=== PATIENT | female | born 1980 | race Caucasian/White ===

== ENCOUNTER → 2018-05-26 13:06 | Outpatient (CLI) | payer BC, SELFPAY ==
[2018-05-26 14:38] LABS: Absolute Eosinophil Count 0.23 k/cumm (0.0-0.7); Absolute Lymphocyte Count 2.21 k/cumm (1.2-3.4); Absolute Monocyte Count 0.41 k/cumm (0.11-0.7); Absolute Neutrophil Count 3.01 k/cumm (1.2-6.7); Basophils % 1.7; Eosinophils % 3.9; HCT 41.2 % (36.0-46.0); HGB 14.2 g/dL (12.0-15.5); Lymphocytes % 37.1; Mean Corp. HGB Concentration 34.5 g/dL (32.0-36.0); Mean Corpuscular Hemoglobin 29.5 pg (27.0-33.0); Mean Corpuscular Volume 85.5 fL (80-95); Mean Platelet Volume 9.7 fL (8.0-11.0); Monocytes % 6.9; Neutrophils % 50.4; Platelet Count 253 x1000/uL (130-400); RBC 4.82 m/cumm (4.00-5.20); RBC Distribution Width 12.6 % (11.7-14.6); White Blood Cell Count 5.96 k/cumm (4.4-10.8)
[2018-05-26 15:40] LABS: ALT 16 U/L (12-78); AST 17 U/L (15-37); Alkaline Phosphatase 56 U/L (46-116); Anion Gap 7.1 mmol/L (3-11); BUN 13 mg/dL (7-18); Bilirubin, Total 0.6 mg/dL (0.2-1.0); C-Reactive Protein 0.22 mg/dL (0.0-0.3); CO2 29.9 mmol/L (21.0-32.0); Calcium 8.9 mg/dL (8.5-10.1); Chloride 102 mmol/L (98-107); Glucose 82 mg/dL (70-100); Potassium 4.5 mmol/L (3.5-5.1); Sodium 139 mmol/L (136-145); TSH (W/Ref FT4) 1.66 uIU/mL (0.358-3.74); Total Protein 7.4 g/dL (6.4-8.2)
[2018-05-26 18:24] LABS: ESR 12 MM/HR (0-20)
[2018-05-26 21:01] LABS: T3,Free 2.9 pg/ml (2.8-5.3)
[2018-05-27 09:50] LABS: Rheumatoid Factor 10 IU/mL (<12.5)
[2018-05-27 14:01] LABS: ANA Interpretation Negative (NEGAT)
[2018-05-27 15:22] LABS: Lyme Ab w Rflx to Lyme Confirm Negative
[2018-05-28 14:54] LABS: Anaplasma phagocytophilum Negative (Negative); B. miyamotoi PCR Negative (Negative); Babesia divergens/MO-1 Negative (Negative); Babesia duncani Negative (Negative); Babesia microti Negative (Negative); Ehrlichia chaffeensis Negative (Negative); Ehrlichia ewingii/canis Negative (Negative); Ehrlichia muris eauclairensis Negative (Negative)
== END ==
PROVIDERS: PCP Nurse Practitioner; Visit Provider Nurse Practitioner
DX: E03.9 Hypothyroidism, unspecified (principal); R53.83 Other fatigue; M25.571 Pain in right ankle and joints of right foot; M25.572 Pain in left ankle and joints of left foot; M79.641 Pain in right hand; M79.642 Pain in left hand; R63.8 Other symptoms and signs concerning food and fluid intake; R22.0 Localized swelling, mass and lump, head
CPT/HCPCS: 36415; 80053; 85652; 84443; 84481; 85025; 86038; 86140; 86431; 86618; 87798

== ENCOUNTER 2019-01-03 09:04 | Outpatient (REF) | payer BC, SELFPAY ==
--- NOTE | 2019-01-03 09:00 | PAPFT_PTH ---
PATIENT: Sherry Skelton LOC: E[facility] U#:[id number] AGE/SX: 38/F ROOM: RE01/03/[address]: Pat Ceron APRN : 1980 BED: DIS: 01/03/2019 SPEC #: [id number] RECD: 01/03/19 13:18 STATUS: MAI RESuzie #: [id number] BOONE: 01/03/19 09:[address]: Pat Ceron DEPT: [facility] Cytology RECD BY: Desirae Ann Tissues: 1 - CX/ENDOCX FOR PAP SMEARS Procedures: PAP THIN PREP/UVM Screening HPV DNA PROBE Comments: [id number]
== END 2019-01-03 09:24 ==
LOC: LBN 09:04
PROVIDERS: PCP Nurse Practitioner; Visit Provider Nurse Practitioner
DX: Z12.4 Encounter for screening for malignant neoplasm of cervix (principal); Z11.51 Encounter for screening for human papillomavirus (HPV)
CPT/HCPCS: 88142; 87624

== ENCOUNTER → 2019-03-16 15:53 | Outpatient (CLI) | payer BC, SELFPAY ==
[2019-03-16 14:01] LABS: TSH (W/Ref FT4) 1.75 uIU/mL (0.358-3.74)
== END ==
PROVIDERS: PCP Nurse Practitioner; Visit Provider Nurse Practitioner
DX: E03.9 Hypothyroidism, unspecified (principal)
CPT/HCPCS: 36415; 84443

== ENCOUNTER 2019-08-30 11:42 | Outpatient (CLI) | payer BC, SELFPAY ==
[2019-08-30 12:30] LABS: HCT 37.6 % (36.0-46.0); HGB 12.5 g/dL (12.0-15.5); Mean Corp. HGB Concentration 33.2 g/dL (32.0-36.0); Mean Corpuscular Hemoglobin 28.9 pg (27.0-33.0); Mean Corpuscular Volume 86.8 fL (80-95); Mean Platelet Volume 9.5 fL (8.0-11.0); Platelet Count 166 x1000/uL (130-400); RBC 4.33 m/cumm (4.00-5.20); RBC Distribution Width 14.3 % (11.7-14.6); White Blood Cell Count 8.14 k/cumm (4.4-10.8)
[2019-08-30 14:53] LABS: ALT 612 U/L (14-59); AST 562 U/L (15-37); Albumin 3.2 g/dL (3.4-5.0); Alkaline Phosphatase 358 U/L (46-116); Anion Gap 10.7 mmol/L (3-11); BUN 8 mg/dL (7-18); Bilirubin, Total 0.5 mg/dL (0.2-1.0); CO2 26.3 mmol/L (21.0-32.0); CREATININE 0.91 mg/dL (0.55-1.02); Calcium 8.6 mg/dL (8.5-10.1); Chloride 104 mmol/L (98-107); Glucose 104 mg/dL (74-106); Potassium 3.9 mmol/L (3.5-5.1); Sodium 141 mmol/L (136-145); TSH (W/Ref FT4) 2.76 uIU/mL (0.36-3.74); Vitamin B12 1670 pg/mL (193-986)
[2019-08-30 14:57] LABS: Ferritin > 1000 ng/mL (8-252)
== END 2019-08-30 12:02 ==
PROVIDERS: PCP Nurse Practitioner; Visit Provider Nurse Practitioner
DX: E03.9 Hypothyroidism, unspecified (principal); R53.83 Other fatigue; R60.9 Edema, unspecified; R11.0 Nausea; I10 Essential (primary) hypertension
CPT/HCPCS: 36415; 80053; 85027; 82607; 82728; 84443

== ENCOUNTER 2019-08-31 11:29 | Outpatient (CLI) | payer BC, SELFPAY ==
[2019-08-31 12:47] LABS: Iron 54 ug/dL (50-170); Total Iron Binding Capacity 271 ug/dL (250-450); Transferrin Sat 20 % (15-50)
[2019-08-31 13:10] LABS: Mono Screening POSITIVE (Negative)
[2019-09-01 10:43] LABS: Hepatitis B Surface Ag Negative (Negative); Hepatitis C Ab w Rflx HCV PCR Negative (Negative)
[2019-09-01 13:35] LABS: Hep B Surface Ab Positive (See Note); Hepatitis B Core Antibody Negative (Negative); Hepatitis B Surface Antigen Negative (Negative)
[2019-09-01 13:48] LABS: HBs Antibody, Quant 226.8 mIU/mL
[2019-09-01 15:49] LABS: ANA Interpretation Negative (Negative)
== END 2019-08-31 11:49 ==
PROVIDERS: PCP Nurse Practitioner; Visit Provider Nurse Practitioner
DX: R94.5 Abnormal results of liver function studies (principal); Z11.59 Encounter for screening for other viral diseases
CPT/HCPCS: 36415; 86704; 86706; 86803; 87340; 83540; 83550; 86038; 86308

== ENCOUNTER 2020-06-22 02:15 | Outpatient (CLI) | payer BC, SELFPAY ==
[2020-06-22 12:54] LABS: ALT 29 U/L (14-59); AST 24 U/L (15-37); Albumin 3.6 g/dL (3.4-5.0); Alkaline Phosphatase 49 U/L (46-116); Anion Gap 7.1 mmol/L (3-11); BUN 12 mg/dL (7-18); Bilirubin, Total 0.6 mg/dL (0.2-1.0); CO2 26.9 mmol/L (21.0-32.0); CREATININE 1.06 mg/dL (0.55-1.02); Calcium 8.9 mg/dL (8.5-10.1); Chloride 104 mmol/L (98-107); Estimated GFR 58.33 (mL/min/1.73m2); Glucose 84 mg/dL (74-106); Potassium 4.7 mmol/L (3.5-5.1); Sodium 138 mmol/L (136-145); TSH (W/Ref FT4) 2.74 uIU/mL (0.36-3.74); Total Protein 6.5 g/dL (6.4-8.2)
== END 2020-06-22 02:35 ==
PROVIDERS: PCP Nurse Practitioner; Visit Provider Nurse Practitioner
DX: E03.9 Hypothyroidism, unspecified (principal); I10 Essential (primary) hypertension
CPT/HCPCS: 36415; 80053; 84443

== ENCOUNTER 2021-07-15 13:45 | Outpatient (CLI) | payer BC, SELFPAY ==
[2021-07-15 14:34] LABS: FREE T4 1.17 ng/dL (0.76-1.46); TSH 2.71 uIU/mL (0.36-3.74)
[2021-07-15 16:07] LABS: Anion Gap 6.8 mmol/L (3-11); BUN 11 mg/dL (7-18); CO2 28.2 mmol/L (21.0-32.0); CREATININE 0.9 mg/dL (0.55-1.02); Calcium 8.9 mg/dL (8.5-10.1); Chloride 104 mmol/L (98-107); Glucose 79 mg/dL (74-106); Potassium 4.4 mmol/L (3.5-5.1); Sodium 139 mmol/L (136-145)
== END 2021-07-15 13:46 | disposition home or self-care (01) ==
LOC: LBO 13:45
PROVIDERS: PCP Nurse Practitioner; Visit Provider Nurse Practitioner Family
DX: E03.9 Hypothyroidism, unspecified; I45.6 Pre-excitation syndrome
CPT/HCPCS: 36415; 80048; 84439; 84443

== ENCOUNTER 2021-12-13 04:02 | Outpatient (CLI) | payer OTHER, BC, SELFPAY ==
[2021-12-13 16:29] LABS: HCG Quant, Pregnancy 10 mIU/mL (1-3); TSH 1.69 uIU/mL (0.36-3.74)
[2021-12-13 22:39] LABS: Estradiol 46 pg/mL (See Note)
[2021-12-14 13:24] LABS: Antimullerian Hormone 3.6 ng/mL (0.15-7.5)
[2021-12-15 17:33] LABS: Testosterone, Total 27 ng/dL (8-60)
[2021-12-16 10:53] LABS: FSH 3.3 mIU/mL (See Note); Prolactin 17.6 ng/mL (See Table)
== END 2021-12-13 04:03 | disposition home or self-care (01) ==
PROVIDERS: Obstetrics & Gynecology; PCP Nurse Practitioner; Visit Provider Obstetrics & Gynecology
DX: N91.4 Secondary oligomenorrhea (principal); O26.851 Spotting complicating pregnancy, first trimester
CPT/HCPCS: 36415; 84403; 82670; 83001; 83520; 84146; 84443; 84702

== ENCOUNTER 2022-03-07 16:39 | Emergency (ER) | payer OTHER, SELFPAY ==
[2022-03-07 16:45] VITALS: BP 134/81; PULSE 106; RESP 18; TEMP 36.5; O2SAT 100
--- NOTE | 2022-03-07 17:08 | W.ED.GENAD ---
Discharge Plan Discharge Details Chief Complaint: GenMedical Primary Care Provider: Pat Ceron ED Provider: Hayden Short Home Meds and New Rx's Prescriptions: No Action prenat.vits,rajinder,[id number]-zbynr Tablet 1 tab PO DAILY propranolol 60 mg capsule,extended release 24 hr 60 mg PO DAILY Qty: 90 3RF levothyroxine 50 mcg tablet 50 mcg PO DAILY Qty: 90 1RF mirtazapine 30 mg tablet 30 mg PO HS Qty: 90 3RF triamcinolone acetonide 0.1 % cream 1 applic topical BID Qty: 30 3RF multivitamin [Daily Vitamin] 1 EACH tablet 1 tab PO DAILY glucosamine sulfate 2KCl 1,000 MG tablet 1 tab PO DAILY Medical Decision Making 51-year-old for trimester . Positive COVID x1 day. Case discussed Dr. Palmer from [employer]. The plan is for the patient to bepaxlovid if her renal function is adequate HPI General Date/Time Provider Initiated Documentation: 03/07/22 16:43. HPI Narrative: 41-year-old presents to the emergency room for evaluation of myalgias arthralgias intermittent headaches mild cough, sore throat as well as low-grade fevers at home. She just returned from a trip to [place] and is concerned that she may have contracted some viral infection. She did take some Tylenol 9 AM this morning and did feel better. She felt a bit nauseous earlier today but no vomiting. She thought she was going to have diarrhea but she did not. She is vaccinated. Related Data Home Medications Medication Instructions Recorded Confirmed glucosamine sulfate 2KCl 1,000 mg 1 tab PO DAILY 04/06/13 02/17/22 tablet multivitamin (Daily Vitamin tablet) 1 tab PO DAILY 04/06/13 02/17/22 prenat.vits,rajinder,fmw-huye-ltdjw 1 tab PO DAILY 08/02/21 02/17/22 levothyroxine 50 mcg tablet 50 mcg PO DAILY #90 tab-caps 02/17/22 02/17/22 mirtazapine 30 mg tablet 30 mg PO HS #90 tabs 02/17/22 02/17/22 propranolol 60 mg capsule,24 60 mg PO DAILY #90 tabs 02/17/22 02/17/22 hr,extended release triamcinolone acetonide 0.1 % 1 applic topical BID #30 grams 02/17/22 02/17/22 topical cream Previous Rx's Medication Instructions Recorded levothyroxine 50 mcg tablet 50 mcg PO DAILY #90 tab-caps 02/17/22 mirtazapine 30 mg tablet 30 mg PO HS #90 tabs 02/17/22 propranolol 60 mg capsule,24 60 mg PO DAILY #90 tabs 02/17/22 hr,extended release triamcinolone acetonide 0.1 % 1 applic topical BID #30 grams 02/17/22 topical cream Allergies Allergy/AdvReac Type Severity Reaction Status Date / Time bupropion Allergy Intermediate Hives Verified 03/07/22 16:49 Sulfa (Sulfonamide Allergy Intermediate hives Verified 03/07/22 16:49 Antibiotics) General Stated Complaint: GenMedical KIM: 3 Review of Systems Narrative: Constitutional see HPI HPI HEENT see HPI Cardiovascular no palpitations Respiratory no shortness of breath GI see HPI diagnosed with yesterday. MSK see HPI Skin no rashes Neuro see HPI Endo negative Hematological negative PFSH All Active Problems Secondary oligomenorrhea (Acute) Anxiety (Acute) Depressive disorder (Chronic) Exercise-induced asthma (Acute 03/16/18) Hypothyroidism (Acute 12/07/13) Obsessive compulsive disorder (Acute) Vhnsi-Tbvgibrmc-Mptkp pattern (Acute) Medical History Bilateral wrist pain IC (interstitial cystitis) (12/01/16) Lumbar back pain Polycystic ovaries Right leg numbness Temporomandibular joint disorder Family History Mother Essential hypertension Heart disease Hyperlipidemia Mental disorder Thyroid disorder Father Personal history of malignant neoplasm LUNG Heart disease Mental disorder Grandfather Heart disease Mental disorder Grandfather Heart disease Mental disorder Grandmother Personal history of malignant neoplasm LUNG Heart disease Mental disorder Grandmother Heart disease Mental disorder Maternal Uncle Diabetes Heart disease Mental disorder Maternal Aunt Diabetes Heart disease Mental disorder Thyroid disorder 03/16/18-reports 3 aunts great aunt Arthritis Social History Smoking/Tobacco Use Status: Never Second Hand Exposure: No Smoking risk assessment performed?: Yes Alcohol Intake: never Drug use: Occasionally Substance use type: marijuana Adopted: No Caregiver/Support person: No Foster care: No Household members: spouse 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 Pets and animals: No Sexually active: Yes Do you think of yourself as: straight/heterosexual Current gender identity: female What is your relationship status?: How often do you talk on the phone with friends or family?: twice per week How often do you get together with friends or relatives?: once per week Do you belong to any clubs or organized social groups?: no Panel score (0-1 are the most socially isolated patients): 2 What type of physical activity do you participate in: bicycling, regular exercise and other Duration: 45-60 minutes/day Frequency: 3-4 times per week Special mukesh needs: No Seatbelt use: always Helmet use: Yes Helmet use: always Drive intox or ride w/intox class b truck driver: No Working smoke detector in home: Yes Fire extinguisher in home: Yes Carbon monox detector in home: Yes Do you feel safe at home: Yes Do you feel safe in your relationship?: Yes Victim of physical abuse: No Victim of emotional abuse: No Victim of sexual abuse: No History History 1 Para 0 Hx # Term Pregnancies 0 Multiple births 0 Hx # Pregnancies 0 Ectopic pregnancies 0 AB induced 0 Hx Number of Living Children 0 AB spontaneous 1 Exam Narrative Exam Narrative: Awake alert [place] x3 calm no acute distress. Cooperative and pleasant PERRLA EOMI MMM oropharynx normal Neck supple. No lymphadenopathy Regular rhythm and rate no murmurs Chest is clear to auscultation bilaterally Abdominal soft not distended not tender Skin no rashes normal cap refill Neuro grossly intact Extremities normal cap refill no edema Psych normal mood and affect Course Vital Signs Vital signs: Vital Signs Temperature 36.5 C 03/07/22 16:45 Pulse 106 H 03/07/22 16:45 Respiratory Rate 18 03/07/22 16:45 Blood Pressure 134/81 03/07/22 16:45 Pulse Oximetry 100 03/07/22 16:45 Temperature 36.5 C 03/07/22 16:45 Temperature Source Temporal Artery Scan 03/07/22 16:45 Pulse 106 H 03/07/22 16:45 Respiratory Rate 18 03/07/22 16:45 Respiratory Effort Non-Labored 03/07/22 16:49 Blood Pressure 134/81 03/07/22 16:45 Blood Pressure Position Sitting 03/07/22 16:45 Pulse Oximetry 100 03/07/22 16:45 Oxygen Delivery Method Room Air 03/07/22 16:45 Oxygen Flow Rate 0 03/07/22 16:45
[2022-03-07 17:37] LABS: Influenza A PCR Negative (Negative); Influenza B PCR Negative (Negative); RSV PCR Negative (Negative)
[2022-03-07 17:43] LABS: COVID-19 PCR Positive (Negative)
[2022-03-07 17:44] LABS: Source Nasopharynx
[2022-03-07 18:17] LABS: Bilirubin Negative (Negative); Blood Negative (Negative); Clarity Clear (Clear); Glucose Negative (Negative); Ketones Negative (Negative); Leukocyte Esterase Negative (Negative); Nitrite Negative (Negative); Specific Gravity 1.025 (1.005-1.025); Urobilinogen 0.2 EU/dL (Up TO 0.2); pH 5.5 (5-8)
[2022-03-07 19:14] LABS: Anion Gap 8.2 mmol/L (3-11); BUN 11 mg/dL (7-18); CO2 25.8 mmol/L (21.0-32.0); CREATININE 0.9 mg/dL (0.55-1.02); Calcium 9.1 mg/dL (8.5-10.1); Chloride 99 mmol/L (98-107); Glucose 91 mg/dL (74-106); Potassium 3.9 mmol/L (3.5-5.1); Sodium 133 mmol/L (136-145)
== END 2022-03-07 20:18 | disposition home or self-care (01) ==
PROVIDERS: Emergency Provider Emergency Medicine; PCP Nurse Practitioner
DX: O98.511 Other viral diseases complicating pregnancy, first trimester (principal); U07.1 COVID-19; Z3A.00 Weeks of gestation of pregnancy not specified
CPT/HCPCS: 80048; 87637; 99283; 81003

== ENCOUNTER 2022-03-25 06:20 | Day surgery (SDC) | payer OTHER, SELFPAY ==
[2022-03-25] VITALS (8 sets, daily range): BP systolic 88–121; BP diastolic 34–74; PULSE 73–88; RESP 15–22; TEMP 36–36.7; O2SAT 97–100; BMI 30.2
--- NOTE | 2022-03-25 06:55 | ANES.PREOP_ITS ---
General Info Date of Service Date Performed: 03/25/22 Height: 5 ft 6 in Weight: 84.9 kg Body Mass Index (BMI): 30.2 Surgical Procedure: Operation Date: 03/25/22 07:40 Proposed Procedure Side Surgeon p Suction Completion, D&C Beverly Coyle DO Meds Allergies and Home Medications Allergies Allergy/AdvReac Type Severity Reaction Status Date / Time bupropion Allergy Intermediate Hives Verified 03/21/22 14:03 Sulfa (Sulfonamide Allergy Intermediate hives Verified 03/21/22 14:03 Antibiotics) Home Medication Medication Instructions Recorded glucosamine sulfate 2KCl 1,000 mg 1 tab PO DAILY 04/06/13 tablet multivitamin (Daily Vitamin tablet) 1 tab PO DAILY 04/06/13 prenat.vits,rajinder,ubj-yios-qqnlo 1 tab PO DAILY 08/02/21 levothyroxine 50 mcg tablet 50 mcg PO DAILY #90 tab-caps 02/17/22 mirtazapine 30 mg tablet 30 mg PO HS #90 tabs 02/17/22 propranolol 60 mg capsule,24 60 mg PO DAILY #90 tabs 02/17/22 hr,extended release triamcinolone acetonide 0.1 % 1 applic topical BID #30 grams 02/17/22 topical cream Current Visit Medications: Current Medications Generic Name Dose Route Start Last Admin Trade Name Freq PRN Reason Stop Dose Admin Ringer's Solution 1,000 mls @ 125 mls/hr 03/25/22 06:00 IV 04/23/22 23:59 INFUSION RAJWINDER Doxycycline Hyclate 100 mg/ 100 mls @ 100 mls/hr 03/25/22 06:00 Sodium Chloride IVPB 03/25/22 16:00 PREOP RAJWINDER IV Miscellaneous Supplies 1 each 03/25/22 06:00 Iv Access IV 04/23/22 23:59 DIRECTED RAJWINDER Sodium Chloride 0 ml 03/25/22 06:00 Normal Saline Flush 10 Ml Syr IV 04/23/22 23:59 PRN PRN Sodium Chloride 0 ml 03/25/22 06:00 Normal Saline 10 Ml Vial IJ 04/23/22 23:59 DIRECTED PRN Sterile Water 0 ml 03/25/22 06:00 Water,Injection,Sterile 10 Ml Vial IJ 04/23/22 23:59 DIRECTED PRN PFSH Active Problems Active Problems: Problem Status Onset Code COVID-19 affecting in first trimester O98.511, U07.1 Secondary oligomenorrhea N91.4 Anxiety F41.9 Depressive disorder F32.9 Exercise-induced asthma 03/16/18 J45.990 Hypothyroidism 12/07/13 E03.9 Obsessive compulsive disorder F42.9 Bmavx-Sosfkndqu-Qekff pattern I45.6 Medical History Medical History Bilateral wrist pain IC (interstitial cystitis) (12/01/16) Lumbar back pain Polycystic ovaries Right leg numbness Temporomandibular joint disorder Tobacco Smoking/Tobacco Use Status: Never Passive smoking exposure: No Second hand exposure: No Alcohol Alcohol Intake: never Substance Use Substance use: Occasionally Substance use type: marijuana Details: Alcohol and marijuna use have stopped since + test. Prental History History 1 Para 0 Hx # Term Pregnancies 0 Multiple births 0 Hx # Pregnancies 0 Ectopic pregnancies 0 AB induced 0 Hx Number of Living Children 0 AB spontaneous 1 Past Pregnancies Del. Date GA/Weeks # Outcome Route Wgt Sex Labor Lgth Anesthes ia Loc ation Prov Complic 08/26/21 8 No Unsuccessful Vital Signs and Lab Results Lab Results Blood Type / Crossmatch: No Data to Display Complete Blood Count: No Data to Display Complete Metabolic Panel: Sodium Level 133 mmol/L (136-145) L 03/07/22 18:05 Potassium Level 3.9 mmol/L (3.5-5.1) 03/07/22 18:05 Chloride Level 99 mmol/L (98-107) 03/07/22 18:05 Carbon Dioxide Level 25.8 mmol/L (21.0-32.0) 03/07/22 18:05 Blood Urea Nitrogen 11 mg/dL (7-18) 03/07/22 18:05 Creatinine 0.9 mg/dL (0.55-1.02) 03/07/22 18:05 Estimated GFR/1.73 m2 >= 60.00 (mL/min/1.73m2) 03/07/22 18:05 Calcium Level 9.1 mg/dL (8.5-10.1) 03/07/22 18:05 Glucose Level 91 mg/dL (74-106) 03/07/22 18:05 Liver Function Panel: No Data to Display Coagulation Panel: No Data to Display Cardiac Panel: No Data to Display Arterial Blood Gas: No Data to Display Venous Blood Gas: No Data to Display Pancreas Panel: No Data to Display Thyroid Panel: No Data to Display Infectious Disease: Coronavirus (COVID-19)(PCR) Positive (Negative) A 03/07/22 16: 53 Coronavirus 2019 Source Nasopharynx 03/07/22 16:53 Influenza Virus Type A (PCR) Negative (Negative) 03/07/22 16:5 3 Influenza Virus Type B (PCR) Negative (Negative) 03/07/22 16:5 3 Respiratory Syncytial Virus (PCR) Negative (Negative) 03/07/22 16:53 Blood Cultures: No Data to Display Toxicology Panel: No Data to Display Panel: Urine HCG, Qualitative Positive 03/06/22 14:40 Anesthesia Assessment and Plan Anesthesia History Personal History: No History of Anesthesia Complications Family History: No Family History of Anesthesia Complications Exercise Tolerance Exercise Tolerance: Metabolic Equivalents>4 Pertinent Negatives Pertinent Negatives: No Symptoms of GERD, No Major Cardiovascular Symptoms or Complaints, No Major Pulmonary Symptoms or Complaints and No History of CVA/TIA Cardiac & Pulmonary Exam Cardiac Exam: Normal S1/S2 Heart Sounds Pulmonary Exam: Clear Bilateral Breath Sounds Implantable Cardiac Device Does patient have a Pacemaker or an ICD?: No Airway Exam Known Difficult Airway: No Mallampati Class: 1 Mouth Opening: Normal (> 3cm) Thyromental Distance: Greater than 3 cm Neck Range of Motion: Full ROM Neck Circumference: Normal Teeth Condition: Normal Dentition ASA Classification ASA Score: ASA 2 Emergency Case?: No NPO Status NPO Status: NPO Clears >2 hours, Solids >8 hours Status Status: Other (Suction completion ) Anesthesia Plan Resuscitation Status: Full Code Anesthesia Technique: General Anesthesia Airway Planned: LMA Monitors Used: Standard Monitors
[2022-03-25] MEDS: Lactated Ringers 1,000 ML 125 ML IV (07:00)
[2022-03-25] MEDS: DOXYCYCLINE 100 MG in Normal Saline 100 ML IVPB (07:01)
[2022-03-25 07:11] LABS: Abs Immature Grans 0.07 10^3/uL (0.0-0.06); Absolute Basophil Count 0.07 10^3/uL (0.0-0.2); Absolute Lymphocyte Count 1.43 10^3/uL (1.2-3.4); Basophils % 0.6; Eosinophils % 0.8; HCT 35.8 % (36.0-46.0); HGB 12.7 g/dL (11.2-15.7); Immature Grans % 0.6; Lymphocytes % 11.5; MCH 29.6 pg (27.0-33.0); MCHC 35.5 % (32.0-36.0); MCV 83 fL (80-95); MPV 9.4 fL (8.0-11.0); Monocytes % 6.3; Neutrophils % 80.2; Platelet Count 233 10^3/uL (130-400); RBC 4.29 10^6/uL (3.93-5.22); RDW 11.8 % (11.7-14.6); RDW-SD 35.6 fL; WBC 12.45 10^3/uL (4.4-10.8)
[2022-03-25 07:12] LABS: Absolute Monocyte Count 0.78 10^3/uL (0.1-0.8); Absolute Neutrophil Count 9.98 10^3/uL (1.2-6.7)
--- NOTE | 2022-03-25 07:39 | NUR.NOTE ---
About 1min after starting Doxycycline IV infusion pre-op, pt c/o of feeling pain like fire at the IV site. IV abx immediately stopped, LR resumed at 125ml/hr, pt noted relief after about 30-60 seconds of stopping the abx and starting the IV flush. Prachi Lemons CRNA made aware and indicated that we would not resume the abx until patient was asleep in the OR. The patient's reaction to the abx and instruction from Prachi Lemons CRNA was relayed to Maegan Silverio, circulating nurse, and Dr. Coyle who both verbalized understanding. Pt verbalized understanding and comfort with this plan as well.
--- NOTE | 2022-03-25 07:55 | POCSPONT_PTH ---
PATIENT: Sherry Skelton LOC: [facility] U#:[id number] AGE/SX: 41/F ROOM: RE03/25/[address]: Beverly Coyle DO : 1980 BED: DIS: 03/25/2022 SPEC #: [id number] RECD: 03/25/22 12:02 STATUS: MAI RE #: [id number] BOONE: 03/25/22 07:[address]: Beverly Coyle DEPT: Surgical Specimen RECD BY: Desirae Ann ENTERED: 03/25/22 12:04 SP TYPE: BRENNON BAUTISTA DR: Pat Ceron APRN Tissues: 1 - ,SPONTANEOUS CHROMOSOME ANALYSIS PROFILE Procedures: GROSS AND MICRO LEVEL 4 CHROMOSOME ANALYSIS 15-20 CELLS CHROMOSOME ANALYSIS TISSUE CULTURE Comments: [id number] (SUBMITTED IN [facility], [employer] - [id number])
--- NOTE | 2022-03-25 08:46 | ROE_ITS ---
Date of service: 03/25/22 Time of Service: 08:46 Operative Note Operative Note DATE OF PROCEDURE: 03/25/22 PRE-OP DIAGNOSIS: Missed POST-OP DIAGNOSIS: same PROCEDURE: Dilation curettage with suction SURGEON: Beverly Coyle ANESTHESIA TYPE: General LMA/ETT Refer to Anesthesia Record ESTIMATED BLOOD LOSS: 75 PATHOLOGY: other (1. Products of conception 2. Products of conception for karyotype) COMPLICATIONS: None Patient was transported to: same day Patient's condition: stable Indications: Missed Findings: Moderate products of conception Procedure Description: After full informed consent was obtained, and patient received 100 mg of doxycycline IV, she was transported to the operating suite where she is placed in dorsal supine position. General anesthesia administered via LMA without difficulty. She is placed in the modified dorsolithotomy position in yellowfin stirrups and prepped and draped in the usual sterile fashion. Exam under anesthesia revealed a uterus that was midline and mobile approximately 6 to 8 weeks size. At this point speculum was inserted and an Allis clamp was used to grasp the anterior lip of the cervix. Cervical os was gently dilated to the point that a 7 Swedish suction curette could be passed without difficulty. With gentle suction curettage the uterine cavity was emptied of contents. A second sharp curettage was performed and the coarse cry of the uterus could be felt in all 4 quadrants. A repeat suction curettage was performed for scant tissue. Uterus was firm and involuted post procedure. Allis clamp and speculum were removed. Patient was returned to the dorsal supine position and awoke from anesthesia with ease. She was taken the recovery room in stable condition. Pathology: 1. Products of conception 2. Products of conception for karyotype EBL: 100 mL Complications: None apparent Fluids: Crystalloid per anesthesia
--- NOTE | 2022-03-25 09:51 | W.ANESPOSTOP ---
Postoperative Evaluation Date, Time and Location Date Performed: 03/25/22 Time Performed: 09:51 Patient Location: Day Surgery Unit Vital Signs Most Recent Imported Vital Signs: Most Recent Vital Signs Temp Pulse Resp BP Pulse Ox 36.3 C L 73 16 115/73 99 03/25/22 09:05 03/25/22 09:05 03/25/22 09:05 03/25/22 09:05 03/25/22 09:05 Pain Score Most Recent Pain Score: Most Recent Pain Score Pain Level 0 03/25/22 09:05 Assessment Mental Status: Awake (Alert & Oriented to Patient Baseline) Airway and Respiratory Function: Patent airway with normal (patient baseline) respiratory exam Cardiovascular Function: Hemodynamically Stable Hydration Status: Adequately Hydrated Nausea & Vomiting: No Nausea or Vomiting Pain: Pain is tolerable per patient Peripheral Nerve Block: Patient did not receive a nerve block
== END 2022-03-25 09:57 | disposition home or self-care (01) ==
PROVIDERS: PCP Nurse Practitioner; Visit Provider Obstetrics & Gynecology
PROC: (CPT 59841; principal; 2022-03-25 07:30)
DX: O02.1 Missed abortion (principal); O98.511 Other viral diseases complicating pregnancy, first trimester; U07.1 COVID-19; F32.A Depression, unspecified; F41.9 Anxiety disorder, unspecified; E03.9 Hypothyroidism, unspecified; O99.281 Endocrine, nutritional and metabolic diseases complicating pregnancy, first trimester; Z3A.00 Weeks of gestation of pregnancy not specified; I45.6 Pre-excitation syndrome; J45.990 Exercise induced bronchospasm; O99.511 Diseases of the respiratory system complicating pregnancy, first trimester; O99.411 Diseases of the circulatory system complicating pregnancy, first trimester; O99.341 Other mental disorders complicating pregnancy, first trimester
CPT/HCPCS: 59820; 36415; 86850; 86900; 86901; 88305; 85025; 88233; 88262; J0131; J1100; J1200; J1885; J2250; J2405

== ENCOUNTER 2022-04-07 19:51 | Outpatient (REF) | payer OTHER, SELFPAY | END 2022-04-07 19:52 | disposition home or self-care (01) | LOC: LBN 19:51 | PROVIDERS: PCP Nurse Practitioner; Visit Provider Nurse Practitioner Family | DX: J02.9 Acute pharyngitis, unspecified (principal) | CPT/HCPCS: 87070 ==

== ENCOUNTER 2022-05-09 01:59 | Outpatient (CLI) | payer OTHER, SELFPAY ==
--- OUTSIDE RECORDS SUMMARY | 2022-05-09 02:11 | XMS_ITS | Encounter Summary ---
:1980 Author Organization [facility] Address [address] [place] [address] Care Team Providers Name Role Phone Cindi Espinoza MD Primary Care Provider Reason for Visit Reason Comments Infertility Miscarriage Encounter Details Date Type Department Care Team Description 04/25/2022 Telemedicine [facility] Sheryl Noriega Miscarriage (Primary Reproductive Medicine MD Tyra Dx) [facility] - [address] [place] [address] [address] [place] [address] [address], [place] [address] (Wo rk) Social History Tobacco Use Types Packs/Day Years Used Date Never Smoker Smokeless Tobacco: Never Used Alcohol Use Standard Drinks/Week Comments Yes 0 (1 standard drink = 0.6 oz pure alcoho l) occassional ~4 drinks per year Alcohol Habits Answer Date Recorded How often do you have a drink containing Not asked alcohol? How many drinks containing alcohol do Not asked you have on a typical day when you are drinking? How often do you have six or more drinks Not asked on one occasion? Comment: occassional ~4 drinks per year Sex Assigned at Date Recorded Not on file documented as of this encounter Last Filed Vital Signs Vital Sign Reading Time Taken Comments Blood Pressure - - Pulse - - Temperature - - Respiratory Rate - - Oxygen Saturation - - Inhaled Oxygen Concentration - - Weight 79.8 kg (176 lb) 04/25/2022 1026 EDT Height 167.6 cm (5' 6) 04/25/2022 1026 EDT Body Mass Index 28.41 04/25/2022 1026 EDT documented in this encounter Progress Notes Sheryl Noriega MD - 04/25/2022 1000 EDT Images from the original note were not included. [facility] REGINALD Telehealth visit - Follow up Chief Complaint Patient presents with ??? Infertility ??? Miscarriage Sherry, 41 y.o. is contacted for an (audio-visual) Telehealth visit. Today's visit was provided through telemedicine conferencing: Using [employer] platform. Consent: The concept of telemedicine?? has been described to the patient. Patient has been informed of the anticipated benefits and possible risks. Patient understands the information provided regarding telemedicine, has had the opportunity to ask questions about this information, and all questions have been answered to patient's satisfaction. Patient consents for the use of telemedicine in his/her medical care and authorizes the transmission of any relevant medical information to providers and their staffinvolved in patient's medical or mental health care. The location of the patient : Home The location of the provider: Office The following staff and their role did participate in today's encounter visit: Sheryl Noriega MD ROSAURA Talbert is a 41 yo with hypothyroidism, here for follow up to review results of fertility testing and discuss management options. Had initial consult on 01/10/22: IUD placed in 2017 due to very irregular periods (about 2 per year). IUD taken out in March of 2021 in order to attempt conception. She conceived in May and had a miscarriage in July 2021 that wastreated with misoprostol. She was 12 weeks at the time but she states the was 8 weeks in size. The misoprostol was a horrible experience with very painful contractions. She has been trying to conceive since this time without success. She notes very irregular and long periods about every 37-42 days with a lot of intermenstrual spotting and ovulation pain. Conceived the same cycle as had HyCoSy, but miscarried. Saw embryo with heartbeat, then follow up scan at 8 weeks no more heartbeat. Had D&C 03/25/22; chromosome testing of POC still in process. First menses after miscarriage in July of last year was 6 weeks later after took Miso. Component Latest Ref Rng & Units 12/13/2021 01/24/2022 Estradiol See Note pg/mL 46 Prolactin See Table ng/mL 17.6 FSH See Note mIU/mL 3.3 Antimullerian Hormone (AMH) Result 3.74 (92%ile) 25OH Vitamin D Tot 30 - 100 ng/mL 38 HyCoSy 01/24/22 LMP on 01/18/2022. Day of cycle: 7. Uterus ======= Uterus: Appears normal Uterus position: Anteverted Uterine malformations: None Myometrium: Appears normal Endometrium: Trilaminar endometrium Cervix details: Normal appearance Uterus long 10.3 cm Uterus ap 4.1 cm Uterus tr 5.0 cm Endometrial thickness, total 7.3 mm Fibroids: No fibroids identified Polyps: No polyps identified Procedure SIS procedure: risks,benefits and procedure reviewed with the patient. Consent signed. Speculum exam,cervix washed X 3 with betadine. Catheter placed and saline instilled under US observation. Patient tolerated procedure. HyCoSy shows normal cavity with no epithelial or intracavitary lesions and bilateral flow of air bubbles out the tubal ostia and free fluid in cul de sac afterward consistent with bilateral tubal patency. Right Ovary Rt ovary: Visualized, normal appearance Rt ovary morphology: Normal physiologic changes Rt ovary D1 3.0 cm Rt ovary D2 1.5 cm Rt ovary D3 1.8 cm Rt ovary mean 2.1 cm Rt ovary vol 4.1 cm cubed Rt ovary other findings: AFC = 7 Left Ovary Lt ovary: Visualized, normal appearance Lt ovary morphology: normal physiologic changes Lt ovary D1 2.6 cm Lt ovary D2 2.5 cm Lt ovary D3 2.0 cm Lt ovary mean 2.3 cm Lt ovary vol 6.5 cm cubed Lt ovary other findings: AFC = 9 Cul de Sac Appears normal. No free fluid visualized. ======== Impression Normal uterus, trilaminar endometrium. SHG: Coronal rendered image of the uterus shows a normal uterine cavity. HyCoSy showed preferential flow out the left tube; able to see a small flash on the right with righthip raised, then free fluid next to the right ovary. Normal ovaries with combined AFC of 16. Semen analysis for Yovany Ceja Latest Ref Rng & Units 01/31/2022 Partner Sherry Sanon Referring Provider Arsen Time Received 1,115 Received by Examined at 1,135 Viscosity Norm/Viscous normal pH 7.2 - 9 8.4 Specimen Volume >=1.5 ml 2.6 Sperm Count >=15 M/ml 55 Total Sperm Count >=39 Million 143 Motility >=40% 56 Motility, Speed of Progression(graded),POC 3+UndulatingRapidProg Total Motile Sperm <=10mill do IUI scrn million 80.1 Round Cells per 200X per 200X 1 Normal Forms >=4 % 3 (L) PAST MEDICAL HX: Past Medical History: Diagnosis Date ??? Anxiety and depression ??? Hypothyroidism ??? OCD (obsessive compulsive disorder) ??? Atlam-Efexcabwx-Hzrpe (WPW) syndrome ablation in 1994 PAST SURGICAL HX: Past Surgical History: Procedure Laterality Date ??? ATRIAL ABLATION SURGERY 1994 ??? TEMPOROMANDIBULAR JOINT SURGERY Bilateral 2011 ??? WISDOM TOOTH EXTRACTION FAMILY HX: family history includes Heart Disease in her paternal grandfather; Thyroid Cancer/Nodule in her maternal aunt; Thyroid Disease in her mother. SOCIAL HX: reports that she has never smoked. She has never used smokeless tobacco. She reports current alcohol use. She reports current drug use. Drug: Marijuana. MEDICATIONS: Current Outpatient Medications Medication Sig Dispense Refill ??? Xwxzxpwcuvq-Vdzcpedjl-Lfz C-Mn (GLUCOSAMINE-CHONDROITIN COMPLX) Cap Take by mouth daily. ??? levothyroxine (SYNTHROID) 50 mcg tablet Take 50 mcg by mouth daily. ??? MIRTAZAPINE ORAL Take 30 mg by mouth. ??? Multivitamins with Minerals Tab Take 1 Tab by mouth daily. ??? propranolol HCl (PROPRANOLOL ORAL) Take 60 mg by mouth. No current facility-administered medications for this visit. ALLERGIES: Allergies Allergen Reactions ??? Aspirin GI upset If taken 2-3 days in a row ??? Other - See Comments Rash Fragrance/perfumes-itchy nose, burning skin ??? Sulfa (Sulfonamide Antibiotics) rash ??? Wellbutrin [Bupropion Hcl] Hives 10 Point ROS :Systems reviewed found to be negative except as above. OBJECTIVE: Vitals: 04/25/22 1026 Weight: 79.8 kg (176 lb) Height: 167.6 cm (66) Body mass index is 28.41 kg/m??. General: NAD alert and oriented ??3, answers questions appropriately Assessment/Plan: 41 yo with oligo-ovulation after miscarriages, hypothyroidism well controlled on synthroid. Next TSH check due in June. For 2 miscarriages, recommend to wait and see if POC show aneuploid embryo in which case no additional testing is indicated. If euploid, could test for APLS since other endocrine testing has been done within past year and all normal (Vit D, prolactin, TSH). Offered diabetes screen, declined for now. Discussed that thrombophilias have not been shown to be significantly associated with recurrent loss so these tests are no longer recommended for this scenario. We reviewed the results of their fertility testing as detailed above, and discussed the impact of female age on fertility: She can expect ~8% chance of per ovulatory cycle with one egg released. Can increase chance of conception with superovulation with clomid, plan to start with 50 mg CD 5-9 then OPK/ timed intercourse. Reviewed 5-7% risk of twins and ~1:500 risk of triplets with clomid (likely lower than this given her age). 1/3 of women experience side effects such as hot flashes, moodiness, headaches, or breast tenderness She will call with next menses to get clomid Rx. The alternative is IVF; we reviewed this process briefly today. Discussed 8 month wait list; they have completed workup and would like to be on the list. I spent a total of 25 minutes on the date of this encounter meeting with the patient and reviewing documentation/coordinating care as described in the above note. No procedures were performed at the time of the visit. Sheryl Noriega MD documented in this encounter Plan of Treatment Not on filedocumented as of this encounter Visit Diagnoses Diagnosis Miscarriage - Primary Unspecified spontaneous without mention of complication documented in this encounter Historical Medications This list may reflect changes made after this encounter. Medication Sig Dispensed Refills Start Date End Date levothyroxine (SYNTHROID) 50 Take 50 mcg by 0 mcg tablet mouth daily. added in this encounter Care Teams Marketing Services Specialist Relationship Specialty Start Date End Date Cindi Espinoza MD PCP - General 01/20/12 [address] [place] [address] documented as of this encounter
--- OUTSIDE RECORDS SUMMARY | 2022-05-09 02:11 | XMS_ITS | Encounter Summary ---
:1980 Author Organization [facility] Address [address] [place] [address] Care Team Providers Name Role Phone Cindi Espinoza MD Primary Care Provider Reason for Visit Reason Onset Date Comments Appointment Related 04/28/2022 Encounter Details Date Type Department Care Team Description 04/28/2022 Telephone [facility] Sheryl Noriega, Appointment Related Women's Services - [address] [address] [address], [place] [id number] (Wo rk) Social History Tobacco Use Types [...] on file documented as of this encounter Ordered Prescriptions Prescription Sig Dispensed Refills Start Date End Date clomiPHENE (CLOMID) 50 mg Take 1 Tablet by 5 Tablet 0 04/11 tablet mouth daily. documented in this encounter Miscellaneous Notes Telephone Encounter - Trista Samayoa RN - 04/28/2022 1519 EDT OPK and Timed [place] Cycle Cycle number: 1 Plan: Clomid 50 mg/OPK/TI 1.) Call from patient- Date: 04/28/2022 Time: 15:19 2.) Last Menstrual Period: 04/26/22 WNL?: yes Does pt need HCG/P4 drawn prior to starting medication: no UPT prior to medication: yes If pt is using home UPT to r/o : Pt will call to notify us of +UPT; ok to start medicationif -UPT. Pt verbalized understanding. Labs ordered: no Faxed to outside lab: no Faxed to: Mid-Luteal Progesterone needed this cycle: no Date needed: 3.) OK to proceed? yes Is pt using Ovulation Induction medication: yes A.) Ovulation Induction Medication: Clomid Dose: 50 mg Cycle days: 5-9 Pharmacy: [facility] Refills:0 Pt to call clinic if no +OPK by CD21. Pt verbalized understanding of when to start using OPK (CD#10, and daily until positive) and timing of timed intercourse (every other day starting the day of +OPK x1 week). Pt to call with next menses or UPT result two weeks after +OPK. TRISTA SAMAYOA RN 04/28/2022 15:19 Left pt VM to inform of RX sent, advised to call with questions or send [employer] message (activation link sent) elephone Encounter - Hodan Marinelli - 04/28/2022 1237 EDT Are you calling for gynecological, obstetric, or reproductive care? Fertility Have you been seen here before? Yes If yes, who do you see (Refer to if cant remember)? REGINALD Reason for Call as described by patient: Discussed going on chlomid with Dr Noriega on Thursday and wastold to call in with next cycle - cycle began on Thursday 04/26. Preferred Pharmacy is located in the [facility] ([facility]) What is the best phone number for us to reach you back at? [phone] Does this number have a voicemail, is it ok to leave a detailed message? Yes Hodan Marinelli 04/28/2022 12:37 documented in this encounter Plan of Treatment Not on filedocumented as of this encounter Visit Diagnoses Not on filedocumented in this encounter Care Teams Electrogalvanizing Machine Operator Relationship Specialty Start Date End Date Cindi Espinoza MD PCP - General 01/20/[address] [place] [id number] documented as of this encounter
--- OUTSIDE RECORDS SUMMARY | 2022-05-09 02:12 | XMS_ITS | Encounter Summary ---
:1980 Author Organization [facility] Address [address] [place] [address] Care Team Providers Name Role Phone Cindi Espinoza MD Primary Care Provider Encounter Details Date Type Department Care Team Description 03/26/2022 Lab Requisition [facility] Beverly Coyle Encounter for other Pathology & [address] [facility] general examination Laboratory Medicine [facility] [id number] [address] [facility] [phone] [place] [address] (Work) [phone] Social History Tobacco Use Types Packs/Day Years [...] on file documented as of this encounter Plan of Treatment Pending Results Name Type Priority Associated Diagnoses Date/Ti me CHROMOSOME ANALYSIS Pathology Today Encounter for other 0 03/25/2022 7:55 EDT general examination documented as of this encounter Visit Diagnoses Diagnosis Encounter for other general examination documented in this encounter Care Teams Pipe Stem Aligner Relationship Specialty Start Date End Date Cindi Espinoza MD PCP - General 01/20/12 [address] [place] [address] documented as of this encounter
--- OUTSIDE RECORDS SUMMARY | 2022-05-09 02:12 | XMS_ITS | Encounter Summary ---
:1980 Author Organization [facility] Address [address] [place] [address] Care Team Providers Name Role Phone Cindi Espinoza MD Primary Care Provider Reason for Visit Reason Onset Date Comments Referral Request 01/27/2022 Encounter Details Date Type Department Care Team Description 01/27/2022 Telephone [facility] Sheryl Noriega, Referral Request Women's Services - [address] [address] [address], [place] [address] (Wo rk) Social History Tobacco [...] on file documented as of this encounter Miscellaneous Notes Telephone Encounter - Marija Choi - 01/27/2022 1121 EDT This patients partner called saying he needs a semen analysis but there is no request in his chart. Name is Yovany Skelton [birth year]. I told him someone could call back to give clarity on this yovany small reached at: [phone] documented in this encounter Plan of Treatment Not on filedocumented as of this encounter Visit Diagnoses Not on filedocumented in this encounter Care Teams Blood Tester Relationship Specialty Start Date End Date Cindi Espinoza MD PCP - General 01/20/[address] [place] [id number] documented as of this encounter
--- OUTSIDE RECORDS SUMMARY | 2022-05-09 02:12 | XMS_ITS | Encounter Summary ---
:1980 Author Organization [facility] Address [address] [place] [address] Care Team Providers Name Role Phone Cidni Espinoza MD Primary Care Provider Encounter Details Date Type Department Care Team Description 01/21/2012 Hospital Encounter [facility] Crow Hernandez, Perioperative Services- DMD [facility] [address] [facility] [address] [place] [address] [place], [place] [phone] (Wo rk) Social History Tobacco Use Types Packs/Day Years Used Date Never Assessed Sex Assigned at Date Recorded Not on file documented as of this encounter Last Filed Vital Signs Vital Sign Reading Time Taken Comments Blood Pressure 128/74 01/21/2012 1015 EDT Pulse - - Temperature 36.2 ??C (97.2 ??F) 01/21/2012 1015 EDT Respiratory Rate 19 01/21/2012 1015 EDT Oxygen Saturation 98% 01/21/2012 1015 EDT Inhaled Oxygen Concentration - - Weight 68 kg (150 lb) 01/07/2012 0853 EDT Height 167.6 cm (5' 6) 01/07/2012 0853 EDT Body Mass Index 24.21 01/07/2012 0853 EDT documented in this encounter Discharge Instructions Darci Mitchell - 01/21/2012 Diet: Soft Activity Restrictions: No activity that could result in blow to head or face, No driving while on pain medication and Resumption of work as tolerated Treatments: Apply ice to face as needed. Bathing: Okay to get wound wet, but pat dry. Do NOT rub the wound area. Pending Results: Not applicable Symptoms to Call Your Doctor About: Increased or new pain Pain unrelieved by medication Appointments: See Crow Carlson, DMD. Please call for an appointment. Follow-up Services Contacted at Discharge: none Health Risk and Disease Information: Not applicable documented in this encounter Medications at Time of Discharge Medication Sig Dispensed Refills Start Date End Date Kwqkmqdovuv-Icyuqahyn-Hfl Take by mouth 0 C-Mn daily. (GLUCOSAMINE-CHONDROITIN COMPLX) Cap Multivitamins with Minerals Take 1 Tab by 0 Tab mouth daily. DESOGESTREL-ETHINYL Take by mouth 0 ESTRADIOL (ORTHO-CEPT, 28, daily. ORAL) hydrocodone-acetaminophen Take 1 Tab by 50 Tab 0 012 01/10/2022 (LORTAB;VICODIN) 5-500 mg mouth every 4 per tablet hours. documented as of this encounter Ordered Prescriptions Prescription Sig Dispensed Refills Start Date End Date hydrocodone-acetaminophen Take 1 Tab by mouth 50 Tab 0 0 01/21/2012 01/10/2022 (LORTAB;VICODIN) 5-500 mg every 4 hours. per tablet documented in this encounter Discharge Disposition Disposition Code Departure Means Destination Home or Self Care documented in this encounter Progress Notes Praveen Fernandes - 01/07/2012 0852 EDT Sherry Sanon has been instructed as follows regarding medication administration for the day of thescheduled procedure. Date of Surgery: 01/21/2012 Instructions for Taking Medications Day of Surgery Medication Last Dose Hold DOS Take DOS Multivitamins with Minerals Tab 01/14/2012 DESOGESTREL-ETHINYL ESTRADIOL (ORTHO-CEPT, 28, ORAL) Yes Ckycjgwvkyz-Hnaonrgke-Qbv C-Mn (GLUCOSAMINE-CHONDROITIN COMPLX) Cap 01/14/2012 documented in this encounter H&P Notes BEAN PICKER MACHINE OPERATOR, GAYLE 2 - 01/26/2012 1235 EDT Crow Eugene DMD - 01/21/2012 0716 EDT The preoperative history and physical which was performed within 30 days of this procedure has been reviewed and the clinically appropriate elements of the physical examination havebeen repeated. There are no changes to the documented history and physical or if so such changes aredocumented below CROW HERNANDEZ DMD 01/21/2012 7:16 documented in this encounter Procedure Notes BEAN PICKER MACHINE OPERATOR, SCAN 2 - 01/26/2012 1235 EDTAssociated Order(s): ECG REPORT - SCANNED documented in this encounter Nursing Notes BEAN PICKER MACHINE OPERATOR, SCAN 2 - 01/26/2012 1235 EDT documented in this encounter OR Notes OR PreOp - BEAN PICKER MACHINE OPERATOR, SCAN 2 - 01/26/2012 1235 EDT R Surgeon - Crow Hernandez DMD - 01/21/2012 0943 EDT OPERATIVE REPORT SERVICE DATE: 01/21/2012 PREOPERATIVE DIAGNOSIS: 1. Bilateral TMJ osteoarthritis with arthralgia. 2. Bilateral temporalis tendinitis. POSTOPERATIVE DIAGNOSIS: 1. Bilateral TMJ osteoarthritis with superior joint space adhesions. 2. Bilateral temporalis tendinitis. PROCEDURE: 1. Bilateral TMJ arthroscopies with inspection of joints, lysis of adhesion, lavage of joints and placement of intracapsular steroids. 2. Bilateral steroid injections into temporalis tendons. SURGEON: Crow Hernandez DMD WATER TRUCK DRIVER: Anibal Estrada MD, Darci Vargas DMD and Darci Wright DDS ANESTHESIA: General. FLUIDS: 800 mL of lactated Ringer's. ESTIMATED BLOOD LOSS: Less than 20 mL. COMPLICATIONS: None. INDICATIONS: This 31-year-old female has had a longstanding history of bilateral TMJ pain and dysfunction. She has been followed by Dr Flakito Carney with splint therapy. She has had continued pain, however, and iCAD images done by Dr Carney showed osteoarthritic changes. Due to her continued discomfort, it was decided that arthroscopic inspection and lysis of adhesions in the temporomandibular joint was indicated in an effort to reduce her arthralgia. She presents today at [facility] for that procedure as well as steroid injections into her temporalis tendons to treat her temporalis tendinitis. NARRATIVE: Under general anesthesia with nasoendotracheal intubation, attention was first directed intraorally where 10 mg of Depo-Medrol mixed with 0.5% Marcaine was injected into the temporalis tendon at their attachment to the coronoid process bilaterally. The patient was then prepped and draped inthe standard manner for preauricular approaches to the temporomandibular joints. Attention was first directed to the patient's left side, where the joint was palpated and marked. One milliliters of 0.5% Marcaine was injected into the superior joint space and then using an 11 blade,a small skin incision was made and blunt dissection carried down to the joint capsule. Then 5 mm anterior to that point, a 14-gauge needle was inserted into the superior joint space and the joint spaceexpanded with heparinized lactated Ringer's. Using the arthroscopic sheath with a sharp trocar, the joint capsule was punctured then a blunt probe placed in the sheath and the sheath further advanced. The arthroscope was then placed into the sheath and placement within the superior joint space was conf irmed. Inspection of the joint on the left side showed some inflammatory changes in the attachment tissues of the disk. The disk itself was slightly anteriorly displaced. There were adhesions along themedial aspect of the disk surface and a small amount of adhesions in the anterior compartment. The adhesions were clearly lysed and then the joint thoroughly irrigated. Instrumentation was removed and attention directed to the patient's right side. Identical technique was used for placement of the instrumentation. Inspection of this joint showed increased inflammatory changes in the attachment tissues. The disk, again, was slightly anteriorly displaced. There were numerous adhesions along the superior surface of the disk, especially on the medial components. There were minimal adhesions in the anterior compartment. The blunt probe was used to do blind passes and lyse the adhesions. The joint was further inspected, showing that the adhesions had been lysed. The joint was thoroughly irrigated and then instrumentation removed. A single 6-0 Prolene suture was placed over the small skin incisions. Then 10 mg of Depo-Medrol mixed with 0.5% Marcaine was injected into each superior joint space. Both external auditory canals were irrigated free of all debris and following extubation, the patient returned to the recovery room in satisfactory condition. I was present for the entire surgical procedure. Unless otherwise noted, there were no complications, no blood loss, no cultures obtained, no specimens removed, and no drains retained. Crow Hernandez DMD 09 00 AM / Crow Hernandez DMD general laborer Confirmation: [id number] Dictation ID: [id number] cc:Mejia Carney DDS Crow Hernandez DMD nesthesia Procedure Notes - BEAN PICKER MACHINE OPERATOR, SCAN 2 - 01/21/2012 0913 EDT R PreOp - BEAN PICKER MACHINE OPERATOR, SCAN 2 - 01/21/2012 0903 EDT nesthesia Preprocedure Evaluation - BEAN PICKER MACHINE OPERATOR, SCAN 2 - 01/21/2012 0732 EDT documented in this encounter Miscellaneous Notes Scanned Note-Null - BEAN PICKER MACHINE OPERATOR, SCAN 2 - 01/26/2012 1235 EDT canned Note- Null - BEAN PICKER MACHINE OPERATOR, SCAN 2 - 01/26/2012 1235 EDT nesthesia Post-Eval - Loulou Anthony (Magdalena) - 01/21/2012 1038 EDT Post Anesthesia Evaluation Note Date of Service: 01/21/2012 Sherry Sanon, a 31 y.o. year old female has received General Anesthesia today. She has been evaluated, assessed and discharged from anesthesia care with stable cardiorespiratory function and alert mental status. The last set of recorded vital signs and pain rating were reviewed: Temp: 36.2 ??C (97.2 ??F) (01/21/12 0909), Heart Rate: 100 BPM (01/21/12 1000), BP: 117/73 mmHg (01/21/12 1000), Resp: 17 (01/21/12 1000), SpO2: 100 % (01/21/12 1000),Numeric Pain Level (Scale 1-10): 6 Sherry Sanon participated in this evaluation unless otherwise noted. Her pain, nausea and vomiting have been managed and her body temperature and fluid balance have been restored. The patient tolerated the dental procedure under general anesthesia without apparent anesthetic complications. LOULOU ANTHONY MD (ANES) 01/21/2012 10:38 rief Op Note - Anibal Estrada MD - 01/21/2012 0737 EDT Oral Maxillofacial Surgery Brief Post-Op Note Date of Surgery: 01/21/2012 Surgeon: Crow Hernandez DMD Assistants: ANIBAL ESTRADA MD, DARCI VARGAS DDS, DARCI SHARMA DDS Pre-Op Diagnosis: TMJ arthropathy, temporalis tendonitis Post-Op Diagnosis: same Procedure(s): bilateral TMJ arthroscopy, bilateral Temporalis tendinitis Medical Problem list: There is no problem list on file for this patient. Findings: 1) Adhesions of the right and left joint space 2) significant inflammatory changes to the R>L disc 3) anteriorly displaced right disc Anesthesia Type: General Estimated Blood Loss: Unless otherwise noted, there was no blood loss, specimens removed, cultures obtained, or drains retained. The estimated blood loss was Minimal Fluids: Sherry Sanon received Crystalloids 750 mL of fluid replacement. Urine Output: NR Specimens/Cultures: None Drains/Packs: None Complications: None Disposition and Condition: Sherry Sanon was sent to PACU in Good condition. ANIBAL ESTRDAA MD 01/21/2012 7:38 documented in this encounter Plan of Treatment Not on filedocumented as of this encounter Procedures Procedure Name Priority Date/Time Associated Diagnosis Comme nts ECG REPORT - 01/26/2012 12:35 Results for this SCANNED EDT procedure are i n the results section. documented in this encounter Results ECG REPORT - SCANNED (01/26/2012 12:35 EDT) Specimen Narrative This result has an attachment that is no t available. Transcriptions BEAN PICKER MACHINE OPERATOR, SCAN 2 - 01/26/2012 12:35 EDT documented in this encounter Visit Diagnoses Not on filedocumented in this encounter Administered Medications Inactive Administered Medications - up to 3 most recent administrations Medication Order MAR Action Action Date Dose Rate Site ceFAZolin (ANCEF) syringe 1 g Given by Other 01/21/2012 7:45 EDT 1 g 1 g, intravenous, Administer over 10 Minutes, PRE-OP ONCE, 1 dose, On Thu01/21/12 at 0715, Routine fentanyl citrate (PF) 50 mcg/mL injection 25-100 Given 01/21/2012 9:36 EDT 50 mcg mcg 25-100 mcg, intravenous, EVERY 5 MIN PRN, Starting on Thu01/21/12 at 0902, Until Ann 01/22/12 at 0159, Pain, Routine, Recovery (only) hydrocodone-acetaminophen (LORTAB;VICODIN) Given 01/21/2012 10:1 5 EDT 1 Tablet 5-500 mg per tablet 1-2 Tab 1-2 Tablet, oral, PRN, 2 doses, Starting on Thu01/21/12 at 0902, Until Ann 01/22/12 at 0159, Pain, Routine, Recovery (only) lactated ringers (LR) infusion New Bag 01/21/2012 7:13 EDT 25 mL/hr at 25 mL/hr, intravenous, CONTINUOUS, Starting on Thu01/21/12 at 0730, Until Ann 01/22/12 at 0159, Routine, Pre-Op DOS Rx Approved lactated ringers (LR) infusion New Bag 01/21/2012 10:13 EDT 75 mL/hr at 75 mL/hr, intravenous, CONTINUOUS, Starting on Thu01/21/12 at 0930, Until Ann 01/22/12 at 0159, Routine, Recovery (only) documented in this encounter Historical Medications This list may reflect changes made after this encounter. Medication Sig Dispensed Refills Start Date End Date Oamyevnivvv-Bstubtjmv-Ryw Take by mouth 0 C-Mn daily. (GLUCOSAMINE-CHONDROITIN COMPLX) Cap Multivitamins with Minerals Take 1 Tab by 0 Tab mouth daily. DESOGESTREL-ETHINYL Take by mouth 0 ESTRADIOL (ORTHO-CEPT, 28, daily. ORAL) added in this encounter Active and Recently Administered Medications Times are shown in EDT. Scheduled Medication Order 01/19/2012 01/20/2012 01/21/2012 ceFAZolin (ANCEF) syringe 1 g (COMPLETED) 0745 (Given by Other - Provider: Casandra Ervin RN - Comment: given by anesthesia) 1 g, Intravenous, for 10 Minutes, PRE-OP ONCE, 1 dose, Thu at 0715 Continuous Medication Order 01/19/2012 01/20/2012 01/21/2012 lactated ringers (LR) infusion (CANCELED) 0713 (New Bag - Provider: Rosey Ramires, DEEPIKA) at 25 mL/hr, Intravenous, CONTINUOUS, St arting Thu01/21/12 at 0730, Until Ann 01/22/12 at 0159 lactated ringers (LR) infusion (CANCELED) 1013 (New Bag - Provider: Maegan Suazo, DEEPIKA) at 75 mL/hr, Intravenous, CONTINUOUS, St arting Thu01/21/12 at 0930, Until Ann 01/22/12 at 0159 PRN Medication Order 01/19/2012 01/20/2012 01/21/2012 fentanyl citrate (PF) 50 mcg/mL injection 25-100 mcg (CANCELED) 0936 (Given - Provider: Maegan Suazo, DEEPIKA) 25-100 mcg, Intravenous, EVERY 5 MIN PRN , Starting 01/21/12 at 0902, Until Ann 01/22/12 at 0159, Pain hydrocodone-acetaminophen (LORTAB;VICODI N) 5-500 mg per tablet 1-2 Tab (CANCELED) 1015 (Given - Provid er: Maegan Suazo RN) 1-2 Tab, Oral, PRN, 2 doses, Starting We d 01/21/12 at 0902, Until Ann 01/22/12 at 0159, Pain documented in this encounter Orders Medications Ordered That Might Not Have Count Last Ord ered Date First Ordered Date Been Administered atropine 0.1 mg/mL 10 mL syringe 0.5 mg 1 01/21/20 12 diphenhydrAMINE (BENADRYL) injection 6.25 1 2011 mg naloxone (NARCAN) injection 0.2 mg 1 01/21/2012 ondansetron (PF) (ZOFRAN) injection 2 mg 1 012 Nursing Count Last Ordered Date First Ordered Date INSERT PERIPHERAL IV 1 01/21/2012 Admission Count Last Ordered Date First Ordered Date NOTIFY PPS PATIENT ARRIVAL IN PACU 1 01/21/2012 Discharge Count Last Ordered Date First Ordered Date DISCHARGE PATIENT 1 01/21/2012 documented in this encounter Care Teams Cigar Tobacco Processing Supervisor Relationship Specialty Start Date End Date Cindi Espinoza MD PCP - General 01/20/12 [address] [place] [address] documented as of this encounter
--- OUTSIDE RECORDS SUMMARY | 2022-05-09 02:12 | XMS_ITS | Encounter Summary ---
:1980 Author Organization [facility] [place] [address] [place] [address] Care Team Providers Name Role Phone Cindi Espinoza MD Primary Care Provider Reason for Visit Reason Comments Alopecia Encounter Details Date Type Department Care Team Description 02/03/2012 Office Visit Dermatology Renny George, Alopecia (Primary Dx) [address] [facility] [address] [place], [place] DERMATOLOGY [address] [place] [address] [phone] (Wo rk) Social History Tobacco Use Types Packs/Day Years Used Date Never Smoker Sex Assigned at Date Recorded Not on file documented as of this encounter Progress Notes Renny George MD - 02/03/2012 5:06 PM EDT Problem: Alopecia. Sherry is a 31-year-old woman who has noted for some time recession of frontal hairline in the front and a little bit also on the back of her scalp. She is concerned because there is a strong history genetically of hair loss in her family. Her paternal aunt has very thin hair; her mother who is 56 has very thin hair; and her dad is bald. The patient has not noted any significant shedding of hair. There has not been an increase in what she gets in her hairbrush or what she notes in the shower drain. She has otherwise been healthy. Dr. Espinoza apparently has checked TFTs, which have been low normal, and the patient has never been diagnosed with iron deficiency/anemia. She does have a history of polycystic ovarian syndrome and is on Ortho-Cept for that, which works well for her. Otherwise, she is on glucosamine and a multivitamin. The patient is referred today in consultation by Cindi Espinoza. Physical examination reveals a pleasant, 31-year-old who has some mild recession of the frontal hairline centrally but also in the Studienrat pattern at either upper outer corner of her forehead. Miniaturization of hairs is noted in these locations. However, looking through the rest of her scalp, she has a good hair density and a 2-mm hair part both in the parietal and in the occipital scalp. Hair pull is negative. There is no dermatitis, scaling, or erythema of her scalp. The patient is brown eyed with fair, reddish-brown hair. Assessment and Plan: Alopecia. a. The patient really does not have any significant alopecia at this time, although we discussed that certainly genetically this may be a future problem for her. It is not clinically manifested, however, at this time that I can see on today's examination. b. I recommended strongly that she be sure to get adequate protein intake every day. Discussed the importance of protein for hair metabolism. Informational handout was given on how to be sure she gets at least 45 grams of protein in her diet every day. c. Patient reassured. d. I recommended return to clinic here on a p.r.n. basis. Copy: Cindi Espinoza M.D. documented in this encounter Plan of Treatment Not on filedocumented as of this encounter Visit Diagnoses Diagnosis Alopecia - Primary Alopecia, unspecified documented in this encounter Care Teams Job Tracer Relationship Specialty Start Date End Date Cindi Espinoza MD PCP - General 08/20/11 [address] [place] [address] documented as of this encounter
--- OUTSIDE RECORDS SUMMARY | 2022-05-09 02:12 | XMS_ITS | Encounter Summary ---
:1980 Author Organization [facility] Address [address] [place] [address] Care Team Providers Name Role Phone Cindi Espinoza MD Primary Care Provider Encounter Details Date Type Department Care Team Description 03/25/[address] [facility] Beverly Coyle Encounter for other Pathology & [address] [facility] general examination Laboratory Medicine [facility] [id number] [address] [facility] [phone] [place] [address] (Work) [phone] Social History Tobacco Use Types Packs/Day Years [...] as of this encounter Plan of Treatment Not on filedocumented as of this encounter Procedures Procedure Name Priority Date/Time Associated Diagnosis Comme nts SURGICAL PATHOLOGY Today 03/25/2022 7:55 EDT Encounter for o ther Results for this general examination procedur e are in the results section. documented in this encounter Results SURGICAL PATHOLOGY (03/25/2022 7:55 EDT) Note to Patient The following [facility] pathology results CENTER have been interpreted LABORATORY by your pathologist SERVICES and may be available to you before your health provider has had the opportunity to review them. Please allow time for your provider to receive these results and explore management options, if applicable. Final Diagnosis A. INTRAUTERINE CONTENTS, EVACUATION: [facility] - Chorionic villi, decidua, and gestational-type endometrium, consistent with products of conception. CENTER LABORATORY SERVICES Attestation There was significant [facility] Electr onically resident/fellow CENTER signed by Edin rodriguez involvement in the LABORATORY Jacqueline Diaz MD diagnostic evaluation SERVICES on 03/13 at 1740 of this case. By the signature below, the attending physician certifies that they have personally conducted a gross and/or microscopic examination of the described specimens and rendered or confirmed the above diagnosis. Clinical History Missed Ab [facility] Gross Description A. [facility] Received in formalin nadia d with proper patient identification (initials M, R) and products of conception is an aggregate of finch-brown soft tissue fragments admixed with dark brown blood clot (9.8 x CENTER 8.5 x 0.6 cm) containing po ssible villous tissue and gestational sac. tissue is not identified. Home Service Demonstrator sections submitted in A1-A3. LABORATORY SERVICES JANNET HESTER([facility]) 03/26/2022 11:40 Resident/Fellow: Robinson Carmona MD [facility] Performing Lab [facility] Scanned Images [facility] Specimen Tissue - Products of conception tissue s ample (specimen) Performing Organization Address City/State/ZIP Code Phon e Number [facility] [address] [place] [address] SERVICES documented in this encounter Visit Diagnoses Diagnosis Encounter for other general examination documented in this encounter Care Teams Slat Basket Maker Helper Machine Relationship Specialty Start Date End Date Cindi Espinoza MD PCP - General 01/20/12 [address] [place] [address] documented as of this encounter
--- OUTSIDE RECORDS SUMMARY | 2022-05-09 02:12 | XMS_ITS | Encounter Summary ---
:1980 Author Organization [facility] Address [address] [place] [id number] Care Team Providers Name Role Phone Cindi Espinoza MD Primary Care Provider Reason for Referral Prior Authorization (See Order Priority) - Specialty Report Received Specialty Diagnoses / Procedures Referred By Contact Refer red To Contact Diagnoses Fertility testing Montrell Crouch MD Mp4 Ivf Procedures CHG SEMEN ANALYSIS,VOLUME, COUNT, MOTILITY, DIFF CHG SONO PELVIS LIMITED CHG SONO EXAM, HYSTEROSONOGRAPHY CHG X-RAY HYSTEROSALPINGOGRAM CO CATH/INJECT HYSTEROSALPINGOGRAM CO OFFICE/OUTPATIENT NEW LOW MDM 30-[address] [place] [address] CO OFFICE/OUTPATIENT NEW MOD ERATE MDM 45-59 MINUTES CO OFFICE/OUTPATIENT EST PT MAY NOT REQ PHYS/QHP [place], [place] [id number] [place] [address], [address] [place] [address] Referral ID Status Reason Start Expiration Visits Visits Date Date Requested Authorized [id number] Specialty Specialty 01/11/2022 1 1 Report Services Received Required Question Answer Reason for Request: infertility testing and dorinda tment Comments The purpose of this request is to inform precertification staff that the requested service needs to be reviewed for prior-a uthorization. B/BALANCE WHEEL FACER (Routine/Next Available) - Specialty Report Received Specialty Diagnoses / Procedures Referred By Contact Refer red To Contact Diagnoses Fertility testing Syeda Leger DO [facility] BALANCE WHEEL FACER/REGINALD Procedures US HYSTEROSONOGRAPHY [address] [facility] 4 [place] [address] Referral ID Status Reason Start Date Expiration Date Visits V isits Requested Authorized [id number] Specialty 01/10/2022 1 1 Report Received Reason for Visit Reason Comments Infertility Encounter Details Date Type Department Care Team Description 01/10/2022 Telemedicine [facility] Center Montrell Crouch (Primary Dx); Reproductive Medicine MD Tyra Encounter for preconception consultation & Infertility Center [address] [address] [place] [phone] (Wo rk) Social History Tobacco Use Types [...] - Inhaled Oxygen Concentration - - Weight 79.4 kg (175 lb) 01/10/2022 1036 EDT Height 167.6 cm (5' 6) 01/10/2022 1036 EDT Body Mass Index 28.25 01/10/2022 1036 EDT documented in this encounter Progress Notes Lexi Mendoza MD - 01/10/2022 1030 EDT [facility] Reproductive Medicine Telehealth Visit Sherry, 41 y.o. is contacted for an (audio-visual) Telehealth visit. Today's visit was provided through telemedicine conferencing: Using [employer] platform. Consent: The concept of telemedicine?? has [...] care. The location of the patient : home The location of the provider: office The following staff and their role did participate in today's encounter visit: (1) Montrell Crouch MD, REGINALD Attending (2) Syeda Leger DO, PGY5 REGINALD Fellow (3) Yumiko Mendoza DO, PGY2 OBGYN Resident HPI: Gali is a 41 yo here for an infertility consult. She had an IUD placed in 2017 due tovery irregular periods (about 2 per year). She then had her IUD taken out in March of 2021 in order to attempt conception. She conceived in May and had a miscarriage in July 2021 that was treated with misoprostol. She was 12 weeks at the time but she states the was 8 weeks in size. The misoprostol was a horrible experience with regular and very painful contractions. She has been trying to conceive since this time without success. She notes very irregular and long periods about every 37-42 days with a lot of intermenstrual spotting and ovulation pain. The last two months she has done LH test strips that have been positive, and she also can tell that she is ovulating based on symptoms. Her weight fluctuates a lot and she has gained about 11-12 pounds since her in 2020. She weighs 175 lbs now. Menstrual and Endocrine History LMP 12/14/21 Menses irregular Shortest Interval 37 Longest Interval 42 days Duration of flow 2 days, spotting 5 days prior Heavy Menses Yes, tampon every 2 hours for 1 day Dysmenorrhea Cramping after ovulation Amenorrhea no Hirsutism No hirsutism, + acne (not cystic) Galactorrhea no Obstetrical History OB History Para Term AB Living 1 1 0 SAB TAB Ectopic Multiple Live Births 1 # Outcome Date GA Lbr Long/2nd Weight Sex Delivery Anes PTL Lv 1 SAB 07/2021 8w0d Comments: SAB treated with misoprostol @12 weeks, fetus 8 week size Gynecologic History Last PAP 12/2018 NILM, age 20 had HPV-->colpo and cryo Previous abdominal or pelvic surgery no Pelvic Pain ovarian pain when ovulating Endometriosis no Hot Flashes no Abnormal Pap Yes, HPV age 20 Cervix Cryo/cone Yes age 20 STD no PID no Infertility and Endocrine Studies BBT no Ovulation Predictor Kit Yes, last 2 months HSG no Laparoscopy no Hormonal Studies Yes, see below Semen analysis no Other Studies no Meds no Other Therapies no Antral Follicle Count no Sexual History Dyspareunia Yes, with ovulation Couple is having intercourse with adequate frequency to maximize chance of conception Yes, 5 times in 7 days around ovulation Use of Lubricant no Family History Thyroid Problems mother and aunt with hashimotos, aunt with thyroid cancer Defects/Inherited diseases no Cysticfibrosis no Age Mother Underwent Menopause Mid 50's There are no problems to display for this patient. PMH PSH Past Medical History: Diagnosis Date ??? Anxiety and depression ??? Hypothyroidism ??? OCD (obsessive compulsive disorder) ??? Whafi-Gwntyxjqh-Zfdxj (WPW) syndrome ablation in 1994 Past Surgical History: Procedure Laterality Date ??? ATRIAL ABLATION SURGERY 1994 ??? TEMPOROMANDIBULAR JOINT SURGERY Bilateral 2011 ??? WISDOM TOOTH EXTRACTION Social History Family history Social History Tobacco Use ??? Smoking status: Never Smoker ??? Smokeless tobacco: Never Used Substance Use Topics ??? Alcohol use: Yes Comment: occassional ~4 drinks per year ??? Drug use: Yes Types: Marijuana Comment: ~6 times per year Family History Problem Relation Age of Onset ??? Thyroid Disease Mother ??? Heart Disease Paternal Grandfather heart attach at 45 ??? Thyroid Cancer/Nodule Maternal Aunt Medications Current Outpatient Medications on File Prior to Visit Medication Sig Dispense Refill ??? Fydltwbnsoe-Ujxqvpgjg-Opb C-Mn (GLUCOSAMINE-CHONDROITIN COMPLX) Cap Take by mouth daily. ??? MIRTAZAPINE ORAL Take 30 mg by mouth. ??? Multivitamins with Minerals Tab Take 1 Tab by mouth daily. ??? propranolol HCl (PROPRANOLOL ORAL) Take 60 mg by mouth. No current facility-administered medications on file prior to visit. Allergies Allergies Allergen Reactions ??? Aspirin GI upset If taken 2-3 days in a row ??? Other - See Comments Rash Fragrance/perfumes-itchy nose, burning skin ??? Sulfa (Sulfonamide Antibiotics) rash ??? 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 Wt Readings from Last 1 Encounters: 01/10/22 79.4 kg (175 lb) GEN: NAD Labs: Ref. Range 12/13/2021 12:34 Estradiol Latest Ref Range: See Note pg/mL 46 FSH Latest Ref Range: See Note mIU/mL 3.3 Prolactin Latest Ref Range: See Table ng/mL 17.6 Ref. Range 10/20/2007 16:07 DHEA Sulfate Latest Ref Range: 44 - 332 ug/dl 105 FSH Latest Units: mIU/ml 3.6 HCG Latest Ref Range: <4 mIU/ml <4 LH Latest Units: mIU/ml 14.1 Prolactin Latest Units: ng/ml 15.9 Sex Hormone Binding Globulin Latest Ref Range: 18 - 114 nmol/L 119.0 (H) Testosterone, Free Latest Ref Range: 0.1 - 1.5 ng/dl 0.2 Testosterone, Total Latest Ref Range: 14 - 76 ng/dL 36 TSH Latest Ref Range: 0.35 - 5.00 uIU/mL 1.40 Imaging: none Assessment: 41 y.o. presenting to discuss evaluation for infertility. Plan: - In terms of preconception counseling, recommended she continue to take a vitamin. She hasbeen tested for Rubella, varicella and Measles IgG and was found to be not immune to measles, had a booster shot in the fall. Offered carrier screening, reviewed cost, risks and benefits. Patient will think about it and let us know. Reviewed risk of low vitamin D in early miscarriage, will check vitamin D levels today - Will check ovarian reserve with an AMH level. Plan for TVUS/HyCOSY to assess for polyps or other structural abnormalities of the uterine cavity given her hx of spotting and evaluate for tubal patency; patient will call with CD#1 to schedule between CD 5-12. -Recommend semen analysis for her partner. He needs to set up an electronic medical record with [facility] so that we can order this test. - Schedule follow up once testing is complete, to review results and discuss management options as indicated. - Insurance precert request submitted. Patient seen and counseled directly with attending REGINALD physician Dr. Montrell Crouch. Lexi Mendoza D.O. 01/10/2022 11:58 OBGYN PGY-2 Attestation statement: I saw and counseled the patient with the resident and fellow at the time of the visit. I agree with the findings and the plan of care documented in the above note. We spent a total of 45 minutes on the date of this encounter meeting with the patient and reviewing documentation/coordinating care as described in the above note. No procedures were performed at the time of the visit. Montrell Crouch MD Reproductive Endocrinology and Infertility documented in this encounter Miscellaneous Notes Addendum Note - Montrell Crouch MD - 01/10/2022 1030 EDT Addended by: MONTRELL CROUCH on: 01/11/2022 12:17 Modules accepted: Orders documented in this encounter Plan of Treatment Scheduled Referrals Name Type Priority Associated Order Schedule Diagnoses AMB CONS/FOLLOW UP Outpatient Routine/Next Fertility testing Expe cted: IN CLINIC PROCEDURES Referral Available 022 PRIOR AUTHORIZATION (Alf irene), REQUEST Expires: 01/11/2023 documented as of this encounter Results VITAMIN D (25,OH) (01/24/2022 14:01 EDT) 25OH Vitamin D 38 30 - 100 [facility] Comment: ng/mL [facility] Vitamin D 25,OH Interpretive Ranges: SERV ICES Deficiency: ??<10.0 ng/mL Insufficiency: ??10.0 - 30.0 ng/mL Sufficiency: ??30.0 - 100.0 ng/mL Toxicity: ??>100.0 ng/mL Specimen Blood - Venous blood (substance) Performing Organization Address City/State/ZIP Code Phon e Number [facility] [address] [place] [address] SERVICES ANTIMULLERIAN HORMONE ([facility]) [facility] (01/24/2022 14:01 EDT) Pathologist Sig nature Antimullerian Hormone Comment: See [facility] ([facility]) Result scanned/suppleme ntary report. Specimen Blood - Venous blood (substance) Narrative This result has an attachment that is no t available. Performing Organization Address City/State/ZIP Code Phon e Number [facility] [address] [id number] [place] [id number] [facility] US HYSTEROSONOGRAPHY (01/24/2022 13:24 EDT) Anatomical Region Laterality Modality Ultrasound Specimen Narrative [facility] - 01/24/2022 14:44 EDT Indication Fertility Testing. Assessment LMP on 01/18/2022. Day of cycle: 7. Uterus ======= Uterus: ?Appears normal Uterus position: ?? Anteverted Uterine malformations: None Myometrium: ?Appears normal Endometrium: ?? Trilaminar endometrium Cervix details: ?Normal appearance Uterus long ?10.3 cm Uterus ap ??4.1 cm Uterus tr ??5.0 cm Endometrial thickness, total ?? 7.3 mm Fibroids: ??No fibroids identified Polyps: ?No polyps identified Procedure SIS procedure: risks,benefits and proced ure reviewed with the patient. Consent signed. Speculum exam,cervix washed X 3 with betadine. Catheter placed and saline instilled under US observation. Patient tolerated procedure. HyCoSy shows normal cavity with no epith elial or intracavitary lesions and bilateral flow of air bubbles out the tubal ostia and free fluid in cul de sac afterward consistent with bilateral tubal patency. Right Ovary Rt ovary: ??Visualized, normal appearanc e Rt ovary morphology: ?? Normal physiolog ic changes Rt ovary D1 ?3.0 cm Rt ovary D2 ?1.5 cm Rt ovary D3 ?1.8 cm Rt ovary mean ??2.1 cm Rt ovary vol ?? 4.1 cm cubed Rt ovary other findings: ?? AFC = 7 Left Ovary Lt ovary: ??Visualized, normal appearanc e Lt ovary morphology: ?? normal physiolog ic changes Lt ovary D1 ?2.6 cm Lt ovary D2 ?2.5 cm Lt ovary D3 ?2.0 cm Lt ovary mean ??2.3 cm Lt ovary vol ?? 6.5 cm cubed Lt ovary other findings: ?? AFC = 9 Cul de Sac Appears normal. No free fluid visualized . Method ======== Saline sonohysterogram Probe #8. View: G ood view. Impression Sonohyst T HyCoSy - [id number] + [id number]; Transvaginal 3D - 65079 Normal uterus, trilaminar endometrium. SHG: Coronal rendered image of the uteru s shows a normal uterine cavity. HyCoSy showed preferential flow out the left tube; able to see a small flash on the right with right hip raised, then free fluid next to the right ovary. Normal ovaries with combined AFC of 16. I have personally reviewed and adjusted the images for the 3D rendering on an independent workstation prior to interpretation. Follow-up with Dr. Crouch. Comment ========= Ultrasound findings discussed w/patient. Z31.41 encounter for fertility testing. DATE OF SERVICE: 01/24/2022 Procedure Note Montrell Crouch MD - 01/24/2022 Indication Fertility Testing. Assessment LMP on 01/18/2022. Day of cycle: 7. Uterus ======= Uterus: Appears normal Uterus position: Anteverted Uterine malformations: None Myometrium: Appears normal Endometrium: Trilaminar endometrium Cervix details: Normal appearance Uterus long 10.3 cm Uterus ap 4.1 cm Uterus tr 5.0 cm Endometrial thickness, total 7.3 mm Fibroids: No fibroids identified Polyps: No polyps identified Procedure SIS procedure: risks,benefits and proced ure reviewed with the patient. Consent signed. Speculum exam,cervix washed X 3 with betadine. Catheter placed and saline instilled under US observation. Patient tolerated procedure. HyCoSy shows normal cavity with no epith elial or intracavitary lesions and bilateral flow of [...] de Sac Appears normal. No free fluid visualized . Method ======== Saline sonohysterogram Probe #8. View: G ood view. Impression Sonohyst T HyCoSy - [id number] + 96375; Transvaginal 3D - 47184 Normal uterus, trilaminar endometrium. SHG: Coronal rendered image of the uteru s shows a normal uterine cavity. HyCoSy showed preferential flow out the left tube; able to see a small flash on the right with right hip raised, then free fluid next to the right ovary. Normal ovaries with combined AFC of 16. I have personally reviewed and adjusted the images for the 3D rendering on an independent workstation prior to interpretation. Follow-up with Dr. Crouch. Comment ========= Ultrasound findings discussed w/patient. Z31.41 encounter for fertility testing. DATE OF SERVICE: 01/24/2022 Performing Organization Address City/State/ZIP Code Phon e Number [facility] documented in this encounter Visit Diagnoses Diagnosis Fertility testing - Primary Encounter for preconception consultation Other procreative management counseling and advice Fertility testing Encounter for preconception consultation Other procreative management counseling and advice documented in this encounter Discontinued Medications Medication Sig Discontinue Reason Start Date End Date DESOGESTREL-ETHINYL Take by mouth Error 022 ESTRADIOL (ORTHO-CEPT, daily. 28, ORAL) hydrocodone-acetaminophen Take 1 Tab by mouth Error 01/21/20 12 01/10/2022 (LORTAB;VICODIN) 5-500 mg every 4 hours. per tablet documented as of this encounter Historical Medications This list may reflect changes made after this encounter. Medication Sig Dispensed Refills Start Date End Date propranolol HCl Take 60 mg by mouth. 0 (PROPRANOLOL ORAL) MIRTAZAPINE ORAL Take 30 mg by mouth. 0 added in this encounter Care Teams Cardroom Supervisor Relationship Specialty Start Date End Date Cindi Espinoza MD PCP - General 01/20/12 [address] [place] [address] documented as of this encounter
--- OUTSIDE RECORDS SUMMARY | 2022-05-09 02:12 | XMS_ITS | Encounter Summary ---
:1980 Author Organization [facility] Address [address] [place] [address] Care Team Providers Name Role Phone Cindi Espinoza MD Primary Care Provider Reason for Visit Reason Comments Labs Only Encounter Details Date Type Department Care Team Description 01/24/2022 Nurse Only [facility] Nurse, Obgyn Encounter for Women's Services - Injections investiga tion and [facility] testing for procreative [address] management (Primary Dx) [place], [place] [id number] Social History Tobacco Use Types Packs/Day Years [...] occasion? Comment: occassional ~4 drinks per year 2 Sex Assigned at Date Recorded Not on file documented as of this encounter Progress Notes Albino Sweeney LPN - 01/24/2022 1500 EDT Blood drawn via right AC using a butterfly needle. Pt tolerated procedure well. Pressure and 2x2 applied, secured with paper tape. 2 SST tube(s) sent to lab per order(s). I was told to perform blood draw by Sheryl Noriega MD I was supervised by Sheryl Noriega MD (Attending) who was present and immediately available in theoffice suite ALBINO SWEENEY LPN 01/24/2022 14:09 documented in this encounter Plan of Treatment Not on filedocumented as of this encounter Visit Diagnoses Diagnosis Encounter for investigation and testing for procreative management - Primary documented in this encounter Care Teams Anesthesiologist Assistant Certified Relationship Specialty Start Date End Date Cindi Espinoza MD PCP - General 01/20/12 [address] [place] [address] documented as of this encounter
--- OUTSIDE RECORDS SUMMARY | 2022-05-09 02:12 | XMS_ITS | Encounter Summary ---
:1980 Author Organization [facility] Address [address] [place] [address] Care Team Providers Name Role Phone Unavailable Primary Care Provider Unavailable Encounter Details Date Type Department Care Team Description 10/20/2007 Hospital Encounter [facility] - Daily, Kailey Dacosta, [facility] CREATIVE TECHNOLOGIST [address] [place] [address] [place], [place] [phone] (Wo rk) Social History Tobacco Use Types Packs/Day Years Used Date Never Assessed Sex Assigned at Date Recorded Not on file documented as of this encounter Discharge Disposition Disposition Code Departure Means Destination Auto Discharge documented in this encounter Plan of Treatment Not on filedocumented as of this encounter Visit Diagnoses Not on filedocumented in this encounter
--- OUTSIDE RECORDS SUMMARY | 2022-05-09 02:12 | XMS_ITS | Encounter Summary ---
:1980 Author Organization [facility] Address [address] [place] [address] Care Team Providers Name Role Phone Cindi Espinoza MD Primary Care Provider Encounter Details Date Type Department Care Team Description 12/26/2020 Lab Requisition [facility] Outr Resulting Lab, Pathology & Laboratory Provider [facility] [address] [place] [address] Social History Tobacco Use Types Packs/Day Years Used Date Never Assessed Sex Assigned at Date Recorded Not on file documented as of this encounter Plan of Treatment Not on filedocumented as of this encounter Procedures Procedure Name Priority Date/Time Associated Comments Diagnosis QUANTIFERON TB GOLD Routine 12/25/2020 14:20 Resu lts for this PLUS EDT procedure are i n the results section. documented in this encounter Results QUANTIFERON TB GOLD PLUS (12/25/2020 14:20 EDT) Quantiferon Negative Negative [facility] MEDICAL Interpretation Comment: [facility] No interferon-gamma response to M. tuberculosis antigens was detected. ??Infection with M. tuberculosis is unlikely. A single negative result does not exclude infection with M. tuberculosis. ??In patien SERVICES ts at high risk for M. tuber culosis infection, a second test should be considered in accordance with the 2017 ATS/IDSA/CDC Clinical Practice Guidelines for Diagnosis of Tuberculosis in Adults and Childr en. [Omar TAMEZ et. al. Clin. Infect. Dis. 2017:64 ( 2) ??: 111-115]. Results were obtained with the Qiagen QuantiFERON TB G old Plus IRIS. TB1 Ag minus Nil 0.00 IU/ml [facility] TB2 Ag minus Nil 0.00 IU/mL [facility] Specimen Blood - Venous blood (substance) Narrative [facility] - 12/28/2020 14:33 EDT Results were obtained with the Qiagen Qu antiFERON-TB Gold Plus IRIS. Performing Organization Address City/State/ZIP Code Phon e Number [facility] [address] [place] [address] SERVICES documented in this encounter Visit Diagnoses Not on filedocumented in this encounter Care Teams Ground Crew Supervisor Relationship Specialty Start Date End Date Cindi Espinoza MD PCP - General 01/20/12 [address] [place] [address] documented as of this encounter
--- OUTSIDE RECORDS SUMMARY | 2022-05-09 02:12 | XMS_ITS | Encounter Summary ---
:1980 Author Organization [facility] Address [address] [place] [address] Care Team Providers Name Role Phone Cindi Espinoza MD Primary Care Provider Encounter Details Date Type Department Care Team Description 08/31/[address] [facility] Unknown, Provider, Pathology & Laboratory [facility] [address] [place] [address] Social History Tobacco Use Types Packs/Day Years Used Date Never Assessed Sex Assigned at Date Recorded Not on file documented as of this encounter Plan of Treatment Not on filedocumented as of this encounter Procedures Procedure Name Priority Date/Time Associated Diagnosis Comme nts HEPATITIS B SURFACE Routine 08/31/2019 11:41 Resu lts for this ANTIGEN EST procedure are i n the results section. documented in this encounter Results HEPATITIS B SURFACE ANTIGEN (08/31/2019 11:41 EST) Pathologist Sig nature Hep B Surface Ag Negative Negative [facility] Specimen Blood - Venous blood (substance) Performing Organization Address City/State/ZIP Code Phon e Number [facility] [address] [place] [address] SERVICES documented in this encounter Visit Diagnoses Not on filedocumented in this encounter Care Teams Cutting Room Supervisor Relationship Specialty Start Date End Date Cindi Espinoza MD PCP - General 01/20/12 [address] [place] [address] documented as of this encounter
--- OUTSIDE RECORDS SUMMARY | 2022-05-09 02:12 | XMS_ITS | Encounter Summary ---
:1980 Author Organization [facility] Address [address] [place] [address] Care Team Providers Name Role Phone Unavailable Primary Care Provider Unavailable Encounter Details Date Type Department Care Team Description 07/03/2010 Results Only [facility] Ralph Espinoza MD Laboratory Services - [facility] [address] [place] [address] 0 [facility] [place] [address] [phone] Social History Tobacco Use Types Packs/Day Years Used Date Never Assessed Sex Assigned at Date Recorded Not on file documented as of this encounter Plan of Treatment Not on filedocumented as of this encounter Procedures Procedure Name Priority Date/Time Associated Diagnosis Comme nts CYTOPATHOLOGY Routine 07/03/2010 0:00 EDT Results for this procedure are i n the results section . documented in this encounter Results CYTOPATHOLOGY (07/03/2010 0:00 EDT) Pathology Report: CYTOPATHOLOGY REPORT ? [facility] ? LAB Reports generated via electr onic interface contain original data; ? however they are lacking the format of the original report. ? Caution should be taken when reading/interpreting unformatted reports. ? Name: ? SIDNEY SANON ? Accession #: ? [id number] ? : ? 1980 (Age: 29) ??F ?Collect Date: ? 07/03/2010 ? Location: ? [facility] ? Receive Date: ? 07/09/2010 ? Provider: ?BART MILLERS SER MD ? Copy to: ? Specimen/Source: ? Pap Test, Cervix/Endocervix, ThinPrep Imaging System ? with manual evaluation ? Last Menstrual Period: ? 06/29/2010 ? Other: ? 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 HPVA - HPV testing requested if ASC-US on the current ThinPrep Pap test. ? SPECIMEN ADEQUACY ? Satisfactory for Eval uation ? - transformation zone compon ent present ? GENERAL CATEGORIZATION ? Negative for Intraepi thelial Lesion or Malignancy ? Document reviewed and electr onically signed by: ? Erna Farrar, S CT(ASCP) ? Report Date: ??10/06/ 2010 09:53 ? End of Report ? Specimen Performing Organization Address City/State/ZIP Code Phon e Number [facility] [address] [place] [address] SERVICES [facility] [address] [place] [address] documented in this encounter Visit Diagnoses Not on filedocumented in this encounter
--- OUTSIDE RECORDS SUMMARY | 2022-05-09 02:12 | XMS_ITS | Encounter Summary ---
:1980 Author Organization [facility] Address [address] [place] [address] Care Team Providers Name Role Phone Unavailable Primary Care Provider Unavailable Encounter Details Date Type Department Care Team Description 01/18/2003 Results Only [facility] - Bienvenido Maria MD Maple conversion [address] [place] [address] [place] [address] Social History Tobacco Use Types Packs/Day Years Used Date Never Assessed Sex Assigned at Date Recorded Not on file documented as of this encounter Plan of Treatment Not on filedocumented as of this encounter Procedures Procedure Name Priority Date/Time Associated Diagnosis Comme [facility] SURGICAL PATHOLOGY Routine 01/18/2003 0:00 EDT Re sults for this procedure are i n the results section. documented in this encounter Results SURGICAL PATHOLOGY (01/18/2003 0:00 EDT) Pathology Report: SURGICAL PATHOLOGY REPORT TODD DAVID Reports generated via electronic interface contain raina ginal data; LAB however they are lacking the format of the original re port. Caution should be taken when reading/interpreting unfo rmatted reports. Name: ? SIDNEY SANON ? Accession #: ? [id number] ? : ? 1980 (Age: 22) ??F ? Collect Date: ? 01/18/2003 ? Location: ? [facility] ? Receive Date: ? 003 ? Provider: AMY MARIA MD Copy to: MOISES BOLANOS NP ? Final Pathologic Diagnosis: ? Cervix, 12:00, biopsy: 1. ?Endo- and e ctocervical mucosa with reactive squamous epithelial changes. 2. ?Negative for dysplasia. Document reviewed and electronically signed by: Reji [facility] Report ??Date: 01/20/2003 15:39 By the signature above, the attending physician certif ies that he/she has personally conducted a gross and/or microscopic examin ation of the described specimens and rendered or confirmed the above diagnosi s. Specimen(s) Received: ? Cx bx @ 12:00 Clinical History: ? 303 Pap; ASCUS (+) HPV; LMP: 2 wks ago Gross Description: ? Received in formalin labelled Sanon and cx bx at 12 o' clock is a wedge-shaped tissue lined by finch-crow fo manjula hyperemic mucosa measuring 0.5 x 0.3 x 0.3 cm. ??It is submitted intact in one cassette . ??(Dr. Rodriguez)/[facility] End of Report Specimen Performing Organization Address City/State/ZIP Code Phon e Number [facility] [address] [place] [address] SERVICES [facility] [address] [place] [address] documented in this encounter Visit Diagnoses Not on filedocumented in this encounter
--- OUTSIDE RECORDS SUMMARY | 2022-05-09 02:12 | XMS_ITS | Encounter Summary ---
:1980 Author Organization [facility] Address [address] [place] [address] Care Team Providers Name Role Phone Cindi Espinoza MD Primary Care Provider Encounter Details Date Type Department Care Team Description 08/31/2019 Lab Requisition [facility] Unknown, Provider, Pathology & Laboratory [facility] [address] [place] [address] [place] [address] Social History Tobacco Use Types Packs/Day Years Used Date Never Assessed Sex Assigned at Date Recorded Not on file documented as of this encounter Plan of Treatment Not on filedocumented as of this encounter Procedures Procedure Name Priority Date/Time Associated Diagnosis Comme nts HEPATITIS C AB W Routine 08/31/2019 11:41 Results for this REFLEX TO HCV RNA EST procedure are in BY PCR the results section. HEPATITIS B PROFILE Routine 08/31/2019 11:41 Resu lts for this EST procedure are i n the results section. documented in this encounter Results HEPATITIS C AB W REFLEX TO HCV RNA BY PCR (08/31/2019 11:41 EST) Pathologist Sig nature Hep C Antibody Negative Negative [facility] SERVICES Specimen Blood - Venous blood (substance) Performing Organization Address City/State/ZIP Code Phon e Number [facility] [address] [place] [address] SERVICES HEPATITIS B PROFILE (08/31/2019 11:41 EST) Hep B Surface Ag Negative Negative [facility] SERVICES Hep B Surface Ab, 226.8 mIU/mL [facility] Quantitative Comment: LABORATORY Reference Range for Hep B Surface Ab, Quant: SERVICES Positive: >= 10.0 mIU/mL Negative: ??< 10.0 mIU/mL Patient is presumed to be immune to infection with Hep atitis B Virus. Reference Range for Hep B Surface Ab, Quant: Positive: >= 10.0 mIU/mL Negative: ??< 10.0 mIU/mL Hep B Surface Ab, Positive See Note [facility] Qualitative Comment: LABORATORY SERVICES Reference Range for Hep B Surface Ab, Qual: Unvaccinated: ??Negative Vaccinated: ??Positive Hepatitis B Core Ab, Negative Negative [facility] Total LABORATORY SERVICES Specimen Blood - Venous blood (substance) Performing Organization Address City/State/ZIP Code Phon e Number [facility] [address] [place] [address] SERVICES documented in this encounter Visit Diagnoses Not on filedocumented in this encounter Care Teams Armoured Corps Officer Relationship Specialty Start Date End Date Cindi Espinoza MD PCP - General 01/20/12 [address] [place] [address] documented as of this encounter
--- OUTSIDE RECORDS SUMMARY | 2022-05-09 02:12 | XMS_ITS | Encounter Summary ---
:1980 Author Organization [facility] Address [address] [place] [address] Care Team Providers Name Role Phone Cindi Espinoza MD Primary Care Provider Reason for Referral PATIENT PORTAL REPRESENTATIVE (Routine/Next Available) - Specialty Report Received Specialty Diagnoses / Procedures Referred By Contact Refer red To Contact Diagnoses Fertility testing Syeda Leger DO [facility] [employer] SYSTEMS PROFESSOR/REGINALD Procedures US HYSTEROSONOGRAPHY [address] [address] Referral ID Status Reason Start Date Expiration Date Visits V isits Requested Authorized [id number] Specialty 01/10/2022 1 1 Report Received Reason for Visit PATIENT PORTAL REPRESENTATIVE (Routine/Next Available) - Specialty Report Received Specialty Diagnoses / Procedures Referred By Contact Refer red To Contact Diagnoses Fertility testing Syeda Leger DO [facility] [employer]FORMATION SYSTEMS PROFESSOR/REGINALD Procedures US HYSTEROSONOGRAPHY [address] [phone] Referral ID Status Reason Start Date Expiration Date Visits V isits Requested Authorized [id number] Specialty 01/10/2022 1 1 Report Received Encounter Details Date Type Department Care Team Description 01/24/2022 Hospital Encounter [facility] Waldemar tility testing; Women's Services - Encounter for preconception consultation [address] [address] Social History Tobacco Use Types Packs/Day Years [...] on file documented as of this encounter Medications at Time of Discharge Medication Sig Dispensed Refills Start Date End Date Yljttjoatgs-Mhwxdxhfc-Jpd Take by mouth 0 C-Mn daily. (GLUCOSAMINE-CHONDROITIN COMPLX) Cap MIRTAZAPINE ORAL Take 30 mg by 0 mouth. Multivitamins with Minerals Take 1 Tab by mouth 0 Tab daily. propranolol HCl (PROPRANOLOL Take 60 mg by 0 ORAL) mouth. documented as of this encounter Discharge Disposition Disposition Code Departure Means Destination Home or Self Care documented in this encounter Miscellaneous Notes Result QuickNote - Syeda Leger DO - 01/24/2022 1305 EDT Following [employer] message sent to patient: Arcenio Talbert, I wanted to let you know that your AMH level has come back and looks great! Your vitamin D level wasalso normal. It looks like you have already had your saline ultrasound. The last step is for your partner to have a semen analysis and then set up a follow-up with Dr. Noriega to go over next steps. Best, Dr. Syeda Cohen. DO [facility] 01/31/2022 documented in this encounter Plan of Treatment Not on filedocumented as of this encounter Procedures Procedure Name Priority Date/Time Associated Diagnosis Comme nts ANTIMULLERIAN HORMONE Routine 01/24/2022 14:01 Fertility testi ng Results for this ([facility]) REPROSOURCE EDT procedure are in the results section. VITAMIN D (25,[place]) Routine 01/24/2022 14:01 Encounter for Resul ts for this EDT preconception procedure are in consultation the results section. US HYSTEROSONOGRAPHY Routine 01/24/2022 13:24 Fertility testin g Results for this EDT procedure are i n the results section. documented in this encounter Results VITAMIN D (25,[place]) (01/24/2022 14:01 EDT) 25OH Vitamin D 38 30 - 100 [facility] Comment: ng/mL [facility] Vitamin D 25,[place] Interpretive Ranges: SERV ICES Deficiency: ??<10.0 ng/mL Insufficiency: ??10.0 - 30.0 ng/mL Sufficiency: ??30.0 - 100.0 ng/mL Toxicity: ??>100.0 ng/mL Specimen Blood - Venous blood (substance) Performing Organization Address City/State/ZIP Code Phon e Number [facility] [address] [place] [address] SERVICES ANTIMULLERIAN HORMONE ([facility]) REPROSOURCE (01/24/2022 14:01 EDT) Pathologist Sig nature Antimullerian Hormone Comment: See REPROSOURCE ([facility]) Result scanned/suppleme ntary report. Specimen Blood - Venous blood (substance) Narrative This result has an attachment that is no t available. Performing Organization Address City/State/ZIP Code Phon e Number [facility] [id number] [place] [address] [facility] US HYSTEROSONOGRAPHY (01/24/2022 13:24 EDT) Anatomical Region Laterality Modality Ultrasound Specimen Narrative [facility] - 01/24/2022 14:44 [...] ood view. Impression Sonohyst T HyCoSy - 22984 + 18778; Transvaginal 3D - 98057 Normal uterus, trilaminar endometrium. SHG: Coronal rendered [...] workstation prior to interpretation. Follow-up with Dr. Noriega. Comment ========= Ultrasound findings discussed w/patient. Z31.41 encounter for fertility testing. DATE OF SERVICE: 01/24/2022 Procedure Note Sheryl Noriega MD - 01/24/2022 Indication Fertility Testing. Assessment [...] ood view. Impression Sonohyst T HyCoSy - 37284 + 65053; Transvaginal 3D - 71755 Normal uterus, trilaminar endometrium. SHG: Coronal rendered [...] workstation prior to interpretation. Follow-up with Dr. Noriega. Comment ========= Ultrasound findings discussed w/patient. Z31.41 encounter for fertility testing. DATE OF SERVICE: 01/24/2022 Performing Organization Address City/State/ZIP Code Phon e Number [facility] documented in this encounter Visit Diagnoses Diagnosis Fertility testing Encounter for preconception consultation Other procreative management counseling and advice documented in this encounter Care Teams Night Baker Relationship Specialty Start Date End Date Cindi Espinoza MD PCP - General 01/20/12 [address] [place] [address] documented as of this encounter
--- OUTSIDE RECORDS SUMMARY | 2022-05-09 02:12 | XMS_ITS | Encounter Summary ---
:1980 Author Organization [facility] Address [address] [place] [address] Care Team Providers Name Role Phone Cindi Espinoza MD Primary Care Provider Encounter Details Date Type Department Care Team Description 12/13/2021 Lab Requisition [facility] Outr Resulting Lab, Pathology & Laboratory Provider [facility] [address] [place] [id number] Social History Tobacco Use Types Packs/Day Years Used Date Never Assessed Sex Assigned at Date Recorded Not on file documented as of this encounter Plan of Treatment Not on filedocumented as of this encounter Procedures Procedure Name Priority Date/Time Associated Diagnosis Comme nts PROLACTIN Routine 12/13/2021 12:34 Results for this EST procedure are i n the results section. ESTRADIOL, ADULTS Routine 12/13/2021 12:34 Result s for this EST procedure are i n the results section. FSH Routine 12/13/2021 12:34 Results for this EST procedure are i n the results section. documented in this encounter Results FSH (12/13/2021 12:34 EST) Pathologist Sig nature FSH 3.3 See Note mIU/mL [facility] Specimen Blood - Venous blood (substance) Narrative [facility] - 12/16/2021 10:47 EST NOTE: Female FSH Reference Ranges (>= 13 Menst ruating): PHYSIOLOGICAL STATUS ? REFE RENCE RANGE ? ---- Follicular (-12 to -4 days): ?? 2.5 - 1 0.2 mIU/mL Midcycle (-3 to +2 days): ?3.4 - 33.4 mIU/mL Luteal (+4 to +12 days): ? 1.5 - 9.1 mIU/mL Postmenopausal: ? 23.0 - 116.3 mIU/mL Reference Ranges for female patients <13 years old have not been established. Performing Organization Address City/[facility] Phon e Number [facility] [address] [place] [address] SERVICES PROLACTIN (12/13/2021 12:34 EST) Prolactin 17.6 See Table [facility] Comment: ng/mL LABORATORY SERVICES NOTE: Female Reference Ranges: PHYSIOLOGICAL STATUS ?EXPECTED R PHILLY ? ---- Postmenopausal ?1.8 - 2 0.3 ng/mL ?9.7 - 208.5 ng/mL Non- ?2.8 - 29.2 ng/mL Reference Ranges for Prolact in in female patients <18 years old have not been established. Specimen Blood - Venous blood (substance) Performing Organization Address [facility] Phon e Number [facility] [address] [place] [phone] SERVICES ESTRADIOL, ADULTS (12/13/2021 12:34 EST) Estradiol 46 See Note pg/mL [facility] Comment: LABORATORY SERVICES NOTE: FEMALE REFERENCE RANGES: MENSTRUATING ? By cycle day relative to LH peak Follicular ?(-12 to -4 days) ??20-144 pg/mL Midcycle ?(-3 to +2 days) ?? 64-357 pg/mL Luteal ?(+4 t0 +12 days) ??56-214 pg/mL POSTMENOPAUSAL ?<32 pg/mL *Cross reactivity with Fulve strant could lead to a falsely elevated estradiol result in patients treated with this drug. Specimen Blood - Venous blood (substance) Performing Organization Address City/State/ZIP Code Phon e Number [facility] [address] [place] [address] SERVICES documented in this encounter Visit Diagnoses Not on filedocumented in this encounter Care Teams Ride Attendant Relationship Specialty Start Date End Date Cindi Espinoza MD PCP - General 01/20/12 [address] [place], [place] [address] documented as of this encounter
--- OUTSIDE RECORDS SUMMARY | 2022-05-09 02:12 | XMS_ITS | Encounter Summary ---
:1980 Author Organization [facility] Address [address] [place] [address] Care Team Providers Name Role Phone Cindi Espinoza MD Primary Care Provider Encounter Details Date Type Department Care Team Description 08/31/2019 Lab Requisition [facility] Unknown, Provider, Pathology & Laboratory [facility] [address] [place] [address] [place] [address] Social History Tobacco Use Types Packs/Day Years Used Date Never Assessed Sex Assigned at Date Recorded Not on file documented as of this encounter Plan of Treatment Not on filedocumented as of this encounter Procedures Procedure Name Priority Date/Time Associated Diagnosis Comme nts ANTI NUCLEAR AB Routine 08/31/2019 11:41 Results for this (HEMANTH), IFA EST procedure are i n the results section. documented in this encounter Results ANTI NUCLEAR AB (HEMANTH), IFA (08/31/2019 11:41 EST) Pathologist Sig nature HEMANTH Interpretation Negative Negative [facility] Specimen Blood - Venous blood (substance) Narrative [facility] - 09/01/2019 15:45 EST Results were obtained with the INOVA NOV A Lite HEp-2 HEMANTH Kit by indirect immunofluorescence. Performing Organization Address City/State/ZIP Code Phon e Number [facility] [address] [place] [address] SERVICES documented in this encounter Visit Diagnoses Not on filedocumented in this encounter Care Teams Geriatrician Relationship Specialty Start Date End Date Cindi Espinoza MD PCP - General 01/20/12 [address] [place] [address] documented as of this encounter
--- OUTSIDE RECORDS SUMMARY | 2022-05-09 02:12 | XMS_ITS | Encounter Summary ---
:1980 Author Organization [facility] Address [address] [place] [address] Care Team Providers Name Role Phone Cindi Espinoza MD Primary Care Provider Encounter Details Date Type Department Care Team Description 11/09/2014 Results Only [facility] Kirstie Pena, SPEECH CORRECTION ASSISTANT [phone] [facility] [place] [address] (Wo rk) Social History Tobacco Use Types Packs/Day Years Used Date Never Assessed Sex Assigned at Date Recorded Not on file documented as of this encounter Plan of Treatment Not on filedocumented as of this encounter Procedures Procedure Name Priority Date/Time Associated Diagnosis Comme nts PAP TEST- RESULT Routine 11/09/2014 0:00 EST Resu lts for this ONLY procedure are i n the results section. documented in this encounter Results PAP TEST- RESULT ONLY (11/09/2014 0:00 EST) Pathology Report: CYTOPATHOLOGY REPORT [facility] Reports generated via electronic interface contain raina ginal data; SERVICES however they are lacking the format of the original re port. Caution should be taken when reading/interpreting unfo rmatted reports. Name: ? SIDNEY SANON ? Accession #: ? [id number] ? : ? 1980 (Age: 34) ??F ?Collect Da te: ? 11/09/2014 ? Location: ? [facility] ? Receive Date: ? 015 ? Provider: KIRSTIE PENA SPEECH CORRECTION ASSISTANT Copy to: ? Final Report SPECIMEN ADEQUACY ? Satisfactory for Evaluation - transformation zone component present GENERAL CATEGORIZATION ? Negative for Intraepithelial Lesion or Malignan cy INTERPRETATION ? Reactive cellular jose luis nges associated with inflammation present (includes repair). Last Menstrual Period: 10/23/14 Hormonal/Contraceptive status: Yes: Ortho-cept, edward heath Previous Gynecologic Pathology: HPV: + Hx Specimen/Source: ??Pap Test, Cervix/Endocervix, ThinPr ep Imaging System with manual evaluation Document reviewed and electronically signed by: ? TOM KING MD ? Report ??Date: 11/22/2014 16:06 HPV with Pap Test ? Date Ordered: ? 11/23/2014 ? Status: ?? Signed Out ?Date Complete: ? 11/24/2014 ? By: ??S ystem Interface ? Date Reported: ? 11/24/2014 ? Interpretation RESULT: Negative for HPV. No E6 or E7 mRNA is detected from HPV types 16,18,31,3 3,35, 39,45,51,52,56,58,59,66, and 68 by boiler reliner media carroll amplification. Comments Document reviewed and electronically signed by: ? System Interface ? Report date: 11/24/2014 By the signature above, the attending physician certif ies that he/she has personally conducted a gross and/or microscopic examin ation of the described specimens and rendered or confirmed the above diagnosi s. End of Report Specimen Performing Organization Address City/State/ZIP Code Phon e Number [facility] [address] [place] [address] SERVICES documented in this encounter Visit Diagnoses Not on filedocumented in this encounter Care Teams Scrap Drop Operator Relationship Specialty Start Date End Date Cindi Espinoza MD PCP - General 01/20/12 [address] [place], [place] [id number] documented as of this encounter
--- OUTSIDE RECORDS SUMMARY | 2022-05-09 02:12 | XMS_ITS | Encounter Summary ---
:1980 Author Organization [facility] Address [address] [place] [address] Care Team Providers Name Role Phone Unknown, Provider Primary Care Provider None, Provider Primary Care Provider Unavailable Cindi Espinoza MD Primary Care Provider Encounter Details Date Type Department Care Team Description 04/28/2008 Hospital Encounter [facility] Lloyd Dotson MD [place] Unknown, Provider, [address] [place] [address] Social History Tobacco Use Types Packs/Day Years Used Date Never Assessed Sex Assigned at Date Recorded Not on file documented as of this encounter Plan of Treatment Not on filedocumented as of this encounter Visit Diagnoses Not on filedocumented in this encounter Care Teams Display Associate Relationship Specialty Start Date End Date Unknown, Provider, PCP - General 07/12/10 07/14/10 None, Provider PCP - General 07/15/10 01/19/12 Cindi Espinoza MD PCP - General 01/20/12 [address] [place] [address] documented as of this encounter
--- OUTSIDE RECORDS SUMMARY | 2022-05-09 02:12 | XMS_ITS | Encounter Summary ---
:1980 Author Organization [facility] Address [address] [place] [address] Care Team Providers Name Role Phone Unknown, Provider Primary Care Provider None, Provider Primary Care Provider Unavailable Cindi Espinoza MD Primary Care Provider Encounter Details Date Type Department Care Team Description 10/29/2007 Hospital Encounter [facility] - Lloyd Christopher MD [place] [address] [place] [address] Social History Tobacco Use Types Packs/Day Years Used Date Never Assessed Sex Assigned at Date Recorded Not on file documented as of this encounter Plan of Treatment Not on filedocumented as of this encounter Visit Diagnoses Not on filedocumented in this encounter Care Teams Corporate Account Executive Relationship Specialty Start Date End Date Unknown, Provider, PCP - General 07/12/10 07/14/10 None, Provider PCP - General 07/15/10 01/19/12 Cindi Espinoza MD PCP - General 01/20/12 [address] [place], [place] [address] documented as of this encounter
--- OUTSIDE RECORDS SUMMARY | 2022-05-09 02:12 | XMS_ITS | Encounter Summary ---
:1980 Author Organization [facility] Address [address] [place] [address] Care Team Providers Name Role Phone Unknown, Provider Primary Care Provider None, Provider Primary Care Provider Unavailable Cindi Espinoza MD Primary Care Provider Encounter Details Date Type Department Care Team Description 12/29/2007 Hospital Encounter [facility] - Omaira Coyle MD [address] [facility] [address] [place] [address] [facility] Unknown, ProviderMD [address] [place] [id number] Social History Tobacco Use Types Packs/Day Years Used Date Never Assessed Sex Assigned at Date Recorded Not on file documented as of this encounter Plan of Treatment Not on filedocumented as of this encounter Visit Diagnoses Not on filedocumented in this encounter Care Teams Printer Slotter Feeder Relationship Specialty Start Date End Date Unknown, Provider, PCP - General 07/12/10 07/14/10 None, Provider PCP - General 07/15/10 01/19/12 Cindi Espinoza MD PCP - General 01/20/12 [address] [place], [place] [id number] documented as of this encounter
[2022-05-09 22:18] LABS: D-Dimer (UVM) <200 ng/mL DDU (<=230)
[2022-05-09 22:19] LABS: PTT (UVM) 33 secs (26-37)
[2022-05-10 18:50] LABS: Beta 2 GP1 Ab IgG <9.4 U/mL; Beta 2 GP1 Ab IgM <9.4 U/mL
[2022-05-12 09:57] LABS: Antithrombin 3, Funct. 105 % (85-125); Factor 8 Assay 136 % (50-150)
[2022-05-12 14:32] LABS: Dilute Russell Viper Venom 34.9 secs (25.2-42.2); LA Cascade Summary (See Note); Silica Clotting Time 42.4 secs (30.2-48.4)
[2022-05-13 13:11] LABS: Phospholipid Ab, IgG <9.4 GPL; Phospholipid Ab, IgM 18.5 MPL
[2022-05-14 10:29] LABS: Protein C, Functional 130 % (71-199); Protein S, Functional 97 % (64-147)
== END 2022-05-09 02:00 | disposition home or self-care (01) ==
LOC: LBO 01:59
PROVIDERS: PCP Nurse Practitioner; Visit Provider Obstetrics & Gynecology
DX: N96 Recurrent pregnancy loss (principal)
CPT/HCPCS: 36415; 81241; 82784; 85300; 85303; 85306; 85610; 85613; 85730; 85732; 85240; 85379

== ENCOUNTER 2022-07-28 03:28 | Outpatient (CLI) | payer OTHER, SELFPAY ==
[2022-07-28 12:45] LABS: HCG Quant, Pregnancy 2 mIU/mL (1-3)
[2022-07-28 17:44] LABS: Progesterone 10.9 ng/mL (See Table)
[2022-07-30 18:22] LABS: Phospholipid Ab, IgG <9.4 GPL; Phospholipid Ab, IgM 11.8 MPL
== END 2022-07-28 03:29 | disposition home or self-care (01) ==
LOC: LOS 03:28
PROVIDERS: PCP Nurse Practitioner; Visit Provider Obstetrics & Gynecology Reproductive Endocrinology
DX: N91.2 Amenorrhea, unspecified (principal); N96 Recurrent pregnancy loss
CPT/HCPCS: 36415; 86147; 84144; 84702

== ENCOUNTER 2022-08-11 03:05 | Outpatient (CLI) | payer OTHER, SELFPAY ==
[2022-08-11 10:46] LABS: Calculated LDL 102 mg/dL (<100); Cholesterol 183 mg/dL (<200); HDL Cholesterol 53 mg/dL (40-60); TSH (W/Ref FT4) 2.26 uIU/mL (0.36-3.74); Triglyceride 140 mg/dL (<150)
[2022-08-13 20:12] LABS: Phospholipid Ab, IgG <9.4 GPL; Phospholipid Ab, IgM <9.4 MPL
== END 2022-08-11 03:06 | disposition home or self-care (01) ==
LOC: LBO 03:05
PROVIDERS: Obstetrics & Gynecology; PCP Nurse Practitioner; Visit Provider Nurse Practitioner
DX: E03.9 Hypothyroidism, unspecified (principal); Z13.220 Encounter for screening for lipoid disorders
CPT/HCPCS: 36415; 80061; 86147; 84443

== ENCOUNTER 2022-10-08 02:39 | Outpatient (CLI) | payer SELFPAY ==
[2022-10-08 11:29] LABS: HCG Quant, Pregnancy < 1 mIU/mL (1-3)
== END 2022-10-08 02:40 | disposition home or self-care (01) ==
LOC: LBO 02:39
PROVIDERS: PCP Nurse Practitioner; Visit Provider Obstetrics & Gynecology Reproductive Endocrinology
DX: Z32.00 Encounter for pregnancy test, result unknown (principal)
CPT/HCPCS: 36415; 84702

== ENCOUNTER 2022-11-10 02:54 | Outpatient (CLI) | payer OTHER, SELFPAY ==
[2022-11-10 11:34] LABS: Abs Immature Grans 0.02 10^3/uL (0.0-0.06); Absolute Basophil Count 0.09 10^3/uL (0.0-0.2); Absolute Lymphocyte Count 2.01 10^3/uL (1.2-3.4); Absolute Monocyte Count 0.43 10^3/uL (0.1-0.8); Absolute Neutrophil Count 4.39 10^3/uL (1.2-6.7); Basophils % 1.3; Eosinophils % 1.4; HCT 40.7 % (36.0-46.0); Immature Grans % 0.3; Lymphocytes % 28.6; MCH 28.7 pg (27.0-33.0); MCHC 34.4 % (32.0-36.0); MCV 84 fL (80-95); MPV 9.4 fL (8.0-11.0); Monocytes % 6.1; Neutrophils % 62.3; Platelet Count 249 10^3/uL (130-400); RBC 4.87 10^6/uL (3.93-5.22); RDW 11.9 % (11.7-14.6); RDW-SD 36.6 fL; WBC 7.04 10^3/uL (4.4-10.8)
[2022-11-10 12:38] LABS: ALT 19 U/L (14-59); AST 22 U/L (15-37); Albumin 3.9 g/dL (3.4-5.0); Alkaline Phosphatase 54 U/L (46-116); Anion Gap 6.5 mmol/L (3-11); BUN 13 mg/dL (7-18); Bilirubin, Total 0.3 mg/dL (0.2-1.0); CO2 27.5 mmol/L (21.0-32.0); Calcium 9.1 mg/dL (8.5-10.1); Chloride 104 mmol/L (98-107); Estimated GFR 73.04 (mL/min/1.73m2); Ferritin 52 ng/mL (8-252); Glucose 92 mg/dL (74-106); Lipase 111 U/L (16-77); Sodium 138 mmol/L (136-145); Total Protein 7.2 g/dL (6.4-8.2)
== END 2022-11-10 02:55 | disposition home or self-care (01) ==
LOC: LBO 02:54
PROVIDERS: PCP Nurse Practitioner; Visit Provider Nurse Practitioner
DX: R10.12 Left upper quadrant pain (principal); R11.0 Nausea; F41.8 Other specified anxiety disorders; I45.6 Pre-excitation syndrome
CPT/HCPCS: 36415; 80053; 83690; 82728; 85025

== ENCOUNTER 2022-11-17 15:37 | Outpatient (CLI) | payer OTHER, SELFPAY ==
[2022-11-17 16:25] LABS: HCG Quant, Pregnancy < 1 mIU/mL (1-3)
== END 2022-11-17 15:38 | disposition home or self-care (01) ==
LOC: LBO 15:38
PROVIDERS: PCP Nurse Practitioner; Visit Provider Obstetrics & Gynecology Reproductive Endocrinology
DX: Z32.00 Encounter for pregnancy test, result unknown (principal)
CPT/HCPCS: 36415; 84702

== ENCOUNTER 2023-01-16 03:33 | Outpatient (CLI) | payer OTHER, SELFPAY ==
[2023-01-16 16:37] LABS: HCG Quant, Pregnancy < 1 mIU/mL (1-3)
== END 2023-01-16 03:34 | disposition home or self-care (01) ==
PROVIDERS: PCP Nurse Practitioner; Visit Provider Obstetrics & Gynecology Reproductive Endocrinology
DX: Z32.00 Encounter for pregnancy test, result unknown (principal)
CPT/HCPCS: 36415; 84702

== ENCOUNTER 2023-02-24 02:47 | Outpatient (CLI) | payer OTHER, SELFPAY ==
[2023-02-24 12:52] LABS: HCG Quant, Pregnancy < 1 mIU/mL (1-3)
== END 2023-02-24 02:48 | disposition home or self-care (01) ==
PROVIDERS: PCP Nurse Practitioner; Visit Provider Obstetrics & Gynecology Reproductive Endocrinology
DX: Z32.00 Encounter for pregnancy test, result unknown (principal)
CPT/HCPCS: 36415; 84702

== ENCOUNTER 2023-03-30 04:28 | Outpatient (CLI) | payer OTHER, SELFPAY ==
[2023-03-30 13:21] LABS: HCG Quant, Pregnancy < 1 mIU/mL (1-3)
== END 2023-03-30 04:29 | disposition home or self-care (01) ==
PROVIDERS: PCP Nurse Practitioner; Visit Provider Obstetrics & Gynecology Reproductive Endocrinology
DX: Z32.00 Encounter for pregnancy test, result unknown (principal)
CPT/HCPCS: 36415; 84702

== ENCOUNTER 2023-05-11 15:37 | Outpatient (REF) | payer OTHER, SELFPAY ==
[2023-05-13 13:27] LABS: TB Interpretation Negative (Negative)
== END 2023-05-11 15:38 | disposition home or self-care (01) ==
LOC: LBO 15:37
PROVIDERS: PCP Nurse Practitioner; Visit Provider Nurse Practitioner Family
DX: Z02.1 Encounter for pre-employment examination (principal); Z11.1 Encounter for screening for respiratory tuberculosis
CPT/HCPCS: 36415; 86480

== ENCOUNTER 2023-06-01 05:02 | Outpatient (CLI) | payer OTHER, SELFPAY ==
[2023-06-01 11:46] LABS: HCG Quant, Pregnancy 292 mIU/mL (1-3)
== END 2023-06-01 05:03 | disposition home or self-care (01) ==
PROVIDERS: PCP Nurse Practitioner; Visit Provider Obstetrics & Gynecology Reproductive Endocrinology
DX: Z32.01 Encounter for pregnancy test, result positive (principal)
CPT/HCPCS: 36415; 84702

== ENCOUNTER 2023-06-04 12:37 | Outpatient (CLI) | payer OTHER, SELFPAY ==
[2023-06-04 12:21] LABS: HCG Quant, Pregnancy 1568 mIU/mL (1-3)
== END 2023-06-04 12:38 | disposition home or self-care (01) ==
LOC: LBO 12:38
PROVIDERS: PCP Nurse Practitioner; Visit Provider Advanced Practice Midwife
DX: N96 Recurrent pregnancy loss (principal)
CPT/HCPCS: 36415; 84702

== ENCOUNTER 2023-06-26 03:08 | Outpatient (CLI) | payer OTHER, SELFPAY ==
[2023-06-26 16:25] LABS: FREE T4 1.19 ng/dL (0.76-1.46); TSH 1.54 uIU/mL (0.36-3.74)
== END 2023-06-26 03:09 | disposition home or self-care (01) ==
LOC: LBO 03:09
PROVIDERS: PCP Nurse Practitioner; Visit Provider Nurse Practitioner
DX: E03.9 Hypothyroidism, unspecified (principal)
CPT/HCPCS: 36415; 84439; 84443

== ENCOUNTER 2023-07-21 02:55 | Outpatient (CLI) | payer OTHER, SELFPAY ==
[2023-07-21 11:27] LABS: Panorama Kit Sent via Fed Ex
[2023-07-21 11:32] LABS: Abs Immature Grans 0.05 10^3/uL (0.0-0.06); Absolute Basophil Count 0.06 10^3/uL (0.0-0.2); Absolute Eosinophil Count 0.09 10^3/uL (0.0-0.7); Absolute Lymphocyte Count 1.46 10^3/uL (1.2-3.4); Absolute Monocyte Count 0.48 10^3/uL (0.1-0.8); Absolute Neutrophil Count 5.47 10^3/uL (1.2-6.7); Basophils % 0.8; Eosinophils % 1.2; HCT 37.8 % (36.0-46.0); HGB 13.1 g/dL (11.2-15.7); Immature Grans % 0.7; Lymphocytes % 19.2; MCH 29.1 pg (27.0-33.0); MCHC 34.7 % (32.0-36.0); MCV 84 fL (80-95); MPV 9.3 fL (8.0-11.0); Monocytes % 6.3; Neutrophils % 71.8; Platelet Count 248 10^3/uL (130-400); RDW 12.3 % (11.7-14.6); RDW-SD 37.5 fL; WBC 7.61 10^3/uL (4.4-10.8)
[2023-07-21 11:59] LABS: TSH (W/Ref FT4) 1.41 uIU/mL (0.36-3.74)
[2023-07-22 09:11] LABS: Hepatitis B Surface Ag Negative (Negative)
[2023-07-22 10:00] LABS: Hepatitis C Ab w Rflx HCV PCR Negative (Negative)
[2023-07-22 10:31] LABS: HIV-1/2 Ag & Ab Screen Negative (Negative)
[2023-07-22 10:48] LABS: Varicella IgG Antibody Positive (See Note)
[2023-07-22 10:53] LABS: Rubella IgG Ab (UVM) Positive (See Note)
[2023-07-26 13:02] LABS: Syphilis IgG w/Reflex Nonreactive (Nonreactive)
[2023-08-10 01:40] LABS: Result Summary NEGATIVE; Specimen WB Whole Blood
== END 2023-07-21 02:56 | disposition home or self-care (01) ==
LOC: LBO 02:55
PROVIDERS: PCP Nurse Practitioner; Visit Provider Advanced Practice Midwife
DX: Z34.91 Encounter for supervision of normal pregnancy, unspecified, first trimester (principal); Z3A.00 Weeks of gestation of pregnancy not specified
CPT/HCPCS: 36415; 81220; 81222; 86787; 86803; 86850; 86900; 86901; 87340; 87389; 84443; 85025; 86762; 86780

== ENCOUNTER 2023-07-21 11:23 | Outpatient (REF) | payer OTHER, SELFPAY ==
[2023-07-21 18:16] LABS: *AMPHETAMINES SCREEN URINE Negative (Negative); *BARBITURATES SCREEN URINE Negative (Negative); *BENZODIAZEPINES SCREEN URINE Negative (Negative); Cannabinoids THC Negative (Negative); Cocaine Screen,Urine Negative (Negative); METHADONE URINE SCREEN Negative (Negative); OPIATES URINE SCREEN Negative (Negative)
[2023-07-21 18:18] LABS: Tricyclic Antidepressants Negative (Negative)
[2023-07-22 16:49] LABS: Chlamydia Result Negative (Negative); GC Result Negative (Negative)
[2023-07-28 13:26] LABS: Buprenorphine Negative ng/mL (Cutoff: 5.0); Norbuprenorphine Negative ng/mL (Cutoff: 2.5)
== END 2023-07-21 11:24 | disposition home or self-care (01) ==
LOC: LBN 11:23
PROVIDERS: PCP Nurse Practitioner; Visit Provider Advanced Practice Midwife
DX: Z34.91 Encounter for supervision of normal pregnancy, unspecified, first trimester (principal); Z3A.00 Weeks of gestation of pregnancy not specified
CPT/HCPCS: 80307; 80348; 87491; 87591; 87086

== ENCOUNTER 2023-11-12 04:46 | Outpatient (CLI) | payer OTHER, SELFPAY ==
[2023-11-12 08:57] LABS: HCT 35.9 % (36.0-46.0); HGB 12.5 g/dL (11.2-15.7); MCH 29.2 pg (27.0-33.0); MCHC 34.8 % (32.0-36.0); MCV 84 fL (80-95); MPV 9.4 fL (8.0-11.0); Platelet Count 204 10^3/uL (130-400); RBC 4.28 10^6/uL (3.93-5.22); RDW 13.2 % (11.7-14.6); RDW-SD 39.8 fL; WBC 9.54 10^3/uL (4.4-10.8)
[2023-11-12 09:36] LABS: Glucose,1 Hr (Glucola) 123 mg/dL (80-140)
[2023-11-12 09:47] LABS: TSH (W/Ref FT4) 1.87 uIU/mL (0.36-3.74)
== END 2023-11-12 04:47 | disposition home or self-care (01) ==
LOC: LBO 04:46
PROVIDERS: PCP Nurse Practitioner; Visit Provider Advanced Practice Midwife
DX: Z34.92 Encounter for supervision of normal pregnancy, unspecified, second trimester (principal)
CPT/HCPCS: 36415; 82950; 85027; 84443

== ENCOUNTER → 2023-12-10 04:40 | Outpatient (CLI) | payer OTHER, SELFPAY ==
--- NOTE | 2023-12-10 07:00 | DI.US_ITS ---
Exam(s) US OB ANGELIQUE WEIGHT EXAM: US OB ANGELIQUE WEIGHT CLINICAL HISTORY: advanced maternal age,O09.529. TECHNIQUE: Transabdominal obstetrical ultrasound performed. COMPARISON: US POCUS EXAM from 06/30/2023 FINDINGS:: Number of fetuses: One. position: Vertex. Placental location: Fundal/posterior. No evidence of previa. BIOMETRIC DATA: BPD: 80mm = 32+ 0 weeks HC: 289mm = 31+ 6 weeks AC: 269mm = 31+ 0 weeks FL: 62 mm = 32+2 weeks EFW: 1795 Gms = 19.8% Composite Age: 31+ 6 weeks FE: 05 February 2024 Heart Rate: 135BPM Amniotic fluid index: 14.8 cm. Amount of fluid is visually within normal limits. IMPRESSION: size and weight are within the expected range. DATA REPOSITORY:
== END ==
PROVIDERS: PCP Nurse Practitioner; Visit Provider Advanced Practice Midwife
DX: O09.523 Supervision of elderly multigravida, third trimester (principal); Z3A.32 32 weeks gestation of pregnancy
CPT/HCPCS: 76816

== ENCOUNTER 2024-01-07 10:12 | Outpatient (REF) | payer OTHER, SELFPAY | END 2024-01-07 10:13 | disposition home or self-care (01) | LOC: LBN 10:12 | PROVIDERS: PCP Nurse Practitioner; Visit Provider Advanced Practice Midwife | DX: Z34.93 Encounter for supervision of normal pregnancy, unspecified, third trimester (principal) | CPT/HCPCS: 87081 ==

== ENCOUNTER 2024-01-14 13:43 | Outpatient (CLI) | payer OTHER, SELFPAY ==
[2024-01-14 14:51] VITALS: BP 117/75; PULSE 91
[2024-01-14 15:04] VITALS: BP 117/75; PULSE 91; TEMP 36.8
--- NOTE | 2024-01-14 15:28 | W.OBNST ---
Date of service: 01/14/24 Time of Service: 15:28 NST Evaluation Reason for NST Reasons for Nonstress Test: ADVANCED MATERNAL AGE Gestational Age Gestational Age in Weeks and Days: 37 Weeks and 2Days Test and Monitor Explained Test/Monitor Explained: Test Explained, Monitor Explained and Patient Verbalized Understanding Vital Signs Blood Pressure: 117/75 Pulse: 91 Temperature: 98.2 F Urine Results Urine Protein: Negative Urine Ketones: Negative Urine Glucose: Negative Urine Blood: Negative NST Information Date on Monitor: 01/14/24 Time on Monitor: 14:38 Date off Monitor: 01/14/24 Time off Monitor: 15:00 Total Time on Monitor: 22 NST Interventions: PO Hydration Contraction Frequency: 0 NST Evaluation Patient States Movement: Present FHR Baseline: 125 Variability: Moderate 6-25 bpm Accelerations: 15x15 Decelerations: None NST Results: Reactive Note Ultrasound Done: ANGELIQUE Indication: Other (AMA over 40) Total ANGELIQUE: 12.6 Other Pertinent Findings: Heart Rate (130), Presentation (cephalic LOP) and Placental Location (posterior) Coding for ANGELIQUE w/NST: Completed Exam. NST Note NST Reviewed and Verified by: Katie Aponte
[2024-01-14 15:29] VITALS: BP 117/75; PULSE 91; TEMP 36.8
== END 2024-01-14 15:26 | disposition home or self-care (01) ==
LOC: BCD 13:46 → OBS 14:35
PROVIDERS: PCP Nurse Practitioner; Visit Provider Advanced Practice Midwife
DX: O09.523 Supervision of elderly multigravida, third trimester (principal); Z3A.38 38 weeks gestation of pregnancy
CPT/HCPCS: 59025

== ENCOUNTER 2024-01-22 14:15 | Outpatient (CLI) | payer OTHER, SELFPAY ==
[2024-01-22 14:48] VITALS: BP 121/76; PULSE 100; TEMP 36.9
[2024-01-22 14:57] VITALS: BP 121/76; PULSE 100
--- NOTE | 2024-01-22 15:14 | W.OBNST ---
Date of service: 01/22/24 Time of Service: 15:15 NST Evaluation Reason for NST Reasons for Nonstress Test: ADVANCED MATERNAL AGE Gestational Age Gestational Age in Weeks and Days: 38 Weeks and 4Days Test and Monitor Explained Test/Monitor Explained: Test Explained, Monitor Explained and Patient Verbalized Understanding Vital Signs Blood Pressure: 121/76 Pulse: 100 Temperature: 98.4 F NST Information Date on Monitor: 01/22/24 Time on Monitor: 14:42 Date off Monitor: 01/22/24 Time off Monitor: 15:03 Total Time on Monitor: 21 NST Interventions: None NST Evaluation Patient States Movement: Present FHR Baseline: 130 Variability: Moderate 6-25 bpm Accelerations: 15x15 Decelerations: None NST Results: Reactive Note Ultrasound Done: N/A. NST Note Note: NST is reactive and reassuring. Declines induction at 39 weeks. Will return for testing on 01/27 with NST and ANGELIQUE. NST Reviewed and Verified by: Shirley Betancur
[2024-01-22 15:15] VITALS: BP 121/76; PULSE 100; TEMP 36.9
== END 2024-01-22 15:12 | disposition home or self-care (01) ==
LOC: BCD 14:16 → OBS 14:46
PROVIDERS: PCP Nurse Practitioner; Visit Provider Advanced Practice Midwife
DX: O09.523 Supervision of elderly multigravida, third trimester (principal); Z3A.39 39 weeks gestation of pregnancy
CPT/HCPCS: 59025

== ENCOUNTER 2024-01-28 07:22 | Outpatient (CLI) | payer OTHER, SELFPAY ==
[2024-01-28 14:48] VITALS: BP 110/73; PULSE 100; TEMP 36.8
[2024-01-28 16:12] VITALS: BP 108/63; PULSE 100
--- NOTE | 2024-01-28 17:00 | W.OBNST ---
Date of service: 01/28/24 Time of Service: 14:30 NST Evaluation Reason for NST Reasons for Nonstress Test: ADVANCED MATERNAL AGE Gestational Age Gestational Age in Weeks and Days: 39 Weeks and 2Days Test and Monitor Explained Test/Monitor Explained: Test Explained, Monitor Explained and Patient Verbalized Understanding Vital Signs Blood Pressure: 110/73 Pulse: 100 Temperature: 98.2 F NST Information Date on Monitor: 01/28/24 Time on Monitor: 14:37 Date off Monitor: 01/28/24 Time off Monitor: 15:11 Total Time on Monitor: 34 NST Interventions: None Contraction Frequency: No cxs noted NST Evaluation Patient States Movement: Present FHR Baseline: 125 Variability: Moderate 6-25 bpm Accelerations: 15x15 Decelerations: None NST Results: Reactive Note Ultrasound Done: ANGELIQUE (AMA >40, declines 39wk induction) Total ANGELIQUE: 12 Other Pertinent Findings: Heart Rate and Presentation (Vtx) Coding for ANGELIQUE w/NST: Completed Exam. NST Note NST Reviewed and Verified by: Kathy Jeffers
[2024-01-28 17:01] VITALS: BP 110/73; PULSE 100; TEMP 36.8
== END 2024-01-28 15:40 | disposition home or self-care (01) ==
LOC: BCD 07:24 → OBS 14:45
PROVIDERS: PCP Nurse Practitioner; Visit Provider Advanced Practice Midwife
DX: O09.523 Supervision of elderly multigravida, third trimester (principal); Z3A.39 39 weeks gestation of pregnancy
CPT/HCPCS: 59025

== ENCOUNTER 2024-02-04 13:37 | Outpatient (CLI) | payer OTHER, SELFPAY ==
[2024-02-04 13:56] VITALS: BP 122/82; PULSE 102
[2024-02-04 13:58] VITALS: BP 122/82; PULSE 102; TEMP 36.6
--- NOTE | 2024-02-04 14:45 | W.OBNST ---
Date of service: 02/04/24 Time of Service: 14:45 NST Evaluation Reason for NST Reasons for Nonstress Test: ADVANCED MATERNAL AGE Gestational Age Gestational Age in Weeks and Days: 40 Weeks and 2Days Test and Monitor Explained Test/Monitor Explained: Test Explained, Monitor Explained and Patient Verbalized Understanding Vital Signs Blood Pressure: 122/82 Pulse: 102 Temperature: 97.9 F NST Information Date on Monitor: 02/04/24 Time on Monitor: 13:56 Date off Monitor: 02/04/24 Time off Monitor: 14:21 Total Time on Monitor: 25 NST Interventions: None Contraction Frequency: 0 NST Evaluation Patient States Movement: Present FHR Baseline: 130 Variability: Moderate 6-25 bpm Accelerations: 15x15 Decelerations: None NST Results: Reactive Note Ultrasound Done: ANGELIQUE (postdates) Largest Vertical Pocket: 4.2 Total ANGELIQUE: 10.8 Other Pertinent Findings: Heart Rate (146), Presentation (LOP) and Placental Location (posterior) Coding for ANGELIQUE w/NST: Completed Exam. NST Note Note: Pt booked IOL for AMA and postdates on Thursday02/09/24 NST Reviewed and Verified by: Katie Aponte
[2024-02-04 14:48] VITALS: BP 122/82; PULSE 102; TEMP 36.6
== END 2024-02-04 14:53 ==
LOC: BCD 13:37 → OBS 13:51
PROVIDERS: PCP Nurse Practitioner; Visit Provider Advanced Practice Midwife
DX: O09.523 Supervision of elderly multigravida, third trimester (principal); Z3A.40 40 weeks gestation of pregnancy
CPT/HCPCS: 59025

== ENCOUNTER 2024-02-09 07:50 | Inpatient (IN) | payer OTHER, SELFPAY ==
[2024-02-09] VITALS (42 sets, daily range): BP systolic 113–132; BP diastolic 65–89; PULSE 78–117; RESP 17–18; TEMP 36.6–36.9; O2SAT 95–99
[2024-02-09 09:34] LABS: HCT 35.2 % (36.0-46.0); HGB 12.1 g/dL (11.2-15.7); MCH 28.7 pg (27.0-33.0); MCHC 34.4 % (32.0-36.0); MCV 84 fL (80-95); MPV 10.3 fL (8.0-11.0); Platelet Count 183 10^3/uL (130-400); RBC 4.21 10^6/uL (3.93-5.22); RDW 13.2 % (11.7-14.6); RDW-SD 39.8 fL; WBC 8.14 10^3/uL (4.4-10.8)
[2024-02-09] MEDS: miSOPROStol 50 MCG TAB PO (09:35)
--- NOTE | 2024-02-09 09:43 | HPE_ITS ---
Date of service: 02/09/24 Time of Service: 09:43 Assessment and Plan Assessment and plan (1) AMA (advanced maternal age) multigravida 35+: Status: Acute Qualifiers: Trimester: third trimester Qualified Code(s): O09.523 - Supervision of elderly multigravida, third trimester (2) 41 weeks gestation of : Status: Acute (3) Encounter for induction of labor: Status: Acute Assessment and plan: A: 43 yo @ 41 wks, IOL for AMA and postdates Reassuring surveillance for AMA from 37 wks Category 1 tracing, GBS negative, ahn score of 4 Hypothyroidism treated with levothyroxine, Depression/anxiety/OCD treated with propanolol WPW with s/p ablation low risk for SD, moderate risk for PPH due to IOL process P: Cervical ripening process and options reviewed with pt (miso, cervadil, balloon) Will start w/misoprostel, consider cervadil tonight pending response to miso Anticipate once active labor is achieved Dr. Moore available for consultation OB-HPI Labor/Delivery History of Present Illness Reason for Visit: Postdates AMA for Induction Chief Complaint: Scheduled Induction of Labor Indication for Induction: Post Date. FE Calculator Estimated Delivery Date Method Current WG Current Estimate 02/02/24 LMP (Certain) 41w 0d Other Estimates 02/04/24 Ultrasound #1 40w 5d 02/12/24 Ultrasound #2 39w 4d History of Present Expected Delivery Route/Plan - CNM FOB/ - Armond Skelton BB yes to circ Pt open to IOL based on surveillance results GBS negative Specific Issues/Plan 1. History of loss - normal US at DI at 6 weeks 1 day. 2. AMA: level [address] [facility] and MFM consult on 09/15, Panorama and CF neg 2a. level 2 scan nml, MFM consult no further f/up indicated, 2b. Growth at 32 wks: EFW in 20th percentile, ANGELIQUE 15 2c. Consider AMA surveillance @ 37 wks (NST, ANGELIQUE), offer IOL @ 39-40 wks 3. History of Anxiety, depression and OCD, uses Propranolol for this with good success 4. Ebws-Htotiabxg-Ruupe Syndrome, had ablation [address] [facility] 4a. Having occasional palpitations, no more than pre- 5. Hypothyroidism, TSH @ initial - TSH 1.41, repeat w/28 wk labs 1.87 6. Increased risk for Pre-eclampsia, will take low dose ASA and meet with M Assessment: History Reviewed & Current Informed Consent Informed Consent: Induction of Labor and Risk,Benefits,Alternatives Discussed Review of Systems Narrative: ROS completed and found to be noncontributory other than HPI PFSH All Active Problems (Updated 02/09/24 @ 09:48 by Katie Aponte) Encounter for induction of labor (Acute) 41 weeks gestation of (Acute) AMA (advanced maternal age) multigravida 35+ (Acute) (Acute) Uterine polyp (Acute) Anxiety (Acute) Depressive disorder (Chronic) Exercise-induced asthma (Acute 03/16/18) Hypothyroidism (Acute 12/07/13) Obsessive compulsive disorder (Acute) Qwdes-Hqeyjmswp-Irycr pattern (Acute) Medical History (Updated 02/09/24 @ 09:48 by Katie Aponte) Abdominal cramping Recurrent loss Lumbar back pain Right leg numbness Bilateral wrist pain Temporomandibular joint disorder Polycystic ovaries IC (interstitial cystitis) (12/01/16) Surgical History (Updated 07/21/23 @ 10:31 by Shirley Betancur CNM) History of cardiac radiofrequency ablation H/O dilation and curettage Post-operative state Family History (Updated 07/21/23 @ 10:32 by Shirley Betancur CNM) Mother Essential hypertension Heart disease Hyperlipidemia Mental disorder Thyroid disorder Father Personal history of malignant neoplasm LUNG Heart disease Mental disorder Grandfather Heart disease Mental disorder Grandfather Heart disease Mental disorder Grandmother Personal history of malignant neoplasm LUNG Heart disease Mental disorder Grandmother Heart disease Mental disorder Maternal Uncle Heart disease Mental disorder Maternal Aunt Diabetes Heart disease Mental disorder Thyroid disorder 03/16/18-reports 3 aunts great aunt Arthritis Paternal Uncle Diabetes Social History (Updated 06/30/23 @ 10:12 by Regla Moore MD) Smoking/Tobacco Use Status: Never Second Hand Exposure: No Smoking risk assessment performed?: Yes Alcohol Intake: never Drug use: Occasionally Substance use type: marijuana Details: Alcohol and marijuna use have stopped since + test. Adopted: No Caregiver/Support person: No Foster care: No Household members: spouse and other Details: Christine Leahy. 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 Pets and animals: No Sexually active: Yes Do you think of yourself as: straight/heterosexual Current gender identity: female What is your relationship status?: How often do you talk on the phone with friends or family?: twice per week How often do you get together with friends or relatives?: once per week Do you belong to any clubs or organized social groups?: no Panel score (0-1 are the most socially isolated patients): 2 What type of physical activity do you participate in: bicycling, regular exercise and other Duration: 45-60 minutes/day Frequency: 3-4 times per week Special mukesh needs: No Seatbelt use: always Helmet use: Yes Helmet use: always Drive intox or ride w/intox caterpillar driver: No Working smoke detector in home: Yes Fire extinguisher in home: Yes Carbon monox detector in home: Yes Do you feel safe at home: Yes Do you feel safe in your relationship?: Yes Victim of physical abuse: No Victim of emotional abuse: No Victim of sexual abuse: No History History 3 Para 0 Hx # Term Pregnancies 0 Multiple births 0 Hx # Pregnancies 0 Ectopic pregnancies 0 AB induced 0 Hx Number of Living Children 0 AB spontaneous 2 Past Pregnancies Del. Date GA/Weeks # Preg Succ Route Wgt Sex Labor Lgth Anesth esia Location [facility] 08/26/21 8 No No 02/19/22 8 No Delivery Date: 08/26/21 Last Updated by: Shirley Betancur CNM Missed AB, misoprostol Delivery Date: 02/19/22 Last Updated by: Shirley Betancur CNM Missed AB, D&C to complete Meds Allergies and Home Medications Allergies Allergy/AdvReac Type Severity Reaction Status Date / Time bupropion Allergy Intermediate Hives Verified 01/22/24 15:12 Sulfa (Sulfonamide Allergy Intermediate hives Verified 01/22/24 15:12 Antibiotics) Home Medications Medication Instructions Recorded Confirmed Type glucosamine sulfate 2KCl 1,000 mg 1 tab PO DAILY 04/06/13 02/09/24 History tablet multivitamin (Daily Vitamin tablet) 1 tab PO DAILY 04/06/13 02/09/24 History triamcinolone acetonide 0.1 % 1 applic topical BID #30 grams 02/17/22 02/09/24 Rx topical cream levothyroxine 50 mcg tablet 50 mcg PO DAILY #90 tab-caps 06/17/23 02/09/24 Rx vitamins no.121-iron 28 1 tab PO DAILY 07/21/23 02/09/24 History mg-folic acid 800 mcg tablet pantoprazole 40 mg tablet,delayed 40 mg PO DAILY #90 tabs 12/10/23 02/09/24 Rx release (Protonix) propranolol 60 mg capsule,24 60 mg PO DAILY #60 tabs 01/18/24 02/09/24 Rx hr,extended release mirtazapine 30 mg tablet 30 mg PO HS #60 tabs 01/25/24 02/09/24 Rx Exam Physical Exam Vital signs: Temp Pulse Resp BP Pulse Ox 98.4 F 96 H 18 116/65 99 02/09/24 08:11 02/09/24 09:39 02/09/24 08:11 02/09/24 09:39 02/09/24 08:11 Vital Signs Reviewed: Yes Constitutional Constitutional: no acute distress, average body habitus and cooperative Detailed Labor and Delivery Exam Dilation: 1 Effacement (%): 50 station: -3 Cervix position: mid Consistency: medium AHN Score(Cervical Ripeness Score): 4 Amniotic Membrane Status: Intact Fetus A Heart Rate Baseline: 120 Monitor Accelerations: 15 X 15 Monitor Decelerations: None Variability: Moderate (6-25 BPM) Categories: Category I Est. Weight: 7 lb 0.877 oz Est. Weight: 3200 gms HEENT Exam HEENT Exam: Normal Neck Exam Neck Exam: Normal Chest/Brest/Axilla Exam Chest Exam: Normal Breast Exam Breast Exam: Not Done Respiratory Exam Respiratory Exam: Normal Cardiovascular Exam Cardiovascular Exam: Normal Abdominal Exam Abdominal Exam: Normal (Gravid, soft, nontender) Rectal Exam Rectal Exam: Normal Exam Exam: Normal Extremities Exam Extremities Exam: Normal Back/Spine/Pelvis Exam Back Exam: Normal Pelvis Adequate: Yes Skin Exam Skin Exam: Normal Neurological Exam Neurological Exam: Normal Psychiatric Exam Psychiatric Exam: Normal Results Results Group Beta Strep: Negative Blood Type: A+ Rubella Status: Immune Varicella Immunity: Immune Abnormal Lab Findings: Abnormal Labs 02/09/24 09:08 Hct 35.2 L Risk Assessment Risk for Shoulder Dystocia Historical/Initial OB: NEGATIVE FOR: Pelvic Abnormality, Pre- BMI>30, Previous Shoulder Dystocia or Previous Macrosomia 36 Weeks: NEGATIVE FOR: Current Gestational DM, EFW>4500gms or Maternal Weight Gain>40lbs 40 Weeks: POSTIVE FOR: Maternal Weight Gain >40lb and Post Dates; NEGATIVE FOR: EFW> 4500 gms Increased Risk?: No Counseling: EFW @ 7-8 lbs Delivery Plan @ 36wks: Delivery Plan @ 40 wks: IOL @ 41 wks Risk for Pre-Eclampsia Daily Dose ASA Indicated: Yes Date Initiated/Initials: to start @ 12 weeks Yes, if one or more: NEGATIVE FOR: Hx Pre-E/Gest HTN, Chronic HTN, Multiple Gestation, Pre-gestational DM, Renal Disease, Systemic Lupus or APA Syndrome Yes, if 2 or more: POSITIVE FOR: Nulliparity and Age>= 35 yrs; NEGATIVE FOR: >10yr btwn pregnancies, BMI>30, ethinicty, Mother/Sister w/ Pre-E or Previous IUGR Risk for Post- Hemorrhage Initial: NEGATIVE FOR: Multiple Gestation, Previous PPH, Known Clotting Deficiency, Grand Multiparity or Anticoagulation 36 Weeks: NEGATIVE FOR: Anemia, hgb<10, Low platelets(thrombocytopenia), Gestational HTN or Pre-E, Polyhydraminios or EFW>4500gms 40 Weeks: NEGATIVE FOR: Anemia, hgb<10, Low platelets (thrombocytopenia), Gestation HTN or Pre-E, Polyhydraminios or EFW>4500gms At Risk?: Yes (due to induction process) Counseled re: Active Management: Yes Risks Reviewed Risks Reviewed Upon Admission: Yes
[2024-02-09] MEDS: miSOPROStol 50 MCG TAB 25 MCG PO (14:15)
--- NOTE | 2024-02-09 16:43 | W.PM.OBNL1 ---
Date of service: 02/09/24 Time of Service: 16:43 Informed Consent Informed Consent: Induction of Labor and Risk,Benefits,Alternatives Discussed Contractions Monitor Mode: External Contraction Frequency(min): q2-4 Contraction Duration(sec): 60-80 Intensity: Mild/Moderate Fetus A Monitor: External (US) Heart Rate Baseline: 125 Variability: Moderate (6-25 BPM) Categories: Category I Accelerations: 15 X 15 Amniotic Membrane Status: Intact Assessment Note: Occasional episodic and nonrecurrent variable decel noted that occur during periods of movement, chidi of 60 lasting 30-70 seconds. Recovery is spontaneous or with maternal position change, variability remains moderate, tracing remains overall cat 1 and reassuring. Assessment and Plan Assessment and plan (1) Encounter for induction of labor: Status: Acute Assessment and plan: A: IOL via cervical ripening for AMA, 41 wks Overall category 1 tracing with infrequent nonrecurrent variable decel P: 2nd dose of misoprostel, 25 mcg given PO @ 1400 Continuous EFM, recheck cvx @ [address] Moore on pt status and review tracing Objective Abnormal lab results 02/09/24 Range/Units 09:08 Hct 35.2 L (36.0-46.0) % Temp Pulse Resp BP Pulse Ox 98.2 F 83 17 113/73 99 02/09/24 12:38 02/09/24 12:38 02/09/24 12:38 02/09/24 12:38 02/09/24 12:38 Laboratory Results WBC 8.14 10^3/uL (4.4-10.8) 02/09/24 09:08 RBC 4.21 10^6/uL (3.93-5.22) 02/09/24 09:08 Hgb 12.1 g/dL (11.2-15.7) 02/09/24 09:08 Hct 35.2 % (36.0-46.0) L 02/09/24 09:08 MCV 84 fL (80-95) 02/09/24 09:08 MCH 28.7 pg (27.0-33.0) 02/09/24 09:08 MCHC 34.4 % (32.0-36.0) 02/09/24 09:08 RDW 13.2 % (11.7-14.6) 02/09/24 09:08 Plt Count 183 10^3/uL (130-400) 02/09/24 09:08 MPV 10.3 fL (8.0-11.0) 02/09/24 09:08 ABO/Rh A Positive 02/09/24 09:08 Antibody Screen NEGATIVE 02/09/24 09:08 Vital Signs Reviewed: Yes Objective Narrative Objective Narrative: Pt calm and relaxed, conversational, appears comfortable Vital signs are stable, normotensive, afebrile Pt accompanied by Subjective Interval history since last seen: Increased lower abd cramping since taking misoprostel. Tolerating PO intake well.
--- NOTE | 2024-02-09 20:38 | W.PM.OBNL1 ---
Date of service: 02/09/24 Time of Service: 20:38 Informed Consent Informed Consent: Induction of Labor, Risk,Benefits,Alternatives Discussed and Other (AROM ) Pelvic Exam Dilation: 2.5 Effacement (%): 90 station: -2 Position: LOP Cervix Position: mid Consistency: medium BISHOPS Score(Cervical Ripeness Score): 7 Contractions Monitor Mode: External Contraction Frequency(min): 2-3 Contraction Duration(sec): 60-80 Intensity: Moderate Fetus A Monitor: External (US) Heart Rate Baseline: 130 Variability: Moderate (6-25 BPM) Categories: Category I Accelerations: 15 X 15 Decelerations: None Amniotic Membrane Status: Ruptured Rupture Method: Artifical Amniotic Fluid: Clear Amount: moderate amt Date of Membrane Rupture: 02/09/24 Time of Membrane Rupture: 21:03 Assessment and Plan Assessment and plan (1) Encounter for induction of labor: Status: Acute Assessment and plan: A: Increasing labor, category 1 tracing overall, pt coping well AROM performed with pt consent, clear fluid, FSE applied Occasional nonrecurrent variables P: Dr. Moore has reviewed tracing Expectant management at this time Anticipate Objective Vital Signs Reviewed: Yes Subjective Interval history since last seen: Contractions increasing in strength and frequency, nauseated, breathing heavily through pains Procedure Procedures: Scalp Electrode Placement , indication for electrode: consistent tracking of FHT, recent variables, maternal position changes
[2024-02-09] MEDS: Lactated Ringers 250 ML 500 ML IV (22:30)
--- NOTE | 2024-02-09 22:46 | PGE_ITS ---
Date of service: 02/09/24 Time of Service: 22:46 Informed Consent Informed Consent: Regional Anesthesia and Risk,Benefits,Alternatives Discussed Pelvic Exam Dilation: 3.5 Effacement (%): 100 station: -2 Position: LOP Cervix Position: anterior Consistency: soft Contractions Monitor Mode: External Contraction Frequency(min): q2-3 Contraction Duration(sec): 70-80 Intensity: Moderate/Strong Fetus A Monitor: External (US) Heart Rate Baseline: 120 Variability: Moderate (6-25 BPM) Categories: Category I Accelerations: 15 X 15 Decelerations: None Amniotic Membrane Status: Ruptured Assessment and Plan Assessment and plan (1) Encounter for induction of labor: Status: Acute Assessment and plan: A: Pt requesting epidural anesthesia Labor more active @ 3-4 cms, vtx LOP @ -2 Category 1 tracing P: MECHANICAL SERVICE TECHNICIAN paged and en route Will consider pitocin augmentation when pt more comfortable Dr. Moore inhouse if needed Objective Vital Signs Reviewed: Yes Subjective Interval history since last seen: Pt has used nitrous, hands & knees on floor mat using CUB for upper body support, FOB providing support, desires epidural now.
[2024-02-10] VITALS (69 sets, daily range): BP systolic 88–137; BP diastolic 55–75; PULSE 81–125; RESP 12–18; TEMP 36.6–36.9; O2SAT 97–100; BMI 34.7
[2024-02-10] MEDS: FentaNYL/ROPIvacaine 2 mcg/ml and 0.1% 200 ML CADD Cassette EP (00:05)
--- NOTE | 2024-02-10 00:15 | W.ANESNEU ---
Epidural/Spinal Catheter Date Performed: 02/09/24 Procedure Start: 23:17 Procedure Stop: 12:02 Requesting Provider: Katie Aponte Procedure Location: Obstetrics Reason Performed: Labor Epidural Standard Monitors Applied: ECG, Blood Pressure, SpO2 and See EMR for corresponding vital signs Patient Position: Sitting Sedation Given (Indicate Dose Given): No Sedation given Patient Mental Status: Awake Sterility: Hand Hygiene, Surgical Cap, Surgical Mask, Sterile Gloves, Sterile Drape/Sheet, Eye Protection and Chlorhexidine Procedure Location: L4-L5 Interspace Epidural Needle: Tuohy 18 Gauge Needle Length: 3.5 Inch Needle Approach: Midline Epidural Procedure: Skin Prepped, Sterile Drape Placed, 1% Lidocaine to skin and subcutaneous tissue with 25G needle, Tuohy Needle placed, JING to Saline Used, Epidural Catheter Placed, Negative Heme, Negative CSF Flow and Tuohy Needle Removed Catheter Placed?: Catheter Placed Test Dose (Indicate Dose Given): 3ml 1.5% Lidocaine with 1:200K Epinephrine Given Loss of Resistance Depth (cm): 6 Catheter depth at skin (cm): 12 Dressing: Sorbaview Dressing Placed, Tegaderm Applied and Mastisol Used Epidural Provider Bolus (Indicate Dose Given): Total Ropivacaine 0.1% with Fentanyl 2mcg/ml Given from pump. (ml) Dose:: 8cc Additives (Indicate Dose Given ): None Infusion Medication: Medication Infusion Began Medication Infusion: Ropivacaine 0.1% with Fentanyl 2mcg/ml (10cc/hour) Maintenance Infusion Rate (ml/hour): 10 PCEA Bolus Dose (ml): 5 Post Procedure Pain score (0-10): 2 Block Level: T7 Paresthesia: None Ultrasound: Used to karina site Number of Attempts (See previous attempts in note section): 3 Procedure Tolerated: No Complications and Patient tolerated well Procedure Outcome: Successful Procedure Comment:: Unable to access epidural space at L3-4, 2 attempts. Moved to L4-5 and accessed epidural space with cath placed Performed By: Robinson Wilder
--- NOTE | 2024-02-10 00:24 | W.ANESPRE ---
General Info Date of Service Date Performed: 02/09/24 Height: 5 ft 6 in Weight: 97.522 kg Body Mass Index (BMI): 34.7 Meds Allergies and Home Medications Allergies Allergy/AdvReac Type Severity Reaction Status Date / Time bupropion Allergy Intermediate Hives Verified 01/22/24 15:12 Sulfa (Sulfonamide Allergy Intermediate hives Verified 01/22/24 15:12 Antibiotics) Home Medication Medication Instructions Recorded glucosamine sulfate 2KCl 1,000 mg 1 tab PO DAILY 04/06/13 tablet multivitamin (Daily Vitamin tablet) 1 tab PO DAILY 04/06/13 triamcinolone acetonide 0.1 % 1 applic topical BID #30 grams 02/17/22 topical cream levothyroxine 50 mcg tablet 50 mcg PO DAILY #90 tab-caps 06/17/23 vitamins no.121-iron 28 1 tab PO DAILY 07/21/23 mg-folic acid 800 mcg tablet pantoprazole 40 mg tablet,delayed 40 mg PO DAILY #90 tabs 12/10/23 release (Protonix) propranolol 60 mg capsule,24 60 mg PO DAILY #60 tabs 01/18/24 hr,extended release mirtazapine 30 mg tablet 30 mg PO HS #60 tabs 01/25/24 Current Visit Medications: Current Medications Generic Name Dose Route Start Last Admin Trade Name Freq PRN Reason Stop Dose Admin Diphenhydramine HCl 25 mg 02/10/24 00:22 Diphenhydramine 50 Mg/Ml Vial IVP Q6H PRN PRN Persistent pruritis face/trunk Ephedrine Sulfate 5 mg 02/09/24 22:31 Ephedrine 50 Mg/Ml Vial IVP DIRECTED PRN Ephedrine Sulfate 5 mg 02/10/24 00:22 Ephedrine 50 Mg/Ml Vial IVP DIRECTED PRN Fentanyl/Ropivacaine 200 ml 02/09/24 22:45 Fentanyl/Ropivacaine 2 Mcg/Ml And 0.1% 200 Ml Cadd Cassette EP DIRECTED RAJWINDER Fentanyl/Ropivacaine 200 ml 02/10/24 00:30 Fentanyl/Ropivacaine 2 Mcg/Ml And 0.1% 200 Ml Cadd Cassette EP DIRECTED RAJWINDER Ringer's Solution 1,000 mls @ 125 mls/hr 02/10/24 00:15 IV INFUSION RAJWINDER Oxytocin/Sodium Chloride 30 unit in 500 mls @ 2 mls/hr 02/10/24 00:15 Pitocin/Normal Saline IV INFUSION [facility] Protocol 2 MILLIUNITS/MIN Ringer's Solution 250 mls @ 500 mls/hr 02/10/24 00:22 IV 02/10/24 00:51 BOLUS ONE Naloxone HCl 2 mg/ Sodium 500 mls @ 12.19 mls/hr 02/10/24 00:22 Chloride IV INFUSION PRN pruritis 0.5 MCG/KG/HR Nalbuphine HCl 5 mg/ Sodium 50.5 mls @ 100 mls/hr 02/10/24 00:22 Chloride IVPB Q3H PRN PRN Pruritis IV Miscellaneous Supplies 1 each 02/10/24 00:15 Iv Access IV DIRECTED [facility] Levothyroxine Sodium 50 mcg 02/10/24 06:00 Levothyroxine 25 Mcg Tab PO DAILY@0600 [facility] Naloxone HCl 0 mg 02/09/24 22:31 Naloxone 0.4 Mg/Ml Vial IVP DIRECTED PRN Naloxone HCl 0 mg 02/10/24 00:22 Naloxone 0.4 Mg/Ml Vial IVP DIRECTED PRN Ondansetron HCl 4 mg 02/10/24 00:22 Ondansetron 4 Mg/2 Ml Vial IVP Q6H PRN PRN Nausea Pantoprazole Sodium 40 mg 02/09/24 08:30 Pantoprazole 40 Mg Tabcr PO DAILY@0730 [facility] Propranolol HCl 60 mg 02/09/24 08:30 Propranolol 60 Mg Capcr PO DAILY [facility] Sodium Chloride 0 ml 02/10/24 00:03 Normal Saline 10 Ml Vial IJ DIRECTED PRN Terbutaline Sulfate 0.25 mg 02/09/24 07:50 Terbutaline 1 Mg/Ml Vial SC PRN PRN PFSH Active Problems Active Problems: Problem Status Onset Code Encounter for induction of labor Z34.90 41 weeks gestation of O48.0, Z3A.41 AMA (advanced maternal age) multigravida 35+ O09.529 Z34.90 Uterine polyp N84.0 Anxiety F41.9 Depressive disorder F32.9 Exercise-induced asthma 03/16/18 J45.990 Hypothyroidism 12/07/13 E03.9 Obsessive compulsive disorder F42.9 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 Medical History Medical History (Updated 02/09/24 @ 09:48 by Katie Aponte) Abdominal cramping Recurrent loss Lumbar back pain Right leg numbness Bilateral wrist pain Temporomandibular joint disorder Polycystic ovaries IC (interstitial cystitis) (12/01/16) Surgical History Surgical History (Updated 07/21/23 @ 10:31 by Shirley Betancur CNM) History of cardiac radiofrequency ablation H/O dilation and curettage Post-operative state Tobacco Smoking/Tobacco Use Status: Never Passive smoking exposure: No Second hand exposure: No Alcohol Alcohol Intake: never Substance Use Substance use: Occasionally Substance use type: marijuana Details: Alcohol and marijuna use have stopped since + test. Prental History History 3 Para 0 Hx # Term Pregnancies 0 Multiple births 0 Hx # Pregnancies 0 Ectopic pregnancies 0 AB induced 0 Hx Number of Living Children 0 AB spontaneous 2 Past Pregnancies Del. Date GA/Weeks # Preg Succ Route Wgt Sex Labor Lgth Anesthesia Location Prov Complic 08/26/21 8 No No 02/19/22 8 No Delivery Date: 08/26/21 Last Updated by: Shirley Betancur CNM Missed AB, misoprostol Delivery Date: 02/19/22 Last Updated by: Shirley Betancur CNM Missed AB, D&C to complete Vital Signs and Lab Results Vital Signs Most Recent Vital Signs in EMR: Most Recent Vital Signs Temp Pulse Resp BP Pulse Ox 36.8 C 95 H 17 117/70 99 02/09/24 12:38 02/10/24 00:21 02/09/24 12:38 02/10/24 00:17 02/10/24 00:20 Lab Results 02/09/24 09:08 Blood Type / Crossmatch: Antibody Screen NEGATIVE 02/09/24 Complete Blood Count: White Blood Count 8.14 10^3/uL (4.4-10.8) 02/09/24 09:08 Red Blood Count 4.21 10^6/uL (3.93-5.22) 02/09/24 09:08 Hemoglobin 12.1 g/dL (11.2-15.7) 02/09/24 09:08 Hematocrit 35.2 % (36.0-46.0) L 02/09/24 09:08 Platelet Count 183 10^3/uL (130-400) 02/09/24 09:08 Complete Metabolic Panel: No Data to Display Liver Function Panel: No Data to Display Coagulation Panel: No Data to Display Cardiac Panel: No Data to Display Arterial Blood Gas: No Data to Display Venous Blood Gas: No Data to Display Pancreas Panel: No Data to Display Thyroid Panel: No Data to Display Infectious Disease: No Data to Display Blood Cultures: No Data to Display Toxicology Panel: No Data to Display Panel: No Data to Display Anesthesia Assessment and Plan Anesthesia History Personal History: No History of Anesthesia Complications Family History: No Family History of Anesthesia Complications Exercise Tolerance Exercise Tolerance: Metabolic Equivalents>4 Pertinent Negatives Pertinent Negatives: No Symptoms of GERD Cardiac & Pulmonary Exam Cardiac Exam: Normal S1/S2 Heart Sounds Pulmonary Exam: Clear Bilateral Breath Sounds Implantable Cardiac Device Does patient have a Pacemaker or an ICD?: No Airway Exam Known Difficult Airway: No Mallampati Class: 1 Mouth Opening: Normal (> 3cm) Thyromental Distance: Greater than 3 cm Neck Range of Motion: Full ROM Neck Circumference: Normal Teeth Condition: Normal Dentition ASA Classification ASA Score: ASA 2 Emergency Case?: No NPO Status NPO Status: NPO Clear Liquids>2 hours Status Status: Confirmed Anesthesia Plan Resuscitation Status: Full Code Anesthesia Technique: Labor Epidural Airway Planned: Natural Airway Monitors Used: Standard Monitors
[2024-02-10] MEDS: Oxytocin/Normal Saline 30 UNITS/500 ML BAG 125 UNITS IV (02:20)
--- NOTE | 2024-02-10 03:17 | W.OBDELIVERY ---
Date of service: 02/10/24 Time of Service: 03:17 OB Labor/ Delivery Information Baby A Delivery Delivery Method: Spontaneaous Presentation: Cephalic Cephalic Position: Vertex Vertex Position: Left Occipital Anterior Breech Position: N/A Cord Description-Baby A: 3 Vessels Amniotic Fluid: Clear Estimated Blood Loss: 700 ml Delivery Outcome: Liveborn Transferred: Remains with Mother Note: Epidural provided good effect, tracing was overall category 1 throughout anesthesia induction with early decels noted though late decels after epidural in place noted, BP low @ 100/60's, IV fluid bolus given and maternal position changes resolved hypotension, tracing improved with moderate variability persisting. White cath inserted @ 0053 and dilation was 6 cm per RN exam. Pt was able to sleep for 45 minutes during which time tracing was increasingly category 2 due to lates and variables reappearing. RN used intrauterine resuscitative measures and called CNM to bedside @ 0130, dilation was 9 cm and 0 station per RN exam. Category 1 tracing was achieved with pt in RLP for 20 minutes, then decel to chidi of 50 bpm occured x2 minutes, pt to hands and knees with recovery of FHT x4 minutes, CNM exam found pt fully and vtx @ +3, Dr. Moore notified of pt status and was in unit, pt began effective coached pushing in semifowlers which resulted in 15 minutes later of a vigorous male , shoulders delivered with ease and no cord entanglement was found. to mother's arms immediately, cord segment taken and MD maris cord gas which was transported to lab, cord blood was collected and pitocin bolus was begun. Bleeding from multiple vaginal lacerations was noted, Dr. Moore facilitated Tello placenta delivery intact with 3 VC, fundus firm with minimal lochia, Dr. Moore completed complex vaginal repair using local anesthesia and epidural in effect, bleeding controlled quickly, see procedure note. Apgars 7/9, weight 2865 gms, strong family bonding observed. Providers Doctor: Regla Moore Nurse Dope Dry House Operator: Katie Aponte Supervisor Drying And Softening: Robinson Wilder Nurse: Elsa Luong Nurse: Smitha Arnold Labor/Delivery Information Number of Babies in Womb: 1 Steroids Given: None Reason Steroids Not Administered: N/A Group Beta Strep: Negative Antibiotics Administered: No Rubella Status: Immune Blood Type: A+ Varicella Immunity: Immune Maternal Complications: None Shoulder Dystocia: No Stages of Labor Onset of Labor Date: 02/09/24 Onset of Labor Time: 18:00 Complete Dilatation Date: 02/10/24 Complete Dilatation Time: 02:01 Labor - Stage 1 Duration: 8 hours and 1 minutes ROM Baby A: 02/09/24 ROM Baby A: 21:03 Delivery Date-Baby A: 02/10/24 Infant Delivery Time-Baby A: 02:13 Labor Stage 2 Duration: 12 minutes Placenta Delivery Date-Baby A: 02/10/24 Placenta Delivery Time-Baby A: 02:17 Labor-Stage 3 Duration: 4 minutes Total Length of Labor-Baby A: 8 hours and 13 minutes Placenta Status: Delivered Baby A Gender: Male Gestational Status: Term (39-41.6 wks) weight: 6 lb 5.06 oz Weight Comment: 2865 gms Score-1 Minute Interval(Baby A) Heart Rate-1 minute: 100 BPM or Greater Respiratory Effort- 1 minute: Spontaneous/Strong Cry Muscle Tone-1 minute: Minimal Flexion/Extension Reflex Response-1 minute: Prompt Response Color-1 minute: Pallor or Cyanosis Score-5 Minute Interval(Baby A) Heart Rate- 5 minute: 100 BPM or Greater Respiratory Effort-5 minute: Spontaneous/Strong Cry Muscle Tone-5 minute: Active Movement Reflex Response-5 minute: Prompt Response Color-5 minute: Bluish Hands or Feet Procedure Procedures: Cord Blood Collection Interventions Repair of Laceration Type: Periurethral and Sulcus, Laceration Extension: Second Degree. Sponge Count Correct: Vaginal Sweep Peformed, Sharp Count Correct: Yes. Laceration Repair Note: See MD note
[2024-02-10] MEDS: Ibuprofen 600 MG TAB PO ×2 (06:08→12:48)
[2024-02-10] MEDS: Acetaminophen 325 MG TAB 650 MG PO ×4 (06:08→18:01)
[2024-02-10] MEDS: Levothyroxine 25 MCG TAB 50 MCG PO (06:09)
[2024-02-10] MEDS: Propranolol 60 MG CAPCR PO (06:11)
[2024-02-10] MEDS: Hamamelis Leaf/Glycerin 100 EACH BOX PR (09:24)
[2024-02-10] MEDS: Dibucaine 1% 28 GM TUBE TP (09:25)
--- NOTE | 2024-02-10 10:32 | W.ANESPOSTOP ---
Postoperative Evaluation Date, Time and Location Date Performed: 02/10/24 Time Performed: 10:32 Patient Location: Obstetrics Vital Signs Most Recent Imported Vital Signs: Most Recent Vital Signs Temp Pulse Resp BP Pulse Ox 36.9 C 92 H 12 117/75 100 02/10/24 08:30 02/10/24 08:30 02/10/24 08:30 02/10/24 08:30 02/10/24 01:55 Pain Score Most Recent Pain Score: Most Recent Pain Score Pain Level 6 02/10/24 09:01 Assessment Mental Status: Awake (Alert & Oriented to Patient Baseline) Airway and Respiratory Function: Patent airway with normal (patient baseline) respiratory exam Cardiovascular Function: Hemodynamically Stable Hydration Status: Adequately Hydrated Nausea & Vomiting: No Nausea or Vomiting Pain: Pain is tolerable per patient Peripheral Nerve Block: Patient did not receive a nerve block Postoperative Comments:: Patient resting in bed, reports no ongoing paresthesias when asked. Motor/sensory function has returned. No further questions at this time.
--- NOTE | 2024-02-10 16:53 | OBCE_ITS ---
Date of service: 02/10/24 Time of Service: 16:54 History of Present Illness History of Present Illness Chief Complaint: Non-reassuring FHR tracing. Narrative: At 0130, I was called to by Barrie Aponte CNM for category 2 FHR tracing due to late and variables decelerations after epidural placed at 6cm cervical dilation. Upon arrival on patient's cervical exam was 9 cm and 0 station. There continued to be Category 2 FHR tracing with decelerations of FHR to 50 BPM x2 min. Repeat exam by CNM exam showed 10cm dilation and vtx @ +3. Pt began effective coached pushing in semifowlers which resulted in 15 minutes later of a vigorous male , shoulders delivered with ease and no cord entanglement was found. Arterial CBG pH 7.24, BE -4. Placenta delivered spontaneously, intact with normal cofiguration and 3 vessel cord. I performed repair of 2nd degree perineal laceration along with bilateral sulcus lacerations using 2-0 and 3-0 Vicryl suture. Pt had sustained avulsion of left labial epithelium with 2cm cystic hematoma protruding from under the labia majora. The edges of the avulsion were reapproximated with SQ closure using 2-0 Vicryl. Similar repair was performed on the contralateral labia majora. At the completion of the procedure that repair was hemostatic. Cervix was palpated and was intact and hemostatic. Pt tolerated the procedure well. [facility] All Active Problems (Updated 02/09/24 @ 09:48 by Katie Aponte) Encounter for induction of labor (Acute) 41 weeks gestation of (Acute) AMA (advanced maternal age) multigravida 35+ (Acute) (Acute) Uterine polyp (Acute) Anxiety (Acute) Depressive disorder (Chronic) Exercise-induced asthma (Acute 03/16/18) Hypothyroidism (Acute 12/07/13) Obsessive compulsive disorder (Acute) Ixnwb-Upnenqeju-Pqorh pattern (Acute) Medical History (Updated 02/09/24 @ 09:48 by Katie Aponte) Abdominal cramping Recurrent loss Lumbar back pain Right leg numbness Bilateral wrist pain Temporomandibular joint disorder Polycystic ovaries IC (interstitial cystitis) (12/01/16) Surgical History (Updated 07/21/23 @ 10:31 by Shirley Betancur CNM) History of cardiac radiofrequency ablation H/O dilation and curettage Post-operative state Family History (Updated 07/21/23 @ 10:32 by Shirley Betancur CNM) Mother Essential hypertension Heart disease Hyperlipidemia Mental disorder Thyroid disorder Father Personal history of malignant neoplasm LUNG Heart disease Mental disorder Grandfather Heart disease Mental disorder Grandfather Heart disease Mental disorder Grandmother Personal history of malignant neoplasm LUNG Heart disease Mental disorder Grandmother Heart disease Mental disorder Maternal Uncle Heart disease Mental disorder Maternal Aunt Diabetes Heart disease Mental disorder Thyroid disorder 03/16/18-reports 3 aunts great aunt Arthritis Paternal Uncle Diabetes Social History (Updated 06/30/23 @ 10:12 by Regla Moore MD) Smoking/Tobacco Use Status: Never Second Hand Exposure: No Smoking risk assessment performed?: Yes Alcohol Intake: never Drug use: Occasionally Substance use type: marijuana Details: Alcohol and marijuna use have stopped since + test. Adopted: No Caregiver/Support person: No Foster care: No Household members: spouse and other Details: H- Armond. 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[employer] Pets and animals: No Sexually active: Yes Do you think of yourself as: straight/heterosexual Current gender identity: female What is your relationship status?: How often do you talk on the phone with friends or family?: twice per week How often do you get together with friends or relatives?: once per week Do you belong to any clubs or organized social groups?: no Panel score (0-1 are the most socially isolated patients): 2 What type of physical activity do you participate in: bicycling, regular exercise and other Duration: 45-60 minutes/day Frequency: 3-4 times per week Special mukesh needs: No Seatbelt use: always Helmet use: Yes Helmet use: always Drive intox or ride w/intox driver supervisor: No Working smoke detector in home: Yes Fire extinguisher in home: Yes Carbon monox detector in home: Yes Do you feel safe at home: Yes Do you feel safe in your relationship?: Yes Victim of physical abuse: No Victim of emotional abuse: No Victim of sexual abuse: No History History 2 3 Para 0 Hx # Term Pregnancies 0 Multiple births 0 Hx # Pregnancies 0 Ectopic pregnancies 0 AB induced 0 Hx Number of Living Children 0 AB spontaneous 2 Past Pregnancies Del. Date GA/Weeks # Preg Succ Route Wgt Sex Labor Lgth Anesth esia Location Prov Complic 08/26/21 8 No No 02/19/22 8 No Delivery Date: 08/26/21 Last Updated by: Shirley Betancur CNM Missed AB, misoprostol Delivery Date: 02/19/22 Last Updated by: Shirley Betancur CNM Missed AB, D&C to complete Results Last Vital Signs Temp 98.2 F 02/10/24 16:21 Pulse 81 02/10/24 16:21 Resp 16 02/10/24 16:21 BP 88/57 L 02/10/24 16:21 Pulse Ox 97 02/10/24 16:21 Labs 02/09/24 09:08
[2024-02-10] MEDS: Docusate Sodium 100 MG CAP PO (18:02)
[2024-02-11] MEDS: Acetaminophen 325 MG TAB 650 MG PO ×3 (01:11→14:12)
[2024-02-11] MEDS: Ibuprofen 600 MG TAB PO ×3 (01:12→14:12)
[2024-02-11] MEDS: Levothyroxine 25 MCG TAB 50 MCG PO (06:30)
[2024-02-11 07:50] VITALS: BP 99/67; PULSE 100; TEMP 36.8
[2024-02-11] MEDS: Docusate Sodium 100 MG CAP PO (08:01)
--- NOTE | 2024-02-11 13:00 | OBPPV_ITS ---
Date of service: 02/11/24 Time of Service: 13:00 Assessment and Plan Assessment and plan (1) Term delivered: Status: Acute Assessment and plan: A: PPD#1, nml recovery, satisfied with experience is going well P: Pt desires discharge today Supports in place, FOB effective w/baby care Written instructions reviewed and given to pt RTO 2 & 6 wks to see chef instructor Undecided about BCM, abstinence for now, maybe IUD Subjective Subjective Patient comments: No complaints, Pain well controlled, Tolerating diet and Flatus present Patient's Mood: happy baby status: Doing well, Nursing well, Rooming in and Strong Bonding Observed Baldwin feeding status: Exclusively breast feeding Exam Physical Exam Vital signs: Temp Pulse Resp BP Pulse Ox 98.2 F 100 H 18 99/67 L 97 02/11/24 07:50 02/11/24 07:50 02/10/24 21:00 02/11/24 07:50 02/10/24 16:21 Vital Signs Reviewed: Yes Constitutional Constitutional: no acute distress and cooperative HEENT Exam HEENT Exam: Normal Neck Exam Neck Exam: Normal Breast Exam Bilateral: Breast Exam: Normal and Soft Nipple Exam: Normal and Uninjured Respiratory Exam Respiratory Exam: Normal Cardiovascular Exam Cardiovascular Exam: Normal Abdominal Exam Abdomen: Other (soft, nontender) Fundal Exam Fundus: Below Umbilicus and Firm Rectal Exam Rectal Exam: Normal Exam Perineum: Edematous and Repair Intact Extremities Exam Extremity Exam: Normal Back/Spine/Pelvis Exam Back Exam: Normal Skin Exam Skin Exam: Normal Neurological Exam Neurological Exam: Normal Psychiatric Exam Psychiatric Exam: Normal
--- NOTE | 2024-02-11 13:07 | DSE_ITS ---
Date of service: 02/11/24 Time of Service: 13:07 DS: Diagnosis Discharge Diagnosis (1) Term delivered: Status: Acute Discharge Plan Disposition Patient Disposition: Home Condition: Good Discharge Details Reason For Visit: Postdates AMA for Induction Admit Date/Time: 02/09/24 07:50 Admit Provider: Katie Aponte Attending Provider: Katie Aponte Primary Care Provider: Pat Creon Hospital Course Hospital Course: after induction of labor, epidural anesthesia, nml course, pt desires discharge on day 1 Home Meds and New Rx's Prescriptions: No Action triamcinolone acetonide 0.1 % cream 1 applic topical BID Qty: 30 3RF pantoprazole [Protonix] 40 mg tablet,delayed release (DR/EC) 40 mg PO DAILY Qty: 90 4RF PNV no.780-wcev-rmuki acid 28 mg iron- 800 mcg tablet 1 tab PO DAILY multivitamin [Daily Vitamin] 1 EACH tablet 1 tab PO DAILY glucosamine sulfate 2KCl 1,000 MG tablet 1 tab PO DAILY levothyroxine 50 mcg tablet 50 mcg PO DAILY Qty: 90 3RF propranolol 60 mg capsule,extended release 24 hr 60 mg PO DAILY Qty: 60 0RF mirtazapine 30 mg tablet 30 mg PO HS Qty: 60 0RF Discharge Instructions Additional Instructions: Please keep your 2 and 6 week appointments with you watch commander, call for any and all concerns. Stand Alone Forms: BC Instructions, BC Post Vaginal Deliver Activity:: Activity as Tolerated Equipment/Supplies:: No Equipment Needed Diet:: Normal Diet Discharge Orders Discharge Orders: Discharge Order (Routine); Ordered 02/11/24 Ordered By: Katie Aponte OB:DS Summary Summary Vaginal Delivery Method: Spontaneaous Laceration Description: Periurethral and Sulcus Laceration Extension: Second Degree Contraception Discussed Contraception Discussed: Yes Contraceptive Plan: Undecided, Infant Gender-Baby A: Male weight: 6 lb 5.06 oz Status at Discharge Functional status at discharge: independent ambulation Overall status at discharge: patient is progressing back to baseline Mental Status: mental status grossly normal Speech and Movement: speech and movement normal and speech clear Mood: congruent mood Affect: normal affect Quality:SDOH Health Related Social Needs: No Data to Display Exam Physical Exam Vital signs: Temp Pulse Resp BP Pulse Ox 98.2 F 100 H 18 99/67 L 97 05/02/24 07:50 02/11/24 07:50 02/10/24 21:00 02/11/24 07:50 02/10/24 16:21 Constitutional Constitutional: no acute distress and cooperative HEENT Exam HEENT Exam: Normal Neck Exam Neck Exam: Normal Breast Exam Bilateral: Breast Exam: Normal and Soft Respiratory Exam Respiratory Exam: Normal Cardiovascular Exam Cardiovascular Exam: Normal Abdominal Exam Abdomen: Other (soft, nontender) Fundal Exam Fundus: Below Umbilicus and Firm Rectal Exam Rectal Exam: Normal Exam Perineum: Edematous and Repair Intact Extremities Exam Extremity Exam: Normal Back/Spine/Pelvis Exam Back Exam: Normal Skin Exam Skin Exam: Normal Neurological Exam Neurological Exam: Normal Psychiatric Exam Psychiatric Exam: Normal PFSH All Active Problems (Updated 02/11/24 @ 13:00 by Katie Aponte) Term delivered (Acute) Uterine polyp (Acute) Anxiety (Acute) Depressive disorder (Chronic) Exercise-induced asthma (Acute 03/16/18) Hypothyroidism (Acute 12/07/13) Obsessive compulsive disorder (Acute) Wiqai-Pktzoufru-Hwctn pattern (Acute) Medical History (Updated 02/11/24 @ 13:00 by Katie Aponte) AMA (advanced maternal age) multigravida 35+ 41 weeks gestation of Encounter for induction of labor Abdominal cramping Recurrent loss Lumbar back pain Right leg numbness Bilateral wrist pain Temporomandibular joint disorder Polycystic ovaries IC (interstitial cystitis) (12/01/16) Surgical History (Updated 07/21/23 @ 10:31 by Shirley Betancur CNM) History of cardiac radiofrequency ablation H/O dilation and curettage Post-operative state Family History (Updated 07/21/23 @ 10:32 by Shirley Betancur CNM) Mother Essential hypertension Heart disease Hyperlipidemia Mental disorder Thyroid disorder Father Personal history of malignant neoplasm LUNG Heart disease Mental disorder Grandfather Heart disease Mental disorder Grandfather Heart disease Mental disorder Grandmother Personal history of malignant neoplasm LUNG Heart disease Mental disorder Grandmother Heart disease Mental disorder Maternal Uncle Heart disease Mental disorder Maternal Aunt Diabetes Heart disease Mental disorder Thyroid disorder 03/16/18-reports 3 aunts great aunt Arthritis Paternal Uncle Diabetes Social History (Updated 06/30/23 @ 10:12 by Regla Moore MD) Smoking/Tobacco Use Status: Never Second Hand Exposure: No Smoking risk assessment performed?: Yes Alcohol Intake: never Drug use: Occasionally Substance use type: marijuana Details: Alcohol and marijuna use have stopped since + test. Adopted: No Caregiver/Support person: No Foster care: No Household members: spouse and other Details: H- Armond. 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[employer] Pets and animals: No Sexually active: Yes Do you think of yourself as: straight/heterosexual Current gender identity: female What is your relationship status?: How often do you talk on the phone with friends or family?: twice per week How often do you get together with friends or relatives?: once per week Do you belong to any clubs or organized social groups?: no Panel score (0-1 are the most socially isolated patients): 2 What type of physical activity do you participate in: bicycling, regular exercise and other Duration: 45-60 minutes/day Frequency: 3-4 times per week Special mukesh needs: No Seatbelt use: always Helmet use: Yes Helmet use: always Drive intox or ride w/intox 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 Date GA/Weeks # Preg Succ Route Wgt Sex Labor Lgth Anesth esia Location Prov Complic 08/26/21 8 No No 02/19/22 8 No Delivery Date: 08/26/21 Last Updated by: Shirley Betancur CNM Missed AB, misoprostol Delivery Date: 02/19/22 Last Updated by: Shirley Betancur CNM Missed AB, D&C to complete DS: Data Vitals/I&O Vitals and I&O: Vital Signs Temperature 98.2 F 02/11/24 07:50 Temperature Source Oral 02/11/24 07:50 Pulse 100 H 02/11/24 07:50 Pulse Rhythm Regular 02/11/24 07:50 Respiratory Rate 18 02/10/24 21:00 Blood Pressure 99/67 L 02/11/24 07:50 Blood Pressure Mean 77 02/11/24 07:50 Pulse Oximetry 97 02/10/24 16:21 Oxygen Delivery Method Room Air 02/09/24 20:44 Oxygen Flow Rate 0 02/09/24 20:44 Pain Level 6 02/11/24 08:01 Intake & Output 02/10/24 02/11/24 02/11/24 23:59 11:59 23:59 Output Total 300 / 450 Balance -300 / 50 Output: Urine 300 / 450 Other: Urine Color Light Clarice
== END 2024-02-11 15:00 | disposition home or self-care (01) | DRG 805 ==
PROVIDERS: Admitting Provider Advanced Practice Midwife; PCP Nurse Practitioner; Visit Provider Advanced Practice Midwife
DX: O48.0 Post-term pregnancy (principal); O99.42 Diseases of the circulatory system complicating childbirth; Z37.0 Single live birth; O71.7 Obstetric hematoma of pelvis; I45.6 Pre-excitation syndrome; Z3A.41 41 weeks gestation of pregnancy; O99.344 Other mental disorders complicating childbirth; F41.8 Other specified anxiety disorders; O99.284 Endocrine, nutritional and metabolic diseases complicating childbirth; E03.9 Hypothyroidism, unspecified; O26.53 Maternal hypotension syndrome, third trimester; O76 Abnormality in fetal heart rate and rhythm complicating labor and delivery; O70.1 Second degree perineal laceration during delivery; E28.2 Polycystic ovarian syndrome; F42.9 Obsessive-compulsive disorder, unspecified
CPT/HCPCS: 36415; 85027; 86850; 86900; 86901; J3490

== ENCOUNTER 2024-02-12 11:05 | Emergency (ER) | payer OTHER, SELFPAY ==
[2024-02-12 11:08] VITALS: BP 159/86; PULSE 87; RESP 18; TEMP 36.9; O2SAT 97
--- NOTE | 2024-02-12 11:15 | RT.EKG_ITS ---
APPROVED REPORT Exam: Resting ECG Reason for Exam: visual change post Patient Location: E HR:85 bpm ECG Measurements Heart Rate 85 AXIS DE 155 P 44 QRSd 80 QRS 70 QT 335 T 12 QTc 398 Conclusion Sinus rhythm...normal P axis, V-rate 60- 99
[2024-02-12 11:23] VITALS: RESP 18
[2024-02-12 11:32] LABS: Abs Immature Grans 0.12 10^3/uL (0.0-0.06); Absolute Basophil Count 0.11 10^3/uL (0.0-0.2); Absolute Eosinophil Count 0.16 10^3/uL (0.0-0.7); Absolute Lymphocyte Count 1.83 10^3/uL (1.2-3.4); Absolute Monocyte Count 0.68 10^3/uL (0.1-0.8); Absolute Neutrophil Count 8.24 10^3/uL (1.2-6.7); Eosinophils % 1.4 %; HCT 29.8 % (36.0-46.0); HGB 9.9 g/dL (11.2-15.7); Immature Grans % 1.1 %; Lymphocytes % 16.4 %; MCH 28.8 pg (27.0-33.0); MCHC 33.2 % (32.0-36.0); MCV 87 fL (80-95); Monocytes % 6.1 %; Platelet Count 214 10^3/uL (130-400); RBC 3.44 10^6/uL (3.93-5.22); RDW 13.7 % (11.7-14.6); RDW-SD 42.5 fL; WBC 11.13 10^3/uL (4.4-10.8)
[2024-02-12 11:57] LABS: ALT 19 U/L (14-59); AST 23 U/L (15-37); Albumin 2.4 g/dL (3.4-5.0); Alkaline Phosphatase 86 U/L (46-116); Anion Gap 6.8 mmol/L (3-11); BUN 11 mg/dL (7-18); Bilirubin, Total 0.2 mg/dL (0.2-1.0); CO2 25.2 mmol/L (21.0-32.0); CREATININE 0.8 mg/dL (0.55-1.02); Calcium 8.5 mg/dL (8.5-10.1); Chloride 108 mmol/L (98-107); Estimated GFR 94.87 (mL/min/1.73m2); Glucose 87 mg/dL (74-106); Magnesium 1.6 mg/dL (1.8-2.4); Potassium 4.1 mmol/L (3.5-5.1); Sodium 140 mmol/L (136-145); Troponin I < 50 ng/L (< or =60)
--- NOTE | 2024-02-12 12:09 | ED.GENADUL_ITS ---
Discharge Plan Disposition Patient Disposition: Transfer-Acute Inpatient Care Specific Acute Inpt Facility: [facility] Condition: Serious Discharge Details Clinical Impression: Monocular visual disturbance, Hypomagnesemia Primary Care Provider: Pat Ceron ED Provider: Reinier Preston Home Meds and New Rx's Prescriptions: Continued multivitamin [Daily Vitamin] 1 EACH tablet 1 tab PO DAILY glucosamine sulfate 2KCl 1,000 MG tablet 1 tab PO DAILY levothyroxine 50 mcg tablet 50 mcg PO DAILY Qty: 90 3RF propranolol 60 mg capsule,extended release 24 hr 60 mg PO DAILY Qty: 60 0RF mirtazapine 30 mg tablet 30 mg PO HS Qty: 60 0RF Discharge Instructions Additional Instructions: You have been accepted in transfer by [facility] ophthalmology. Please go directly to ophthalmology clinic on [address] for further evaluation. [facility] [address] floor, [address] [place] [address] Please return to the emergency depat immediately for any worsening or new concerning symptoms. Referrals: [facility] [Provider Group] Discharge Data Discharge Date/Time-TO BE ENTERED AT DEPARTURE: 02/12/24 14:10 HPI General Mode of arrival: ambulatory . Date/Time Provider Initiated Documentation: 02/12/24 11:23 . Limitations to Documentation: no limitations . Information obtained by: patient . HPI Narrative: 43-year-old female presents 2 days with chief complaint of visual defect and hit her right eye. When she closed her right eyes she did not have symptoms in her left eye vision. Symptoms started on 930. No associated headache. No eye pain. Symptoms have improved since onset and now only feels like she is slightly disconnected. Related Data Home Medications Medication Instructions Recorded Confirmed glucosamine sulfate 2KCl 1,000 mg 1 tab PO DAILY 04/06/13 02/15/24 tablet multivitamin (Daily Vitamin tablet) 1 tab PO DAILY 04/06/13 02/15/24 levothyroxine 50 mcg tablet 50 mcg PO DAILY #90 tab-caps 06/17/23 02/15/24 propranolol 60 mg capsule,24 60 mg PO DAILY #60 tabs 01/18/24 02/15/24 hr,extended release mirtazapine 30 mg tablet 30 mg PO HS #60 tabs 01/25/24 02/15/24 Previous Rx's Medication Instructions Recorded levothyroxine 50 mcg tablet 50 mcg PO DAILY #90 tab-caps 06/17/23 propranolol 60 mg capsule,24 60 mg PO DAILY #60 tabs 01/18/24 hr,extended release mirtazapine 30 mg tablet 30 mg PO HS #60 tabs 01/25/24 Allergies Allergy/AdvReac Type Severity Reaction Status Date / Time bupropion Allergy Intermediate Hives Verified 02/17/24 15:56 Sulfa (Sulfonamide Allergy Intermediate hives Verified 02/17/24 15:56 Antibiotics) General Stated Complaint: EyeProblem KIM: 3 Review of Systems All systems reviewed & are unremarkable except as noted in HPI and below Constitutional Constitutional: Reports fatigue, Denies fever(s) and Reports lethargy Eyes Eyes: Reports as per HPI Neurologic Neurologic: Denies abnormal speech and Denies sensory deficit Endocrine Endocrine: Reports fatigue Exam Const General: cooperative and no acute distress HENMT Head: normocephalic and atraumatic Eyes General: appearance normal, both eyes and all related structures Visual Talamantes: normal visual talamantes by confrontation Alignment and Position: alignment normal Periorbital: periorbital findings normal Conjunctivae: normal conjunctivae Sclera: normal sclerae Pupils: PERRL EOM: EOM intact bilaterally Direct ophthalmoscopy: normal light reflex and no papilledema Neck Neck: trachea midline and supple Resp Auscultation: clear to auscultation bilaterally, no rales, no rhonchi and no wheezes Cardio Rate: regular rate and not tachycardic Rhythm: regular rhythm GI Palpation: soft, not firm, no guarding, no masses, not rigid and nontender Skin General skin exam: no rashes or lesions noted Neuro General: patient alert, patient awake, patient oriented x3 and tone normal Cognition: normal cognition Speech: speech normal Motor: strength 5/5 throughout Sensory Exam: no sensory deficits noted Extrem General: no edema Psych Appearance: grossly normal Mental Status: mental status grossly normal Speech and Movement: speech and movement normal Course Vital Signs Vital signs: Vital Signs Temperature 36.9 C 02/12/24 11:08 Pulse 87 02/12/24 11:08 Respiratory Rate 18 02/12/24 11:08 Blood Pressure 159/86 H 02/12/24 11:08 Pulse Oximetry 97 02/12/24 11:08 Temperature 36.9 C 02/12/24 11:08 Temperature Source Skin 02/12/24 11:08 Pulse 87 02/12/24 11:08 Respiratory Rate 18 02/12/24 11:23 Respiratory Effort Normal 02/12/24 11:23 Respiratory Depth Normal 02/12/24 11:23 Respiratory Pattern Normal 02/12/24 11:23 Blood Pressure 159/86 H 02/12/24 11:08 Blood Pressure Position Sitting 02/12/24 11:08 Pulse Oximetry 97 02/12/24 11:08 Oxygen Delivery Method Room Air 02/12/24 11:08 Oxygen Flow Rate 0 02/12/24 11:08 Lab/Test Results Lab/Test Results: Laboratory Tests Range/Units 02/12/24 11:20 WBC (4.4-10.8) 10^3/uL 11.13 H RBC (3.93-5.22) 10^6/uL 3.44 L Hgb (11.2-15.7) g/dL 9.9 L Hct (36.0-46.0) % 29.8 L MCV (80-95) fL 87 MCH (27.0-33.0) pg 28.8 MCHC (32.0-36.0) % 33.2 RDW (11.7-14.6) % 13.7 Plt Count (130-400) 10^3/uL 214 MPV (8.0-11.0) fL 10.0 Immature Gran % % 1.1 Neutrophils % % 74.0 Lymphocytes % % 16.4 Monocytes % % 6.1 Eosinophils % % 1.4 Basophils % % 1.0 Nucleated RBC % (0.0-0.3) % 0.0 Absolute Neutrophils (1.2-6.7) 10^3/uL 8.24 H Absolute Lymphocytes (1.2-3.4) 10^3/uL 1.83 Absolute Monocytes (0.1-0.8) 10^3/uL 0.68 Absolute Eosinophils (0.0-0.7) 10^3/uL 0.16 Absolute Basophils (0.0-0.2) 10^3/uL 0.11 Sodium (136-145) mmol/L 140 Potassium (3.5-5.1) mmol/L 4.1 Chloride (98-107) mmol/L 108 H Carbon Dioxide (21.0-32.0) mmol/L 25.2 Anion Gap (3-11) mmol/L 6.8 BUN (7-18) mg/dL 11 Creatinine (0.55-1.02) mg/dL 0.8 Est GFR (CKD-EPI 2020) (mL/min/1.73m2) 94.87 Glucose (74-106) mg/dL 87 Calcium (8.5-10.1) mg/dL 8.5 Magnesium (1.8-2.4) mg/dL 1.6 L Total Bilirubin (0.2-1.0) mg/dL 0.2 AST (15-37) U/L 23 ALT (14-59) U/L 19 Alkaline Phosphatase (46-116) U/L 86 Troponin I (< or =60) ng/L < 50 Total Protein (6.4-8.2) g/dL 6.0 L Albumin (3.4-5.0) g/dL 2.4 L Medical Decision Making 1233 --43-year-old here 2 days with painless monocular visual deficit. Symptoms now improving. Suspect amaurosis fugax -consider retinal vein occlusion versus retinal artery occlusion versus retinal vasospasm and retinal migraine. Patient mildly hypertensive on arrival with blood pressure 159/86. Funduscopic exam unremarkable. Initial labs reviewed and hypomagnesemia noted with magnesium 1.6. I will give magnesium 1 g IV. LFTs normal. Repeat blood pressure 119/70. I consulted OB and spoke with Dr. Hung, discussed ED presentation course, she reviewed OB record and notes no known inciting factors. Plan to contact [facility] ophthalmology to discuss further. -- EKG was reviewed and interpreted by me: Please report, sinus rhythm 85 bpm, normal axis, no ischemic findings, nondiagnostic. 1354 --I spoke with Dr. GILLILAND, ophthalmology on-call at [facility], discussed ED presentation and course, he recommends transfer so that patient can have formal ophthalmologic evaluation. He will accept the patient in transfer and plans to see her in his clinic for be at [facility]. Plan discussed with the patient and her and they provided informed refusal of ambulance. will drive patient to [facility]. Lab Data Lab results reviewed: Yes I reviewed the patient's lab results. Labs: Laboratory Tests Range/Units 02/12/24 02/12/24 11:20 13:00 WBC (4.4-10.8) 10^3/uL 11.13 H RBC (3.93-5.22) 10^6/uL 3.44 L Hgb (11.2-15.7) g/dL 9.9 L Hct (36.0-46.0) % 29.8 L MCV (80-95) fL 87 MCH (27.0-33.0) pg 28.8 MCHC (32.0-36.0) % 33.2 RDW (11.7-14.6) % 13.7 Plt Count (130-400) 10^3/uL 214 MPV (8.0-11.0) fL 10.0 Immature Gran % % 1.1 Neutrophils % % 74.0 Lymphocytes % % 16.4 Monocytes % % 6.1 Eosinophils % % 1.4 Basophils % % 1.0 Nucleated RBC % (0.0-0.3) % 0.0 Absolute Neutrophils (1.2-6.7) 10^3/uL 8.24 H Absolute Lymphocytes (1.2-3.4) 10^3/uL 1.83 Absolute Monocytes (0.1-0.8) 10^3/uL 0.68 Absolute Eosinophils (0.0-0.7) 10^3/uL 0.16 Absolute Basophils (0.0-0.2) 10^3/uL 0.11 Sodium (136-145) mmol/L 140 Potassium (3.5-5.1) mmol/L 4.1 Chloride (98-107) mmol/L 108 H Carbon Dioxide (21.0-32.0) mmol/L 25.2 Anion Gap (3-11) mmol/L 6.8 BUN (7-18) mg/dL 11 Creatinine (0.55-1.02) mg/dL 0.8 Est GFR (CKD-EPI 2020) (mL/min/1.73m2) 94.87 Glucose (74-106) mg/dL 87 Calcium (8.5-10.1) mg/dL 8.5 Magnesium (1.8-2.4) mg/dL 1.6 L Total Bilirubin (0.2-1.0) mg/dL 0.2 AST (15-37) U/L 23 ALT (14-59) U/L 19 Alkaline Phosphatase (46-116) U/L 86 Troponin I (< or =60) ng/L < 50 Total Protein (6.4-8.2) g/dL 6.0 L Albumin (3.4-5.0) g/dL 2.4 L Urine Color (Yellow) Yellow Urine Clarity (Clear) Sl Cloudy Urine pH (5-8) 6.0 Ur Specific [place] (1.005-1.025) 1.020 Urine Protein (Neg-Trace) mg/dL Negative Urine Ketones (Negative) mg/dL Negative Urine Blood (Negative) Large H Urine Nitrite (Negative) Negative Urine Bilirubin (Negative) Negative Urine Urobilinogen (Up to 0.2) mg/dL 0.2 Ur Leukocyte Esterase (Negative) Small H Urine RBC (0-2) HPF 20-50 H Urine WBC (0-5) HPF 10-20 H Ur Epithelial Cells (Negative) HPF Moderate Urine Crystals (Negative) HPF Negative Urine Bacteria (Negative) HPF Few Urine Casts (Negative) LPF Negative Urine Mucus (Negative) Trace Urine Other (Negative) Few Transitional Ur Culture Indicated? No/Sq. Contamination Urine Glucose (Negative) mg/dL Negative Quality:SDOH Health Related Social Needs: No Data to Display PFSH All Active Problems (Updated 02/17/24 @ 16:01 by Katie Aponte) Hematoma of labia majora (Acute) Myopia of both eyes with astigmatism (Acute ~02/2024) 02/12/24 DH Ophth Visual field defect (Acute ~02/2024) 02/12/24 DH Ophth care and examination (Acute) Hypomagnesemia (Acute) Monocular visual disturbance (Acute) Term delivered (Acute) Uterine polyp (Acute) Anxiety (Acute) Depressive disorder (Chronic) Exercise-induced asthma (Acute 03/16/18) Hypothyroidism (Acute 12/07/13) Obsessive compulsive disorder (Acute) Ershf-Cpsefjpqm-Rlnva pattern (Acute) Medical History (Updated 02/17/24 @ 16:01 by Katie Aponte) AMA (advanced maternal age) multigravida 35+ 41 weeks gestation of Encounter for induction of labor Abdominal cramping Recurrent loss Lumbar back pain Right leg numbness Bilateral wrist pain Temporomandibular joint disorder Polycystic ovaries IC (interstitial cystitis) (12/01/16) Surgical History (Updated 07/21/23 @ 10:31 by Shirley Betancur CNM) History of cardiac radiofrequency ablation H/O dilation and curettage Post-operative state Family History (Updated 07/21/23 @ 10:32 by Shirley Betancur CNM) Mother Essential hypertension Heart disease Hyperlipidemia Mental disorder Thyroid disorder Father Personal history of malignant neoplasm LUNG Heart disease Mental disorder Grandfather Heart disease Mental disorder Grandfather Heart disease Mental disorder Grandmother Personal history of malignant neoplasm LUNG Heart disease Mental disorder Grandmother Heart disease Mental disorder Maternal Uncle Heart disease Mental disorder Maternal Aunt Diabetes Heart disease Mental disorder Thyroid disorder 03/16/18-reports 3 aunts great aunt Arthritis Paternal Uncle Diabetes Social History (Updated 06/30/23 @ 10:12 by Regla Moore MD) Smoking/Tobacco Use Status: Never Second Hand Exposure: No Smoking risk assessment performed?: Yes Alcohol Intake: never Drug use: Occasionally Substance use type: marijuana Details: Alcohol and marijuna use have stopped since + test. Adopted: No Caregiver/Support person: No Foster care: No Household members: spouse and other Details: H- Armond. 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: No Sexually active: Yes Do you think of yourself as: straight/heterosexual Current gender identity: female What is your relationship status?: How often do you talk on the phone with friends or family?: twice per week How often do you get together with friends or relatives?: once per week Do you belong to any clubs or organized social groups?: no Panel score (0-1 are the most socially isolated patients): 2 What type of physical activity do you participate in: bicycling, regular exercise and other Duration: 45-60 minutes/day Frequency: 3-4 times per week Special mukesh needs: No Seatbelt use: always Helmet use: Yes Helmet use: always Drive 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 Date GA/Weeks # Preg Succ Route Wgt Sex Labor Lgth Anesth esia Location Prov Complic 08/26/21 8 No No 02/19/22 8 No 02/10/24 41 No Yes vaginal 2865.003 g Male regional Chantel Gunn CNM; Kiera MAHAN other Delivery Date: 08/26/21 Last Updated by: Shirley Betancur CNM Missed AB, misoprostol Delivery Date: 02/19/22 Last Updated by: Shirley Betancur CNM Missed AB, D&C to complete Delivery Date: 02/10/24 Last Updated by: Beverly Blackmon LPN Late decels; multiple vaginal lacerations;
[2024-02-12] MEDS: MAGNESIUM SULFATE 1 GM/100 ML BAG IVINF (12:12)
[2024-02-12 13:25] LABS: Bilirubin Negative (Negative); Blood Large (Negative); Clarity Sl Cloudy (Clear); Glucose Negative (Negative); Ketones Negative (Negative); Leukocyte Esterase Small (Negative); Nitrite Negative (Negative); Urobilinogen 0.2 mg/dL (Up to 0.2)
[2024-02-12 13:35] LABS: Bacteria Few HPF (Negative); Crystals Negative HPF (Negative); Epithelial Cells Moderate HPF (Negative); Mucus Trace (Negative); Other Cells Few Transitional (Negative); RBC 20-50 HPF (0-2)
[2024-02-12 13:36] LABS: C & S Indicated? No/Sq. Contamination; Casts Negative LPF (Negative)
== END 2024-02-12 14:10 | disposition short-term general hospital (02) ==
PROVIDERS: Emergency Provider Student in an Organized Health Care Education/Training Program; PCP Nurse Practitioner
DX: O90.89 Other complications of the puerperium, not elsewhere classified (principal); H53.8 Other visual disturbances; E83.42 Hypomagnesemia; O12.05 Gestational edema, complicating the puerperium
CPT/HCPCS: 80053; 93005; 96365; 99285; 81003; 81015; 83735; 84484; 85025; 93010; J3475

== ENCOUNTER 2024-03-23 11:17 | Outpatient (REF) | payer OTHER, SELFPAY ==
--- NOTE | 2024-03-23 10:30 | PAPFT_PTH ---
PATIENT: Sherry Skelton LOC: N U#:[id number] AGE/SX: 43/F ROOM: RE03/23/[address]: Katie Aponte CNM : 1980 BED: DIS: 03/23/2024 SPEC #: [id number] RECD: 03/23/24 12:44 STATUS: MAI RESuzie #: [id number] BOONE: 03/23/24 10:[address]: Katie Aponte DEPT: [facility] Cytology RECD BY: Desirae Ann ENTERED: 03/23/24 12:45 SP TYPE: PAPFT MICHELE DR: Pat Ceron APRN Tissues: 1 - CX/ENDOCX FOR PAP SMEARS Procedures: PAP THIN PREP/UVM Screening HPV DNA PROBE Comments: [id number]
== END 2024-03-23 11:18 | disposition home or self-care (01) ==
LOC: LBN 11:17
PROVIDERS: PCP Nurse Practitioner; Visit Provider Advanced Practice Midwife
DX: Z11.51 Encounter for screening for human papillomavirus (HPV) (principal); Z01.419 Encounter for gynecological examination (general) (routine) without abnormal findings
CPT/HCPCS: 88142; 87624

== ENCOUNTER 2024-03-23 11:40 | Outpatient (CLI) | payer OTHER, SELFPAY | END 2024-03-23 11:41 | disposition home or self-care (01) | LOC: LBO 11:40 | PROVIDERS: PCP Nurse Practitioner; Visit Provider Advanced Practice Midwife | DX: F32.9 Major depressive disorder, single episode, unspecified (principal) | CPT/HCPCS: 36415; 84443 ==

== ENCOUNTER 2025-05-15 03:20 | Outpatient (CLI) | payer OTHER, SELFPAY ==
[2025-05-15 16:51] LABS: Glucose Negative (Negative)
[2025-05-15 16:51] LABS: Abs Immature Grans 0.02 10^3/uL (0.0-0.06); HCT 40.1 % (36.0-46.0); HGB 14.0 g/dL (11.2-15.7); Immature Grans % 0.3 %; MCH 28.9 pg (27.0-33.0); MCHC 34.9 % (32.0-36.0); MCV 83 fL (80-95); MPV 9.3 fL (8.0-11.0); Platelet Count 292 10^3/uL (130-400); RBC 4.85 10^6/uL (3.93-5.22); RDW 12.2 % (11.7-14.6); RDW-SD 37.2 fL; WBC 6.07 10^3/uL (4.4-10.8)
[2025-05-15 17:15] LABS: Hemoglobin A1C 5.1 % (<5.7)
[2025-05-15 17:32] LABS: ALT 23 U/L (14-59); AST 19 U/L (15-37); Albumin 3.7 g/dL (3.4-5.0); Alkaline Phosphatase 58 U/L (46-116); Anion Gap 7.5 mmol/L (3-11); BUN 10 mg/dL (7-18); Bilirubin, Total 0.4 mg/dL (0.2-1.0); CO2 29.5 mmol/L (21.0-32.0); Calcium 8.8 mg/dL (8.5-10.1); Calculated LDL 87 mg/dL (<100); Chloride 104 mmol/L (98-107); Cholesterol 161 mg/dL (<200); Estimated GFR 94.28 (mL/min/1.73m2); Glucose 85 mg/dL (74-106); HDL Cholesterol 52 mg/dL (>or=50); Potassium 4.1 mmol/L (3.5-5.1); Sodium 141 mmol/L (136-145); TSH 3.38 uIU/mL (0.36-3.74); Total Protein 7.3 g/dL (6.4-8.2); Triglyceride 111 mg/dL (<150)
== END 2025-05-15 03:21 | disposition home or self-care (01) ==
PROVIDERS: PCP Nurse Practitioner; Visit Provider Family Medicine
DX: R53.83 Other fatigue (principal); E03.9 Hypothyroidism, unspecified
CPT/HCPCS: 36415; 80053; 80061; 81003; 83036; 84443; 85025